=== PATIENT | female | born 1950 | race Caucasian/White ===

== ENCOUNTER → 2018-01-27 | Outpatient (CLI) | payer OTHER | LOC: FIMAGING 07:58 | PROVIDERS: ATTEND Internal Medicine Hematology & Oncology | DX: C24.0 Malignant neoplasm of extrahepatic bile duct (principal) | CPT/HCPCS: 78306; A9503 ==

== ENCOUNTER → 2018-02-08 | Outpatient (CLI) | payer OTHER ==
[~2018-02-08] MED LIST: LIDOCAINE 1% 300 MG/30 ML SDV ONE
--- NOTE | 2018-02-10 14:10 | PDRADPN ---
Radiology Procedure Note Date of Procedure: 02/10/18 Radiologist: Mitch Lao Anesthesia: Local (Specify) Pre-op Diagnosis: ascites Post-op Diagnosis: same Indication: therapeutic Procedure: paracentesis Finding(s): RUQ 6F access Inf/Abcess present in the surg proc area at time of surgery?: No EBL: Minimal Complications: none
== END ==
LOC: FIMAGING 14:13
PROVIDERS: ATTEND Nurse Practitioner
PROC: 0W9F3ZZ Drainage of Abdominal Wall, Percutaneous Approach (ICD-10-PCS; principal; 2018-02-08)
DX: R18.8 Other ascites (principal)

== ENCOUNTER 2018-11-08 10:43 | Inpatient (IN) | payer OTHER ==
[2018-11-08] MEDS ORDERED: PROMETHAZINE HCL 25 MG/ML INJ IVP PRN (15:17)
[2018-11-08] MEDS ORDERED: ONDANSETRON DISINTEGRATING 4 MG TAB PO PRN (15:17)
[2018-11-08] MEDS ORDERED: ONDANSETRON 4 MG/2 ML VIAL IVP PRN (15:17)
[2018-11-08] MEDS ORDERED: NS 1,000 ML IV ONE (15:17)
--- NOTE | 2018-11-08 15:22 | PDGENHP ---
History and Physical - Chief Complaint abdominal pain - History of Present Illness 68 yo female with h/o cholangiocarcinoma diagnosed in 01/2018 presents to ED from [facility] with acute abdominal pain with N/V. She has been treated q21d with Cisplatin/Gemcitabine and has tolerated this well. She was due for chemo today , which was held due to her acute abdominal pain, nausea and vomiting. She notes over the past 2 days, she has felt nausea and poor appetite with decreased oral intake. She awoke this morning with abdominal pain and this became severe by the time she arrived for her chemo appointment today. She has had a low grade fever. No jaundice noted. Denies abdominal distention, but feels a little bloated. Not sure about weight loss. No CP, SOB or cough. At [facility], she was tachycardic and received 1L NS. Upon arrival to several hours later, she remains tachycardic with HR 120's-130's. Her temp is 99.8. Her BP is 90/59. She received IV Morphine, but this has not improved her pain. She continues to have severe pain. She is admitted for further evaluation. 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 anemia 2/2 chemo. thrombocytopenia 2/2 chemo - Surgical History Additional surgical history: Port placement left chest - Family History Positive for: cancer Additional family history: mom had lung cancer - Social History Smoking Status: Never smoked Alcohol Use: None Drug Use: None Additional social history: Lives independently, 2 children at bedside Review of Systems Review of Systems: ROS: 10pt was reviewed & negative except for what was stated in HPI & below Physical Exam Physical Exam: Temp Pulse Resp BP Pulse Ox 37.7 C 121 H 16 98/59 L 93 11/08/18 15:11 11/08/18 15:11 11/08/18 15:11 11/08/18 15:11 11/08/18 15:11 Constitutional: no apparent distress Eyes: PERRL Ears, Nose, Mouth, Throat: moist mucous membranes Cardiovascular: regular rate and rhythym Respiratory: no respiratory distress, clear to auscultation Gastrointestinal: other (soft, mild distention, +TTP with some concern for rigidity and pain on percussion, absent bowel tones) Skin: warm Musculoskeletal: full muscle strength Neurologic: AAOx3 Psychiatric: interacting appropriately Assessment & Plan Assessment: Abdominal pain with N/V - with h/o cholangiocarcionoma and biliary stents. DDx : progressing cancer, SBO, cholangitis, blocked biliary stent (though LFT's nl) . WBC's nl, afebrile, though temp up to 99.8 here. -stat CT abd/pelvis -send BCx's, lactate, lipase -cover with zosyn for possible cholangitis -pain control, anti-emetics, IVF's -note presence of biliary stent, due for exchange this Thurs Cholangiocarcinoma with mets to liver/bone - followed by Dr. Lucero, on Cisplatin /Gemcitabine since diagnosis in 01/2018, has previously been tolerating chemo well. Chemo held today given acute illness above. -Oncology notified of admission, Dr. So will see pt tomorrow Anemia - may be related to chemo, has been steadily trending down since 01/2018, at which time hgb was nl -check iron studies -transfuse 1 u prbc's given hgb down to 7.1 with tachycardia and need for volume replacement Hyponatremia - suspect hypovolemic hyponatremia given poor oral intake -NS and follow -check urine Na, urine osm Tachycardia - suspect sinus tac 2/2 pain, volume depletion, possible sepsis -check EKG -consider PE w/u if not resolving with IVF's (no hypoxemia, SOB or pleuritic symptoms) DVT PPLX - Lovenox to start in am if nothing surgical on CT Full code Dispo - admit to inpt, anticipate >48 hrs hospitalization for ongoing evaluation and management of acute abdominal pain
[2018-11-08] MEDS: HYDROmorphONE/DILAUDID 1 MG/ML INJ IVP PRN ×3 (15:30→21:07)
[2018-11-08] MEDS: PIPERACILLIN/TAZO 4.5 GM/DEX 100 ML IV SCH ×2 (16:09→22:05)
[2018-11-08] MEDS: ACETAMINOPHEN 325 MG TAB PO PRN ×2 (16:14→20:40)
[2018-11-08] MEDS ORDERED: IOPAMIDOL (ISOVUE-300) 100 ML BTL ONE (17:04)
[2018-11-08] MEDS ORDERED: NS 500 ML IV ONE (17:49)
[2018-11-08] MEDS ORDERED: PIPERACILLIN/TAZO 4.5 GM/DEX 100 ML IV SCH (18:00)
--- NOTE | 2018-11-08 18:08 | PDMN ---
Medical Necessity Medical necessity: Pt meets IP criteria as of 11/08/2018 per and [id number] ( Gallbladder or bile duct inflammation or stone); est los > 2 mn for ongoing tx and management of acute cholangitis with fever, tachycardia, leukocytosis and anemia in the setting of cholangiocarcinoma with mets to bone and liver currently being treated with chemo; requiring IV ABX, serial labs, blood transfusion, pain and nausea control, and oncology consultation.
[2018-11-08 22:15] LABS: PLATELET COUNT 103 10^3/uL (150-400)
[2018-11-09] MEDS: ACETAMINOPHEN 325 MG TAB PO PRN ×2 (00:01→06:37)
[2018-11-09] MEDS: PIPERACILLIN/TAZO 4.5 GM/DEX 100 ML IV SCH (03:17)
[2018-11-09] MEDS: HYDROmorphONE/DILAUDID 1 MG/ML INJ IVP PRN ×4 (03:17→20:02)
[2018-11-09 04:21] LABS: PLATELET COUNT 81 10^3/uL (150-400)
[2018-11-09] MEDS ORDERED: NS 1,000 ML IV ONE (05:15)
--- NOTE | 2018-11-09 06:15 | CPEKG ---
Test Reason : OPEN Blood Pressure : / mmHG Vent. Rate : 125 BPM Atrial Rate : 126 BPM P-R Int : 089 ms QRS Dur : 072 ms QT Int : 264 ms P-R-T Axes : 098 000 210 degrees QTc Int : 381 ms Sinus tachycardia Indeterminate axis Confirmed by Scott Castellanos ([id number]) on 11/09/2018 6:15:16 AM Referred By: Confirmed By:Scott Castellanos
--- NOTE | 2018-11-09 08:09 | GCON ---
The patient is a 68-year-old female with a history of cholangiocarcinoma, which has been diagnosed fo r 7 months. She has been on chemotherapy with a port. She had carcinomatosis with ascites, which mario s required some paracentesis, and she has had known liver metastases. She has had bile duct stents, which have relieved her jaundice. She came to the hospital tonight complaining of severe abdominal p ain, not well localized. She has had some nausea and vomiting. She has had no diarrhea, no jaundice . She did have a low-grade fever earlier today but never even reaching 100. ALLERGIES: None. MEDICATIONS: Listed in the chart. PAST MEDICAL HISTORY: Includes cholangiocarcinoma with metastases to liver and bone and peritoneum. She has a history of thrombocytopenia and chronic anemia. She had a port placed in her left chest. FAMILY HISTORY: Positive for cancer. SOCIAL HISTORY: Reveals she does not smoke. She lives independently. REVIEW OF SYSTEMS: Negative on a full 10-point review except as related to the HPI. PHYSICAL EXAMINATION: GENERAL: An alert, reasonably comfortable 68-year-old female who is in no acu te distress, low-grade temperature. HEENT: Nonicteric without adenopathy. No oral lesions. NECK: Supple, nontender. CHEST: Symmetrical breath sounds. COR: Regular rhythm, mild tachycardia. ABD OMEN: Slightly distended, soft but diffusely tender, but with no real peritoneal signs and no palpab le masses. She is mildly tender in the right upper quadrant compared to the rest. Bowel sounds are decreased. EXTREMITIES: Reveal full range of motion, full pulses. NEUROLOGIC: Physiologic with in tact cranial nerves. PSYCH: Reveals her to be alert, oriented and cooperative. IMPRESSION: Abdominal pain of uncertain etiology. CT scan shows a large cystic mass in the right lo be of the liver consistent with her cholangiocarcinoma, but according to family, she has never had a big mass like that, has had only small, tiny lesions before. Her previous CT scans are not readily a vailable tonight. She has no other signs of abdominal problems including no free air on the CT scan. She does have some minimal ascites and some thickening in the mesentery of the small bowel. It is not clear to me what the etiology of her pain is, although I suspect that she is febrile and possibly early sepsis from this possible abscess in the right lobe of the liver. PLAN: Follow her closely, find her previous scans for comparison, consideration for laparoscopy if s he fails to improve. We will also repeat her CBC and lactate this evening. Copy requested to: Dr. Lucero /[id number]/MODL
[2018-11-09] MEDS: SODIUM FERRIC GLUCONAT/SUCROSE 125 MG in NS 100 ML IV SCH (08:28)
[2018-11-09] MEDS ORDERED: ENOXAPARIN 40 MG/0.4 ML SYR SC SCH (09:00)
[2018-11-09] MEDS ORDERED: PROCHLORPERAZINE MALEATE 10 MG TAB PO PRN (09:11)
[2018-11-09] MEDS ORDERED: ALTEPLASE 2 MG VIAL IVP PRN ×2 (09:12→14:23)
[2018-11-09] MEDS ORDERED: VASOPRESSIN 25 UNIT in NS 250 ML IV SCH (09:15)
--- NOTE | 2018-11-09 09:23 | HOSPPROG ---
Hospitalist Progress Note Assessment/Plan: # septic shock with lactic acidosis and renal failure - MAP currently 54 after transfusion, fluid bolus - transfer to ICU, place PICC, start pressors, cont IVF # hepatic abscess - will drain via IR today - appreciate Dr Cain' assistance - Dr Wilcox will consult - jessica # biliary stents - will need to discuss with GI at some point regarding changing ; need control of infection first # cholangiocarcinoma - getting chemo at [facility] - will d/w Dr So # acute renal failure - d/t sepsis; she also got contrast yesterday # anemia - s/p 1U PRBC # thrombocytopenia - will cont to follow Subjective: still c/o R sided abd pain Objective: Vital Signs Temp Pulse Resp BP Pulse Ox 36.6 C 94 16 81/50 L 97 11/09/18 08:13 11/09/18 08:13 11/09/18 08:13 11/09/18 08:13 11/09/18 08:13 Laboratory Results 11/09/18 04:00 11/09/18 04:00 11/08/18 11/09/18 11/10/18 05:59 05:59 05:59 Intake Total 3700 Output Total 275 Balance 3425 chart reviewed imaging reviewed with Dr Kenney 40 mins floor CC time managing septic shock - Physical Exam Constitutional: chronically ill appearing Cardiovascular: regular rate and rhythym, no murmur, rub, or gallop Respiratory: no respiratory distress, no rales or rhonchi, clear to auscultation Gastrointestinal: normoactive bowel sounds, other (soft, significant R sided TTP ) ICD10 Worksheet Patient Problems: Problems Problem Status Onset Sepsis Acute
--- NOTE | 2018-11-09 10:03 | ASMTCMCOM ---
CM Note CM Note Notes: Patient chart reviewed. 68 year old female with DNR status admitted via ED for c/o severe abdominal pain. Diagnosis of cholangiocarcinoma 7 months ago and has been undergoing treatments. Per CT large mass on liver is newer and could represent abscess This am she is exhibiting signs of sepsis and will transfer to ICU for more support. CM to follow for needs. Plan: TBD Date Signed: 11/09/2018 10:02 AM Electronically Signed By:Rebekah Wen RN
[2018-11-09 10:20] LABS: INR 1.99 (0.83-1.16); PROTIME(PATIENT) 22.7 SEC (12.0-15.0)
[2018-11-09] MEDS ORDERED: PROTOCOL CALCIUM 1 DOSE IV PRN (10:27)
[2018-11-09] MEDS ORDERED: CALCIUM GLUCONATE 50 ML IV ONE (11:24)
[2018-11-09] MEDS ORDERED: IOPAMIDOL (ISOVUE-300) 100 ML BTL ONE (12:02)
[2018-11-09] MEDS ORDERED: LIDOCAINE 1% 300 MG/30 ML SDV ONE ×2 (12:02→14:21)
[2018-11-09] MEDS: NS 1,000 ML IV SCH (12:10)
[2018-11-09] MEDS: PIPERACILLIN/TAZO 2.25 GM/DEX 50 ML IV SCH ×2 (12:16→17:32)
--- NOTE | 2018-11-09 13:19 | SOAPPROG ---
SOAP Progress Note Assessment/Plan: Assessment/Plan: 68 Y F hx cholangiocarcinoma c carcinomatosis, ascites, liver mets, treated c chemotherapy via port who now presents with abdominal pain and likely liver abscess. Discussed c Drs. Cain and Brenden. Patient to go to IR today for attempt at guided percutaneous drainage. If unable to drain, then may still need surgical drainage/diagnosis. Trying to obtain previous CT scans from outside institution. S: feeling about "50%" better (less pain) she says. has baseline constipation. no nausea. no chills or sweats. O: alert, nad wdwn, mmm, no jaundice ctab anteriorly rrr abd rare BS. +softly distended. 11/09/18 13:14 Objective: Vital Signs Temp Pulse Resp BP Pulse Ox 36.8 C 99 21 H 90/44 L 98 11/09/18 12:00 11/09/18 12:00 11/09/18 12:00 11/09/18 12:00 11/09/18 12:00 Laboratory Results 11/09/18 09:25 11/09/18 09:25 11/08/18 11/09/18 11/10/18 05:59 05:59 05:59 Intake Total 3700 Output Total 275 250 Balance 3425 -250 PT 22.7 SEC (12.0-15.0) H 11/09/18 09:52 INR 1.99 (0.83-1.16) H 11/09/18 09:52 ICD10 Worksheet Patient Problems: Problems Problem Status Onset Sepsis Acute
--- NOTE | 2018-11-09 13:27 | GCON ---
INFECTIOUS DISEASE CONSULTATION REFERRING PHYSICIAN: Napoleon Benjamin MD REASON FOR CONSULTATION: Possible liver abscess. HISTORY OF PRESENT ILLNESS: 68-year-old woman with a history of cholangiocarcinoma diagnosed in January of 2018, who is directly admitted to the hospital 11/08/2018, for sudden onset of abdominal pain associated with nausea, vomiting. The patient has cholangiocarcinoma and is treated every 21 days with cisplatin and gemcitabine, and overall has been tolerating this well. Notably, patient has had progressive abdominal distention with minimal abdominal pain over the last 2 weeks. She has had more days that are bad than good over this duration, but on 11/08/2018, patient developed sudden onset of diffuse abdominal pain with associated nausea, vomiting, and presented to [facility], who directly admitted her to the hospital yesterday. At [facility], she was tachycardic, received IV fluids, and had a low-grade temperature. The patient subsequently underwent a CT scan on , and she was found to have a 7.5 x 5.3 cm cystic mass that was new in the liver. Patient has known biliary obstruction in the past and has both left and right hepatic biliary stents with pneumobilia that were present on the CT scan. The patient was due for her biliary stent exchange in the next week. Her appetite is overall low, but has not dramatically changed over this duration. She has not had a significant amount of weight loss. No diarrhea. She has chronic constipation. She states that her abdominal pain is significantly better overnight, characterizing at as 50% improved. No further nausea/vomiting. Overnight, patient received IV Zosyn. Planned transfer to the ICU today for ongoing hypotension and development of acute renal failure with a creatinine of 2.1. PAST MEDICAL HISTORY: 1. Cholangiocarcinoma, 01/19/2018, with mets to liver and bone. The patient is DNR, but does desire aggressive treatment for reversible problems. 2. Anemia secondary to chemotherapy, thrombocytopenia secondary to chemo. PAST SURGICAL HISTORY: She had a port placement in her left chest. FAMILY HISTORY: Positive for lung cancer in her mom. SOCIAL HISTORY: She has 2 children, who are at bedside. She has never smoked. 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 No international travel. Last travel was about a year and half ago when she traveled to [place]. ALLERGIES: NKDA. MEDICATIONS: Zosyn 4.5 g IV q.6hours. No anticoagulants, no other antibiotics. She is on Lovenox since admission and started on dexamethasone 2 p.o. b.i.d. for sepsis protocol. REVIEW OF SYSTEMS: A complete 10-point review of systems was performed at the bedside with the patient and her 2 kids at bedside as well. PHYSICAL EXAM: VITAL SIGNS: Blood pressure is 94/43, heart 91, respiratory rate 16, saturation 96% on room air, temperature 36.4, T-max 37.7. GENERAL: This is a very pleasant woman who is in no respiratory distress. HEENT: Very dry mucous membranes. Good dentition. No oral ulcerations or exudate. NECK: Supple. CARDIOVASCULAR: Regular rate. No murmurs. CHEST: She had bibasilar crackles, right greater than left. ABDOMEN: Distended, firm. She had diffuse abdominal pain to palpation, but no peritoneal signs. Abdominal pain was worse in the left lower quadrant. EXTREMITIES: No clubbing, cyanosis, or edema. No peripheral stigmata of endocarditis. NEUROLOGIC: She is alert and oriented x4 , moving all 4 extremities equally. She did have a little bit of word-finding troubles, but reports this is at baseline, which is endorsed by her family as well since starting chemotherapy. SKIN: No rashes. Port L upper chest wall c/d /i LABORATORY: White count 8700, with 35% neutrophils, 42% bands, hematocrit 22, platelets 81, creatinine 2.0, total bilirubin 1.5, AST 21, ALT 3.9, alkaline phosphatase 42. Blood cultures from November 08 are pending. IMAGING: As per HPI, which was personally reviewed by me. IMPRESSION: This is a 68-year-old woman with metastatic cholangiocarcinoma, on chemotherapy, who presents with severe and sudden onset abdominal pain, subsequently found to have hypotension, bandemia, and acute renal failure. Certainly, this cystic mass 7.5 x 5.3 is certainly at high risk for being a liver abscess due to poor biliary drainage. Also could consider necrotic malignancy, but lack of its presence in the imaging in the last month or 2 makes that less likely. PLAN: 1. Agree with IR drainage. 2. Adjust renal dosing of Zosyn to 2.25 IV q.6 for a creatinine clearance in the 20s. 3. Will continue to follow cultures and evaluate cultures from the IR. Parasitic liver abscess very unlikely in this woman with minimal travel history. Time: 75 minutes, greater than 50% of time spent in education and counseling regarding the etiology of liver abscess and planned treatment, including antibiotic dose adjustments for renal insufficiency and longer duration of antibiotic therapy. ID will continue to see the patient on a daily basis. /[id number]/MODL MTDD
[2018-11-09] MEDS ORDERED: NS 500 ML IV ONE (13:30)
[2018-11-09] MEDS: NOREPINEPHRINE BITARTRATE 4 MG in NS 500 ML IV SCH ×2 (13:40→13:41)
--- NOTE | 2018-11-09 13:47 | GCON ---
BUSINESS OFFICE ASSISTANT CONSULTATION REASON FOR ADMISSION: Fever, cholangiocarcinoma. HISTORY OF PRESENT ILLNESS: The patient is an extremely pleasant 68-year-old white female with a pas t medical history, including cholangiocarcinoma. This was diagnosed in December of this year. She h as metastases to both liver and bone. She has undergone chemotherapy. She was originally at [facility] and at that time was found to be tachycardic. She was given hydration, but she continued to have abdominal pain. She was seen in the emergency room, was subsequently admitted wit h a diagnosis of abdominal pain and cholangiocarcinoma. A CT scan of the abdomen and pelvis was orde red. This revealed a large right hepatic multiloculated cystic mass, as well as an abscess formation . There are also scattered hepatic hypodense lesions suggestive of intrahepatic metastatic disease. She was subsequently admitted to the intensive care unit for hypotension. A PICC line has been plac ed, and she is scheduled for drainage of her abscess per Interventional Radiology. In discussion wit h the patient, she states overall she feels markedly improved. Her abdominal pain has subsided mostl y. She has no nausea or vomiting. There is no chest pain, pleuritic-type chest pain or angina equiv alent. There is no cough or production of sputum. She is currently resting comfortably after PICC l ine was placed. REVIEW OF SYSTEMS: Ten-point review of systems was performed and negative, except for what is listed in the HPI. PAST MEDICAL HISTORY: Again significant for metastatic cholangiocarcinoma with history of biliary st ents. She has metastasis to liver and bone. She also has thrombocytopenia and anemia. FAMILY HISTORY: Significant for lung cancer. SOCIAL HISTORY: No history of tobacco use. Very infrequent alcohol use. She is . She has lived in [place] for 2-1/2 years, is originally from [place], [place]. She has excellent family bone pport. ALLERGIES: No known allergies to medications. PHYSICAL EXAM: VITAL SIGNS: Blood pressure is 90/44, pulse 99, respirations 21, temperature 36.8, o xygen saturation 98% on room air. GENERAL: She is a well-developed, well-nourished, elderly white f emale who is resting comfortably, in no acute distress. HEENT: Eyes are PERRL, EOMI. Throat shows no erythema or tonsillar hypertrophy. NECK: Supple. There is no cervical adenopathy. HEART: Regu lar rate and rhythm, without murmurs, rubs, or gallops. LUNGS: Clear to auscultation. No wheezes o r rhonchi. ABDOMEN: Soft. She has right upper quadrant tenderness. Bowel sounds are diminished. EXTREMITIES: No clubbing, cyanosis, or edema. LABORATORIES: White count is 10.2, hemoglobin 7.5, hematocrit 23, platelet count 76. INR is 1.99. Sodium 132, potassium 4.2, chloride 104. CO2 is 18, BUN 25, creatinine 1.9. Glucose is 81. IMPRESSION: 1. Metastatic cholangiocarcinoma with biliary stents. 2. Sepsis. 3. Liver abscess. 4. Abdominal pain, improved. 5. Thrombocytopenia. 6. Anemia. RECOMMENDATIONS: 1. Adequate pain control. 2. PICC line has been placed. 3. Patient to go to Interventional Radiology for drainage of abscess. 4. Antibiotics per Infectious Disease. 5. DVT and PE prophylaxis. 6. Stress ulcer prophylaxis. 7. Adequate nutrition. /[id number]/MODL
[2018-11-09] MEDS ORDERED: NALOXONE HCL 0.4 MG/ML INJ IVP PRN (14:23)
[2018-11-09] MEDS ORDERED: MEPERIDINE 25 MG/ML SYR IVP PRN (14:23)
[2018-11-09] MEDS ORDERED: fentaNYL 100 MCG/2 ML INJ IVP PRN (14:23)
[2018-11-09] MEDS ORDERED: NS 1,000 ML IV SCH (14:30)
--- NOTE | 2018-11-09 15:49 | PDPROPOC ---
Sedation Plan of Care Sedation Plan of Care: vital signs stable, mental status noted, patient educated of risks, benefits, alternatives, patient can tolerate sedation ASA Classification: ASA 3 Planned drugs: fentanyl, midazolam Mallampati Score: Class 2 Mallampati Reference Image: Patient passed 3-3-2 rule?: Yes
--- NOTE | 2018-11-09 15:50 | PDCONSULT ---
[employer] Systems Administrator Note: Hematology/oncology consultation note Requesting provider: Penelope Vo Reason for consultation: History of cholangiocarcinoma History of present illness: Mrs. Ayala is a 68-year-old female with history of cholangiocarcinoma who was admitted for worsening abdominal pain from our clinic. She has well- established within our clinic here in [place] and sees my partner Dr. Yolanda Lucero for advanced cholangiocarcinoma. She was initially diagnosed with an extrahepatic cholangiocarcinoma in January of 2018. She is found to have metastatic disease to the bone. She was initiated on first-line palliative chemotherapy with gemcitabine and cisplatin. She did have a dramatic response within the liver on scans in March of 2018. Her last set of imaging was in September 2018 with a PET that demonstrated uptake within the lesion in the liver. She did have up trending CA 19-9 with concern for possible progression. She has received a total of 13 cycles of gemcitabine and cisplatin with the last dose being 10/25/2018. She then presented to our clinic yesterday and had increasing symptoms of abdominal pain and nausea. She was admitted to [facility] with tachycardia, renal failure. She had a CT of the abdomen on 11/08/2018 the demonstrates 7.5 x 5.3 cm mass within the liver. She does have biliary stent in place as was scheduled to be changed out next week. On admission it was concerned that she might have a biliary abscess and was placed on broad-spectrum antibiotics. She has since underwent IR guided attempted drainage. Past medical history and surgical history: Cholangiocarcinoma as per above Port placement Family history: Mother had lung cancer Social history: She is a never smoker. Review of systems A 12 point review systems was taken was otherwise negative unless stated in HPI Allergies no known drug allergies Medications: Reviewed in [facility] Tem Pulse Resp BP Pulse Ox 36.8 C 99 21 H 117/55 L 100 11/09/18 12:00 11/09/18 12:00 11/09/18 12:00 11/09/18 15:35 11/09/18 15:36 O2 (L/minute) 1 General: Ill-appearing female, groggy from recent sedation from procedure HEENT: Oxygen in place oropharynx is clear extra movements are intact Pulmonary: Clear on anterior auscultation Cardiovascular: Regular rhythm Abdomen: Soft nontender nondistended bowel sounds are present no rebound or guarding, 2 right upper quadrant drains in place with maday pus draining. Extremities: Port in place no cyanosis or clubbing Skin: No skin lesions Neuro: Moving all extremities WBC 10.25 10^3/uL (3.80-9.50) H 11/09/18 09:25 RBC 2.58 10^6/uL (4.18-5.33) L 11/09/18 09:25 Hgb 7.5 g/dL (12.6-16.3) L 11/09/18 09:25 Hct 23.7 % (38.0-47.0) L 11/09/18 09:25 MCV 91.9 fL (81.5-99.8) 11/09/18 09:25 MCH 29.1 pg (27.9-34.1) 11/09/18 09:25 MCHC 31.6 g/dL (32.4-36.7) L 11/09/18 09:25 RDW 19.9 % (11.5-15.2) H 11/09/18 09:25 Plt Count 76 10^3/uL (150-400) L 11/09/18 09:25 MPV 11.1 fL (8.7-11.7) 11/09/18 04:00 Neut % (Auto) Not Reported 11/09/18 04:00 Lymph % (Auto) Not Reported 11/09/18 04:00 [place] % (Auto) Not Reported 11/09/18 04:00 Eos % (Auto) Not Reported 11/09/18 04:00 Baso % (Auto) Not Reported 11/09/18 04:00 Nucleat RBC Rel Count Not Reported 11/09/18 04:00 Absolute Neuts (auto) Not Reported 11/09/18 04:00 Absolute Lymphs (auto) Not Reported 11/09/18 04:00 Absolute Monos (auto) Not Reported 11/09/18 04:00 Absolute Eos (auto) Not Reported 11/09/18 04:00 Absolute Basos (auto) Not Reported 11/09/18 04:00 Absolute Nucleated RBC Not Reported 11/09/18 04:00 Immature Gran % Not Reported 11/09/18 04:00 Seg Neutrophils % 35.0 % 11/09/18 04:00 Band Neutrophils % 42.0 % 11/09/18 04:00 Lymphocytes % 8.0 % 11/09/18 04:00 Monocytes % 9.0 % 11/09/18 04:00 Eosinophils % 0.0 % 11/09/18 04:00 Basophils % 0.0 % 11/09/18 04:00 Metamyelocytes % 3.0 % 11/09/18 04:00 Myelocytes % 3.0 % 11/09/18 04:00 Promyelocytes % 0.0 % 11/09/18 04:00 Blast Cells % 0.0 % 11/09/18 04:00 Immature Gran # Not Reported 11/09/18 04:00 Absolute Seg Neuts 3.05 10^3/uL (1.70-6.50) 11/09/18 04:00 Absolute Band Neuts 3.66 10^3/uL (0.00-0.70) H 11/09/18 04:00 Absolute Lymphocytes 0.70 10^3/uL (1.00-3.00) L 11/09/18 04:00 Absolute Monocytes 0.78 10^3/uL (0.30-0.80) 11/09/18 04:00 Absolute Eosinophils 0.00 10^3/uL (0.03-0.40) L 11/09/18 04:00 Absolute Basophils 0.00 10^3/uL (0.02-0.10) L 11/09/18 04:00 Absolute Metamyelocyte 0.26 10^3/mL (0.00-0.00) H 11/09/18 04:00 Absolute Myelocytes 0.26 10^3/mL (0.00-0.00) H 11/09/18 04:00 Absolute Promyelocytes 0.00 10^3/uL (0.00-0.00) 11/09/18 04:00 Absolute Plasma Cells 0.00 10^3/uL (0.00-0.00) 11/09/18 04:00 Nucleated RBCs 0 /100 WBC (0-0) 11/09/18 04:00 Absolute Blast Cells 0.00 10^3/uL (0.00-0.00) 11/09/18 04:00 Plasma Cells % 0.0 % 11/09/18 04:00 Toxic Granulation PRESENT H 11/09/18 04:00 Toxic Vacuolation PRESENT H 11/09/18 04:00 Platelet Estimate DECREASED (ADEQ) L 11/09/18 04:00 Polychromasia 2+ H 11/09/18 04:00 Basophilic Stippling 1+ H 11/09/18 04:00 Microcytic Cells 1+ H 11/09/18 04:00 Tear Drop Cells 1+ H 11/09/18 04:00 Smear Review By Cyndie HUANG MD 11/09/18 04:00 PT 22.7 SEC (12.0-15.0) H 11/09/18 09:52 INR 1.99 (0.83-1.16) H 11/09/18 09:52 APTT 47.4 SEC (23.0-38.0) H 11/09/18 09:52 VBG Lactic Acid 2.3 mmol/L (0.7-2.1) H 11/09/18 09:25 Sodium 132 mEq/L (135-145) L 11/09/18 09:25 Potassium 4.2 mEq/L (3.5-5.2) 11/09/18 09:25 Chloride 104 mEq/L (97-110) 11/09/18 09:25 Carbon Dioxide 18 mEq/l (22-31) L 11/09/18 09:25 Anion Gap 10 mEq/L (6-14) 11/09/18 09:25 BUN 25 mg/dL (7-23) H 11/09/18 09:25 Creatinine 1.9 mg/dL (0.6-1.0) H 11/09/18 09:25 Estimated GFR 26 11/09/18 09:25 Glucose 81 mg/dL (70-100) 11/09/18 09:25 Calcium 5.9 mg/dL (8.5-10.4) L* 11/09/18 09:25 Ionized Calcium 0.90 MMOL/L (1.12-1.30) L 11/09/18 11:00 Iron < 10.0 mcg/dL (37.0-170.0) L 11/08/18 15:40 TIBC 212 ug/dL (260-490) L 11/08/18 15:40 Iron Saturation 5 % (20-55) L 11/08/18 15:40 Total Bilirubin 1.5 mg/dL (0.1-1.4) H 11/09/18 04:00 AST 21 IU/L (14-46) 11/09/18 04:00 ALT 39 IU/L (9-52) 11/09/18 04:00 Alkaline Phosphatase 42 IU/L (38-126) 11/09/18 04:00 Total Protein 4.0 g/dL (6.3-8.2) L 11/09/18 04:00 Albumin 2.0 g/dL (3.5-5.0) L 11/09/18 04:00 Lipase 21 IU/L (23-300) L 11/08/18 15:40 Procalcitonin 24.57 ng/mL (0.02-0.10) H 11/08/18 15:40 Urine Color YELLOW 11/08/18 23:52 Urine Appearance HAZY 11/08/18 23:52 Urine pH 5.0 (5.0-7.5) 11/08/18 23:52 Ur Specific [place] 1.029 (1.002-1.030) 11/08/18 23:52 Urine Protein 1+ (NEGATIVE) H 11/08/18 23:52 Urine Ketones NEGATIVE (NEGATIVE) 11/08/18 23:52 Urine Blood NEGATIVE (NEGATIVE) 11/08/18 23:52 Urine Nitrate NEGATIVE (NEGATIVE) 11/08/18 23:52 Urine Bilirubin NEGATIVE (NEGATIVE) 11/08/18 23:52 Urine Urobilinogen NEGATIVE EU (0.2-1.0) 11/08/18 23:52 Ur Leukocyte Esterase NEGATIVE (NEGATIVE) 11/08/18 23:52 Urine RBC 1-3 /hpf (0-3) 11/08/18 23:52 Urine WBC 1-3 /hpf (0-3) 11/08/18 23:52 Ur Epithelial Cells TRACE /lpf (NONE-1+) 11/08/18 23:52 Ur Culture Indicated? NOT INDICATED (NI) 11/08/18 23:52 Urine Osmolality 378 mosmo/kg (300-900) 11/08/18 23:52 Ur Random Sodium 17 mEq/L (30-90) L 11/08/18 23:52 Urine Glucose 3+ (NEGATIVE) H 11/08/18 23:52 Patient ABO/Rh O NEGATIVE 11/08/18 15:40 Antibody Screen NEGATIVE 11/08/18 15:40 Crossmatch IS Only See Detail 11/08/18 15:40 Assessment and plan: Rebekah is a 68-year-old female with history of metastatic cholangiocarcinoma was admitted for worsening abdominal pain with concerns for possible biliary abscess. 1. Intrahepatic abscess and sepsis shock: She underwent percutaneous drain placement with maday pus returning from both drains. I appreciate infectious disease input. She is on broad-spectrum antibiotics. I anticipate she should turn things around fairly quickly. 2. Metastatic cholangiocarcinoma: Aside from the possible abscess formation, some of the imaging findings could be secondary to progressive disease. I agree that in the interim we should workup for underlying infection. 3. Renal failure: Her creatinine has been normal when we see her in clinic. Some of this could be from underlying sepsis versus exposures cisplatin although yesterday her creatinine was normal early yesterday. 4. Hypotension requiring pressor: This likely secondary to sepsis please see 1. 5. Thrombocytopenia: Believes is secondary to chemotherapy. 6. Chemotherapy associated anemia: Will keep hemoglobin greater than 7.
--- NOTE | 2018-11-09 15:50 | PDRADPRE ---
Radiology History & Physical Indication for procedure: cancer, other (Hepatic abscess, perihepatic fluid) Home medications: Dexamethasone [Decadron 2 MG (*)] 2 mg PO BID 11/08/18 [Last Taken Unknown] Prochlorperazine Maleate [Compazine 10mg (*)] 10 mg PO Q6 PRN 11/08/18 [Last Taken Unknown] Ranitidine HCl [Zantac] 150 mg PO BID 11/08/18 [Last Taken Unknown] traMADol [Ultram 50 mg (*)] 50 mg PO Q6 PRN 11/08/18 [Last Taken Unknown] Allergies/Adverse Reactions: No Known Allergies Allergy (Unverified 11/08/18 15:17) Mental status: A&Ox3 Heart exam: regular rate and rhythm Lungs exam: clear to auscultation Mallampati Score: Class 2
--- NOTE | 2018-11-09 16:04 | PDRADPN ---
Radiology Procedure Note Date of Procedure: 11/09/18 Radiologist: Jeffrey Guerrero Anesthesia: IV Sedation Pre-op Diagnosis: Hepatic abscess, perihepatic ascites Post-op Diagnosis: Hepatic abscess, perihepatic ascites Indication: Hepatic abscess, perihepatic ascites Procedure: CT guided hepatic abscess drain, perihepatic drain Finding(s): Brown purulent fluid from hepatic abscess, 10 Fr drain. Sent to micro. Complex, yellow perihepatic fluid 8 Fr drain. Sent to micro. Inf/Abcess present in the surg proc area at time of surgery?: Yes Depth: Organ Space (Liver) Drains: Constavac
[2018-11-09] MEDS: traMADol 50 MG TAB PO PRN (18:31)
[2018-11-09] MEDS: DEXAMETHASONE 2 MG TAB PO SCH (21:59)
[2018-11-09] MEDS: FAMOTIDINE 20 MG TAB PO SCH (21:59)
[2018-11-10] MEDS: PIPERACILLIN/TAZO 2.25 GM/DEX 50 ML IV SCH ×4 (01:32→20:18)
[2018-11-10] MEDS: HYDROmorphONE/DILAUDID 1 MG/ML INJ IVP PRN ×3 (01:32→13:57)
[2018-11-10] MEDS ORDERED: CALCIUM GLUCONATE 2 GM in NS 50 ML IV ONE (07:08)
[2018-11-10 07:53] LABS: PLATELET COUNT 82 10^3/uL (150-400)
[2018-11-10 08:01] LABS: INR 1.6 (0.83-1.16); PROTIME(PATIENT) 19.2 SEC (12.0-15.0)
[2018-11-10] MEDS ORDERED: IOPAMIDOL (ISOVUE 370) 100 ML BTL IV ONE (08:08)
--- NOTE | 2018-11-10 08:30 | HOSPPROG ---
Hospitalist Progress Note Assessment/Plan: #Septic shock with lactic acidosis. Off pressors - # hepatic abscess - s/p drainage by IR 11/09 - await culture data, Zosyn # biliary stents - needs to be exchanged once acute illness resolved. Follows at [facility] # cholangiocarcinoma - getting chemo at [facility] - will d/w Dr So #UZIEL: hypotension, contrast. Cr down to 1.5 #Anemia: transfuse 1 unit today #Thrombocytopenia - will cont to follow #Hypocalcemia: replete #Diet: regular #DVT ppx: SCDs Disp: stable for floor. Inpt admission for IV abx, pain control Subjective: no N/V. pain controlled on current regimen Objective: Vital Signs Temp Pulse Resp BP Pulse Ox 36.6 C 82 16 121/62 H 100 11/10/18 06:00 11/10/18 06:00 11/10/18 06:00 11/10/18 06:00 11/10/18 06:00 Microbiology 11/09/18 15:35 Gram Stain - Final Peritoneal Fluid - Aspirate Laboratory Results 11/10/18 07:35 11/09/18 11/10/18 11/11/18 05:59 05:59 05:59 Intake Total 3700 3249 Output Total 275 355 Balance 3425 2894 PT 19.2 SEC (12.0-15.0) H 11/10/18 07:35 INR 1.60 (0.83-1.16) H 11/10/18 07:35 - Time Spent With Patient Time Spent with Patient: greater than 35 minutes Time Spent with Patient: Greater than 35 minutes spent on this patients care, greater than 50% of time spent counseling, educating, and coordinating care regarding the above mentioned plan. - Physical Exam Constitutional: no apparent distress Eyes: PERRL Ears, Nose, Mouth, Throat: moist mucous membranes Cardiovascular: regular rate and rhythym Respiratory: no respiratory distress Gastrointestinal: distension (firm, mild diffuse TTP. Minimal BS throughout) Genitourinary: No francis in urethra Skin: warm Neurologic: AAOx3, CN II-XII Intact Psychiatric: interacting appropriately ICD10 Worksheet Patient Problems: Problems Problem Status Onset Sepsis Acute
--- NOTE | 2018-11-10 08:35 | PDINTPN ---
Flight Operations Coordinator Progress Note Assessment/Plan: Assessment/plan: * Metastatic cholangiocarcinoma -per Oncology * Liver abscess-status post drainage per IR -continue current antibiotics * Thrombocytopenia * Anemia * Sepsis * Abdominal Pain-reasonably well controlled Subjective: Sitting in bed. Resting comfortably. Complains of mild abdominal pain. Objective: Vital Signs Temp Pulse Resp BP Pulse Ox 36.6 C 82 16 121/62 H 100 11/10/18 06:00 11/10/18 06:00 11/10/18 06:00 11/10/18 06:00 11/10/18 06:00 Microbiology 11/09/18 15:35 Gram Stain - Final Peritoneal Fluid - Aspirate Laboratory Results 11/10/18 07:35 11/09/18 11/10/18 11/11/18 05:59 05:59 05:59 Intake Total 3700 3249 Output Total 275 355 Balance 3425 2894 PT 19.2 SEC (12.0-15.0) H 11/10/18 07:35 INR 1.60 (0.83-1.16) H 11/10/18 07:35 - Time Spent With Patient Time Spent With Patient: 35 min of time spent with patient, over 1/2 involved coordination of care or counseling. Case discussed with nursing Physical Exam - Physical Exam General Appearance: WD/WN, alert EENT: PERRL/EOMI Neck: non-tender, full range of motion Respiratory: chest non-tender, lungs clear, normal breath sounds Cardiac/Chest: normal peripheral pulses, regular rate, rhythm Peripheral Pulses: 2+: carotid (R), carotid (L), femoral (R), femoral (L), dorsalis-pedis (R), dorsalis-pedis (L) Abdomen: normal bowel sounds, soft, No non-tender Pelvic Exam: deferred Rectal: deferred Skin: normal color, warm/dry Extremities: non-tender, normal inspection Neuro/Psych: no motor/sensory deficits, alert, normal mood/affect, oriented x 3 ICD10 Worksheet Patient Problems: Problems Problem Status Onset Sepsis Acute
[2018-11-10] MEDS: FAMOTIDINE 20 MG TAB PO SCH ×2 (09:03→20:18)
[2018-11-10] MEDS: SODIUM FERRIC GLUCONAT/SUCROSE 125 MG in NS 100 ML IV SCH (09:03)
[2018-11-10] MEDS: DEXAMETHASONE 2 MG TAB PO SCH ×2 (09:03→20:18)
[2018-11-10] MEDS: NS 1,000 ML IV SCH (11:51)
--- NOTE | 2018-11-10 17:39 | PCMIDPN ---
Assessment/Plan: Assessment/Plan: * Sepsis due to hepatic abscess status post percutaneous drainage: Gram stain shows polymicrobial samuel with culture showing growth of mixed enteric samuel. Patient is markedly improved post drainage and antibiotic therapy. Continue Zosyn pending additional culture data. May be able to narrow this if no Pseudomonas isolated. Will continue at current dose although may require adjustment if creatinine clearance continues to improve. Follow-up additional culture data as available 11/10/18 17:36 Subjective: Patient feels significantly improved. Transferring out of ICU today. Residual abdominal pain present. Percutaneous drainage notes reviewed. Objective: Vital Signs Temp Pulse Resp BP Pulse Ox 36.8 C 88 20 135/77 H 96 11/10/18 16:00 11/10/18 16:00 11/10/18 14:00 11/10/18 16:00 11/10/18 14:00 Microbiology 11/09/18 15:35 Gram Stain - Final Peritoneal Fluid - Aspirate Laboratory Results 11/10/18 15:15 11/10/18 07:35 11/09/18 11/10/18 11/11/18 05:59 05:59 05:59 Intake Total 3700 3249 1055 Output Total 275 355 700 Balance 3425 2894 355 Zosyn # 2 Abscess Gram stain GPCs in clusters, Gram-positive rods, and GPCs in chains Blood cultures x2 no growth - Physical Exam General Appearance: alert, no apparent distress EENT: No scleral icterus Respiratory: lungs clear, No respiratory distress Cardiac/Chest: regular rate, rhythm Extremities: No inflammation Abdomen: distended, tender (Right upper quadrant), other (JAVIER bulb from abscess with purulent output; other JAVIER bulb with clear yellow ascitic fluid) Skin: No rash Neuro/Psych: No confused ICD10 Worksheet Patient Problems: Problems Problem Status Onset Sepsis Acute
--- NOTE | 2018-11-10 19:00 | SOAPPROG ---
SOAP Progress Note Assessment/Plan: Assessment: Rebekah is a 68-year-old female with history of metastatic cholangiocarcinoma admitted for biliary abscess. 1. Intrahepatic abscess: She status post drainage. We will follow up on cultures. On Zosyn. ID following. 2. Metastatic cholangiocarcinoma: Her chemotherapy will be on hold until her active infectious issues are resolved. 3. Renal failure: Her creatinine is improving 4. Hypotension: Off pressors being moved to floor. 5. Anemia: Stabilized and improved after transfusion. Could be secondary from chemotherapy versus acute illness. 11/10/18 18:58 Subjective: Doing well this morning. Abdominal pain is improved. No chest pain or shortness of breath. Overall is clinically improving. Objective: Vital Signs Temp Pulse Resp BP Pulse Ox 36.8 C 88 20 135/77 H 96 11/10/18 16:00 11/10/18 16:00 11/10/18 14:00 11/10/18 16:00 11/10/18 14:00 Microbiology 11/09/18 15:35 Gram Stain - Final Peritoneal Fluid - Aspirate Laboratory Results 11/10/18 15:15 11/10/18 07:35 11/09/18 11/10/18 11/11/18 05:59 05:59 05:59 Intake Total 3700 3249 1055 Output Total 275 355 700 Balance 3425 2894 355 PT 19.2 SEC (12.0-15.0) H 11/10/18 07:35 INR 1.60 (0.83-1.16) H 11/10/18 07:35 General: Pleasant appearing female appears in no acute distress conversant HEENT: Oropharynx is clear extraocular movements are intact CV: RRR Pulm: CTAB Abdomen: RUQ with drains, soft, NT, BS+ Skin: No skin lesions Psych: Appropriate ICD10 Worksheet Patient Problems: Problems Problem Status Onset Sepsis Acute
[2018-11-10] MEDS: ACETAMINOPHEN 325 MG TAB PO PRN (20:10)
[2018-11-11] MEDS: HYDROmorphONE/DILAUDID 1 MG/ML INJ IVP PRN (01:06)
[2018-11-11] MEDS: PIPERACILLIN/TAZO 2.25 GM/DEX 50 ML IV SCH ×4 (01:06→18:11)
[2018-11-11] MEDS: ACETAMINOPHEN 325 MG TAB PO PRN ×2 (06:42→13:21)
[2018-11-11] MEDS: traMADol 50 MG TAB PO PRN ×2 (07:38→18:22)
[2018-11-11] MEDS ORDERED: CALCIUM GLUCONATE 50 ML IV ONE (08:44)
[2018-11-11] MEDS: FAMOTIDINE 20 MG TAB PO SCH ×2 (09:08→20:25)
[2018-11-11] MEDS: DEXAMETHASONE 2 MG TAB PO SCH ×2 (09:08→20:25)
[2018-11-11] MEDS: SODIUM FERRIC GLUCONAT/SUCROSE 125 MG in NS 100 ML IV SCH (10:02)
--- NOTE | 2018-11-11 13:30 | HOSPPROG ---
Hospitalist Progress Note Assessment/Plan: #Septic shock with lactic acidosis. Off pressors #Hepatic abscess - s/p drainage by IR 11/09 - await culture data, Zosyn -Re-image once drain output <20cc. If not improving, may need surgical drainage #Biliary stents - needs to be exchanged once acute illness resolved. Follows at [facility] #Cholangiocarcinoma - getting chemo at [facility] - will d/w Dr So #UZIEL: multifactorial with hypotension, contrast. Cr down to 1.5 #Normocytic anemia: transfused 1 unit 11/10 #Thrombocytopenia: improved #Hypocalcemia: replete #Diet: regular #DVT ppx: SCDs Disp: stable for floor. Inpt admission for IV abx, pain control Subjective: had small BM. Abd pain controlled Objective: Vital Signs Temp Pulse Resp BP Pulse Ox 36.3 C 77 16 151/84 H 97 11/11/18 09:39 11/11/18 09:39 11/11/18 09:39 11/11/18 09:39 11/11/18 09:39 Microbiology 11/09/18 15:35 Gram Stain - Final Peritoneal Fluid - Aspirate Laboratory Results 11/11/18 05:30 11/11/18 05:30 11/10/18 11/11/18 11/12/18 05:59 05:59 05:59 Intake Total 3249 1555 600 Output Total 355 735 Balance 2894 820 600 PT 19.2 SEC (12.0-15.0) H 11/10/18 07:35 INR 1.60 (0.83-1.16) H 11/10/18 07:35 - Time Spent With Patient Time Spent with Patient: greater than 35 minutes Time Spent with Patient: Greater than 35 minutes spent on this patients care, greater than 50% of time spent counseling, educating, and coordinating care regarding the above mentioned plan. - Physical Exam Constitutional: no apparent distress Eyes: PERRL Ears, Nose, Mouth, Throat: moist mucous membranes Cardiovascular: regular rate and rhythym, no murmur, rub, or gallop Respiratory: no respiratory distress Gastrointestinal: distension (firm, but softer than yesterday. +BS. Peritoneal, abscess drains in place) Genitourinary: no bladder fullness Skin: warm Musculoskeletal: full muscle strength Neurologic: AAOx3, CN II-XII Intact Psychiatric: interacting appropriately ICD10 Worksheet Patient Problems: Problems Problem Status Onset Sepsis Acute
--- NOTE | 2018-11-11 13:35 | PCMIDPN ---
Assessment/Plan: # Polymicrobial liver abscess likely due to biliary obstruction s/p drainage. Patient with 50-60 cc out daily. Preliminary organisms are Streptococcus and Enterococcus which would be covered by Zosyn. Elevated white count likely reflects more appropriate reaction to infection and maturity neutrophils resulting from significant bandemia at presentation. She has remained afebrile. --creatinine clearance has improved to about 30 but will leave patient on Zosyn 2.25 g IV Q 6 which would be standard dosing for that creatinine clearance. At this point no need to cover for Pseudomonas. --plan to repeat imaging when liver abscess drainage drops down to around 20 cc a day. Discussed potential need for surgical removal if inadequate drainage with tube placed by IR # acute renal failure: Improving, creatinine clearance around 30 Medications Zosyn 2.25 g IV Q 6, # 3 Subjective: Pt is alert and sitting up in bed. She states it is surprising to see how distended" her abdomen is since drain was placed to drain fluid. Notes that she had a bowel movement today and admits to improving appetite. Pt states that she definitely wants to remove the infection and endorses need for possible surgery. Pain is controlled with current pain med regimen Helena Dumas, am scribing for, and in the presence of, Lo Wilcox MD. Lo Dumas MD, personally performed the services described in this documentation, as scribed by Helena Cabrera in my presence, and it is both accurate and complete. Objective: Vital Signs Temp Pulse Resp BP Pulse Ox 36.3 C 77 16 151/84 H 97 11/11/18 09:39 11/11/18 09:39 11/11/18 09:39 11/11/18 09:39 11/11/18 09:39 Microbiology 11/09/18 15:35 Gram Stain - Final Peritoneal Fluid - Aspirate Laboratory Results 11/11/18 05:30 11/11/18 05:30 11/10/18 11/11/18 11/12/18 05:59 05:59 05:59 Intake Total 3249 1555 600 Output Total 355 735 Balance 2894 820 600 Microbiology 11/09/18 Peritoneal Fluid - Aspirate Gram Stain positive for 4+ PMNs, 2+ GPC in clusters, 2+ GPC in chains, 1+ gram positive rods and culture grew, 4+ Streptococcus anginosus Group and rare Enterococcus Faecalis. 11/08/18 Blood cx (2/2 sets), pending results. - Physical Exam General Appearance: alert, no apparent distress, other (more vigorous than prior exam ) EENT: pale conjunctiva, dry mucous membranes, No scleral icterus Respiratory: lungs clear, No accessory muscle use Neck: supple Cardiac/Chest: regular rate, rhythm, other (faint systolic murmur, port in upper chest wall ) Extremities: other, No pedal edema Abdomen: distended, ascites, other (RUQ tenderness, protuberant and firm abdomen. JAVIER drain #1 with brown cloudy fluid. JAVIER drain #2 with serous straw- colored fluid. ), No guarding Skin: pallor, No rash Neuro/Psych: alert, normal mood/affect, oriented x 3 - Time Spent With Patient Time Spent with Patient: greater than 35 minutes Time Spent with Patient: Greater than 35 minutes spent on this patients care, greater than 50% of time spent counseling, educating, and coordinating care regarding the above mentioned plan. ICD10 Worksheet Patient Problems: Problems Problem Status Onset Sepsis Acute
[2018-11-12] MEDS: PIPERACILLIN/TAZO 2.25 GM/DEX 50 ML IV SCH ×3 (00:26→11:37)
[2018-11-12] MEDS: traMADol 50 MG TAB PO PRN ×3 (00:26→16:00)
--- NOTE | 2018-11-12 08:31 | HOSPPROG ---
Hospitalist Progress Note Assessment/Plan: #Septic shock with lactic acidosis. Off pressors #Hepatic abscess - Strep and Enterococcus -s/p drainage by IR 11/09 -Re-image once drain output <20cc. If not improving, may need surgical drainage #Leukocytosis: up to 24. Likely stress-reaction to infection. Remains afebrile, bld cx negative #Biliary stents - needs to be exchanged once acute illness resolved. Follows at [facility] #Cholangiocarcinoma: no chemo until recovered from acute illness #UZIEL: multifactorial with hypotension, contrast. Cr down to 1.4 #Normocytic anemia:H/H stable. Last transfused 11/10 #Thrombocytopenia: improved #Hypocalcemia: replete #Deconditioning: home with walker #Diet: regular #DVT ppx: SCDs Disp: stable for floor. Inpt admission for IV abx, pain control Subjective: no abdominal pain Objective: Vital Signs Temp Pulse Resp BP Pulse Ox 36.6 C 70 16 152/89 H 94 11/12/18 08:22 11/12/18 08:22 11/12/18 08:22 11/12/18 08:22 11/12/18 08:22 Microbiology 11/09/18 15:35 Gram Stain - Final Peritoneal Fluid - Aspirate Laboratory Results 11/12/18 05:00 11/12/18 05:00 11/11/18 11/12/18 11/13/18 05:59 05:59 05:59 Intake Total 1555 1050 Output Total 735 30 Balance 820 1020 PT 19.2 SEC (12.0-15.0) H 11/10/18 07:35 INR 1.60 (0.83-1.16) H 11/10/18 07:35 - Time Spent With Patient Time Spent with Patient: greater than 35 minutes Time Spent with Patient: Greater than 35 minutes spent on this patients care, greater than 50% of time spent counseling, educating, and coordinating care regarding the above mentioned plan. - Physical Exam Constitutional: no apparent distress Eyes: PERRL Ears, Nose, Mouth, Throat: moist mucous membranes Cardiovascular: regular rate and rhythym Respiratory: no respiratory distress Gastrointestinal: other (JP1 tube with yellow drainage, JP2 with purulence drainage) Genitourinary: no bladder fullness Skin: warm Musculoskeletal: full muscle strength Neurologic: AAOx3, CN II-XII Intact ICD10 Worksheet Patient Problems: Problems Problem Status Onset Sepsis Acute
[2018-11-12] MEDS: FAMOTIDINE 20 MG TAB PO SCH (08:56)
[2018-11-12] MEDS: DEXAMETHASONE 2 MG TAB PO SCH ×2 (08:56→20:17)
[2018-11-12] MEDS: ACETAMINOPHEN 325 MG TAB PO PRN ×2 (11:37→18:20)
--- NOTE | 2018-11-12 15:06 | SOAPPROG ---
SOAP Progress Note Assessment/Plan: Assessment: Rebekah is a 68-year-old female with history of metastatic cholangiocarcinoma admitted for biliary abscess. 1. Intrahepatic abscess: She status post drainage. Culture demonstrates polypmicrobial organisms. Currently on Zosyn. Appreciate Infectious Disease input. 2. Metastatic cholangiocarcinoma: Her chemotherapy will be on hold until her active infectious issues are resolved. 3. Renal failure: Her creatinine is improving. 4. Anemia: Stabilized and improved after transfusion. 11/12/18 15:05 11/12/18 15:06 Subjective: Overall she feels very well today. No n/v. Abdominal pain improved. Objective: Vital Signs Temp Pulse Resp BP Pulse Ox 36.5 C 75 16 155/85 H 95 11/12/18 12:37 11/12/18 12:37 11/12/18 12:37 11/12/18 12:37 11/12/18 12:37 Microbiology 11/09/18 15:35 Gram Stain - Final Peritoneal Fluid - Aspirate Laboratory Results 11/12/18 05:00 11/12/18 05:00 11/11/18 11/12/18 11/13/18 05:59 05:59 05:59 Intake Total 1555 1050 Output Total 735 30 497 Balance 820 1020 -497 PT 19.2 SEC (12.0-15.0) H 11/10/18 07:35 INR 1.60 (0.83-1.16) H 11/10/18 07:35 General: Pleasant-appearing female in no acute HEENT: Oropharynx clear, extraocular movements are intact, pupils equal round react slight Cardiovascular: Regular rhythm Pulmonary: Clear to auscultation Abdomen: 2 right upper quadrant drains in place 1 draining ascities fluid 1 draining serosanguineous fluid Extremities: No cyanosis clubbing or edema Psych: Appropriate at ICD10 Worksheet Patient Problems: Problems Problem Status Onset Sepsis Acute
--- NOTE | 2018-11-12 15:17 | ASMTCMCOM ---
CM Note CM Note Notes: Chart reviewed. Per therapies patient will require HHC services upon discharge. She has known history of cholangiocarcinoma. She is being treated for hepatic abscess CM to follow for needs. Plan: Home with HHC. Date Signed: 11/12/2018 03:06 PM Electronically Signed By:Rebekah Wen RN
--- NOTE | 2018-11-12 15:54 | PCMIDPN ---
Assessment/Plan: Assessment/Plan: * Sepsis due to polymicrobial hepatic abscess status post percutaneous drainage : Culture showing growth of Enterococcus faecalis, Streptococcus anginosus, and Prevotella. Continues to have output via her JAVIER drain of approximately 90 mL over last 24 hr. Will transition Zosyn to Unasyn based on culture findings. Will begin with 3 g IV q.12 hours based on creatinine clearance. Plan to repeat imaging once drain output decreases to approximately 20-30 mL per day. * Leukocytosis: May have been part leukemoid reaction in response to infection after initial normal white blood cell count at time of presentation with severe illness. Continue to follow over time. 11/12/18 15:40 Subjective: Patient complains of some residual abdominal discomfort. Overall feels significantly improved. Objective: Vital Signs Temp Pulse Resp BP Pulse Ox 36.5 C 75 16 155/85 H 95 11/12/18 12:37 11/12/18 12:37 11/12/18 12:37 11/12/18 12:37 11/12/18 12:37 Microbiology 11/09/18 15:35 Gram Stain - Final Peritoneal Fluid - Aspirate Laboratory Results 11/12/18 05:00 11/12/18 05:00 11/11/18 11/12/18 11/13/18 05:59 05:59 05:59 Intake Total 1555 1050 Output Total 735 30 497 Balance 820 1020 -497 Zosyn 2.25 g IV Q 6 # 4 Abscess cultures with growth of Streptococcus anginosus, Enterococcus faecalis, and Prevotella Blood cultures x2 no growth - Physical Exam General Appearance: alert, No no apparent distress EENT: No scleral icterus, No conjunctival petechiae Respiratory: lungs clear, No respiratory distress Cardiac/Chest: regular rate, rhythm Abdomen: distended, other (JAVIER x2 in place with clear ascitic fluid in 1 bulb and minimal drainage present in other JAVIER bulb) Skin: No rash ICD10 Worksheet Patient Problems: Problems Problem Status Onset Sepsis Acute
[2018-11-12] MEDS: AMPICILLIN/SULBACTAM 3 GM in NS 100 ML IV SCH (18:18)
[2018-11-13] MEDS: ACETAMINOPHEN 325 MG TAB PO PRN ×2 (03:16→09:54)
[2018-11-13] MEDS: traMADol 50 MG TAB PO PRN (03:16)
[2018-11-13] MEDS: AMPICILLIN/SULBACTAM 3 GM in NS 100 ML IV SCH ×3 (06:06→21:15)
[2018-11-13] MEDS: DEXAMETHASONE 2 MG TAB PO SCH ×2 (08:14→21:11)
[2018-11-13] MEDS: FAMOTIDINE 20 MG TAB PO SCH (08:15)
[2018-11-13] MEDS: HYDROmorphONE/DILAUDID 1 MG/ML INJ IVP PRN ×3 (10:45→21:14)
--- NOTE | 2018-11-13 14:45 | SOAPPROG ---
SOAP Progress Note Assessment/Plan: Assessment: DOING REASONABLY WELL TODAY/AFEBRILE/COMPLAINS OF SOME INCREASED PAIN LARGE VOLUME ASCITIC DRAIN BUT MINIMAL PURULENT DRAINAGE HEENT NONICTERIC ABDOMEN SOFT WITH POSITIVE BOWEL SOUNDS CHEST CLEAR COR REGULAR RHYTHM Plan: CONTINUE PRESENT THERAPY 11/13/18 14:44 Objective: Vital Signs Temp Pulse Resp BP Pulse Ox 36.4 C 72 15 155/86 H 94 11/13/18 07:58 11/13/18 07:58 11/13/18 07:58 11/13/18 07:58 11/13/18 07:58 Microbiology 11/09/18 15:35 Gram Stain - Final Peritoneal Fluid - Aspirate Laboratory Results 11/13/18 06:00 11/13/18 06:00 11/12/18 11/13/18 11/14/18 05:59 05:59 05:59 Intake Total 1050 1200 Output Total 30 1682 125 Balance 1020 -482 -125 PT 19.2 SEC (12.0-15.0) H 11/10/18 07:35 INR 1.60 (0.83-1.16) H 11/10/18 07:35 ICD10 Worksheet Patient Problems: Problems Problem Status Onset Sepsis Acute
--- NOTE | 2018-11-13 14:46 | HOSPPROG ---
Hospitalist Progress Note Assessment/Plan: #Septic shock with lactic acidosis. Off pressors #Hepatic abscess - Strep and Enterococcus -s/p drainage by IR 11/09 -Re-image once drain output <20cc. If not improving, may need surgical drainage #Leukocytosis: up to 24. Likely stress-reaction to infection. Remains afebrile, bld cx negative #Biliary stents - needs to be exchanged once acute illness resolved. Follows at [facility] #Cholangiocarcinoma: no chemo until recovered from acute illness #UZIEL: multifactorial with hypotension, contrast. Cr down to 1.4 #Normocytic anemia:H/H stable. Last transfused 11/10 #Thrombocytopenia: improved #Hypocalcemia: replete #Deconditioning: home with walker #Diet: regular #DVT ppx: SCDs Plan: Unasyn monitor drain output monitor Cr. Pedal edema noted, will wait until further Cr improvement prior to Lasix Subjective: walking in [place]. still feels weak. no cp or sob. afebrile Objective: Vital Signs Temp Pulse Resp BP Pulse Ox 36.4 C 72 15 155/86 H 94 11/13/18 07:58 11/13/18 07:58 11/13/18 07:58 11/13/18 07:58 11/13/18 07:58 Microbiology 11/09/18 15:35 Gram Stain - Final Peritoneal Fluid - Aspirate Laboratory Results 11/13/18 06:00 11/13/18 06:00 11/12/18 11/13/18 11/14/18 05:59 05:59 05:59 Intake Total 1050 1200 Output Total 30 1682 125 Balance 1020 -482 -125 PT 19.2 SEC (12.0-15.0) H 11/10/18 07:35 INR 1.60 (0.83-1.16) H 11/10/18 07:35 - Physical Exam Constitutional: chronically ill appearing Eyes: PERRL Ears, Nose, Mouth, Throat: moist mucous membranes, hearing normal Cardiovascular: regular rate and rhythym Respiratory: no respiratory distress, no rales or rhonchi, clear to auscultation Gastrointestinal: normoactive bowel sounds, distension Genitourinary: no bladder fullness Skin: warm Neurologic: AAOx3 Psychiatric: interacting appropriately, not anxious, not encephalopathic ICD10 Worksheet Patient Problems: Problems Problem Status Onset Sepsis Acute
--- NOTE | 2018-11-13 15:06 | SOAPPROG ---
SOAP Progress Note Assessment/Plan: E&M for Cholangiocarcinoma * Intrahepatic abscess: Culture demonstrates polypmicrobial organisms. Infectious disease changed antibiotics to Unasyn and she seems to be doing much better. Her white blood count is still high but she is not having a fever although she did not have a fever on admission. She still has a drain in place and shortly she will have a repeat CT scan to make sure the abscess is completely drained. Appreciate Infectious Disease input. * * Metastatic cholangiocarcinoma: Her chemotherapy will be on hold until her active infectious issues are resolved. She was scheduled to receive cycle 14 on 11/08/18. Previously she had been doing well at the treatment although starting to get a small amount of neuropathy and tinnitus. Her tumor marker was just starting to rise but the last PET scan on 09/24 showed things were relatively stable. The plan had been to restage her right after the first of the year. The PET scan had shown a little bit of activity in the area where she ended up having the abscess. Hard to tell if it was residual cancer or the infection. Once the infection is under good control we can repeat her CT scan and compared to the previous PET scan and try to assess her status of disease. If she is progressing then she may need a second line therapy after she completely recovers. * Chemotherapy induced Anemia: Stabilized and improved after transfusion. Subjective: She had some right upper quadrant pain earlier but pain medication resolved. She is otherwise feeling much better since starting antibiotics and having abscess drained. She denies any fevers overnight or chills. She is still feeling generally weak. Objective: Vital Signs Temp Pulse Resp BP Pulse Ox 36.4 C 72 15 155/86 H 94 11/13/18 07:58 11/13/18 07:58 11/13/18 07:58 11/13/18 07:58 11/13/18 07:58 Microbiology 11/09/18 15:35 Gram Stain - Final Peritoneal Fluid - Aspirate Laboratory Results 11/13/18 06:00 11/13/18 06:00 11/12/18 11/13/18 11/14/18 05:59 05:59 05:59 Intake Total 1050 1200 Output Total 30 1682 125 Balance 1020 -482 -125 PT 19.2 SEC (12.0-15.0) H 11/10/18 07:35 INR 1.60 (0.83-1.16) H 11/10/18 07:35 Physical Exam - Physical Exam General Appearance: no apparent distress Respiratory: lungs clear Cardiac/Chest: regular rate, rhythm Abdomen: non-tender, soft, other (drain in place with non-purulent fluid) ICD10 Worksheet Patient Problems: Problems Problem Status Onset Sepsis Acute
--- NOTE | 2018-11-13 15:12 | SOAPPROG ---
RUSS Progress Note Assessment/Plan: Assessment: DOING REASONABLY WELL TODAY/AFEBRILE/COMPLAINS OF SOME INCREASED PAIN LARGE VOLUME ASCITIC DRAIN BUT MINIMAL PURULENT DRAINAGE HEENT NONICTERIC ABDOMEN SOFT WITH POSITIVE BOWEL SOUNDS CHEST CLEAR COR REGULAR RHYTHM Plan: CONTINUE PRESENT THERAPY 11/13/18 14:44 11/13/18 15:11 IMPROVED AFTER PERCUTANEOUS DRAINING WITH DECREASED FEVER/FAIR AMOUNT OF PURULENT MATERIAL REMOVED NONICTERIC/ABDOMEN SOFT/CHEST CLEAR/COR REGULAR RHYTHM HOPEFULLY THAT WILL SUFFICE FOR DRAINAGE OF A PANIC ABSCESS/STILL POSSIBLE SHE MAY NEED LAPAROSCOPIC DRAINAGE Objective: Vital Signs Temp Pulse Resp BP Pulse Ox 36.4 C 72 15 155/86 H 94 11/13/18 07:58 11/13/18 07:58 11/13/18 07:58 11/13/18 07:58 11/13/18 07:58 Microbiology 11/09/18 15:35 Gram Stain - Final Peritoneal Fluid - Aspirate Laboratory Results 11/13/18 06:00 11/13/18 06:00 11/12/18 11/13/18 11/14/18 05:59 05:59 05:59 Intake Total 1050 1200 Output Total 30 1682 125 Balance 1020 -482 -125 PT 19.2 SEC (12.0-15.0) H 11/10/18 07:35 INR 1.60 (0.83-1.16) H 11/10/18 07:35 ICD10 Worksheet Patient Problems: Problems Problem Status Onset Sepsis Acute
--- NOTE | 2018-11-13 15:16 | SOAPPROG ---
RUSS Progress Note Assessment/Plan: Assessment: DOING REASONABLY WELL TODAY/AFEBRILE/COMPLAINS OF SOME INCREASED PAIN LARGE VOLUME ASCITIC DRAIN BUT MINIMAL PURULENT DRAINAGE HEENT NONICTERIC ABDOMEN SOFT WITH POSITIVE BOWEL SOUNDS CHEST CLEAR COR REGULAR RHYTHM Plan: CONTINUE PRESENT THERAPY 11/13/18 14:44 11/13/18 15:11 IMPROVED AFTER PERCUTANEOUS DRAINING WITH DECREASED FEVER/FAIR AMOUNT OF PURULENT MATERIAL REMOVED NONICTERIC/ABDOMEN SOFT/CHEST CLEAR/COR REGULAR RHYTHM HOPEFULLY THAT WILL SUFFICE FOR DRAINAGE OF A PANIC ABSCESS/STILL POSSIBLE SHE MAY NEED LAPAROSCOPIC DRAINAGE 11/13/18 15:13 CONTINUES TO IMPROVE BUT LARGE ASCITES DRAINAGE AND DECREASING PURULENT DRAINAGE AFEBRILE/VITAL SIGNS STABLE NONICTERIC/CHEST CLEAR//ABDOMEN SOFT 11/13/18 15:14 RESTING COMFORTABLY/AFEBRILE/MODERATE THE JAVIER DRAINAGE/ABDOMEN SOFT Objective: Vital Signs Temp Pulse Resp BP Pulse Ox 36.4 C 72 15 155/86 H 94 11/13/18 07:58 11/13/18 07:58 11/13/18 07:58 11/13/18 07:58 11/13/18 07:58 Microbiology 11/09/18 15:35 Gram Stain - Final Peritoneal Fluid - Aspirate Laboratory Results 11/13/18 06:00 11/13/18 06:00 11/12/18 11/13/18 11/14/18 05:59 05:59 05:59 Intake Total 1050 1200 Output Total 30 1682 125 Balance 1020 -482 -125 PT 19.2 SEC (12.0-15.0) H 11/10/18 07:35 INR 1.60 (0.83-1.16) H 11/10/18 07:35 ICD10 Worksheet Patient Problems: Problems Problem Status Onset Sepsis Acute
[2018-11-13] MEDS ORDERED: NS 1,000 ML IV SCH (16:00)
--- NOTE | 2018-11-13 16:25 | PCMIDPN ---
Assessment/Plan: Assessment/Plan: * Sepsis due to polymicrobial hepatic abscess status post percutaneous drainage : Culture showing growth of Enterococcus faecalis, Streptococcus anginosus, and Prevotella. Will increase Unasyn to 3 g IV q.8 hours based on continued improvement in creatinine clearance. Given persistent leukocytosis, limited drainage via JAVIER drain, and worsening right upper quadrant pain, will plan repeat CT scan to assess adequacy of abscess drainage. Will hydrate overnight with hopes creatinine may improve further prior to CT scan with goal of using IV contrast as this will provide for best images. * Leukocytosis: May have been part leukemoid reaction in response to infection after initial normal white blood cell count at time of presentation with severe illness. See above discussion as repeat CT scan will help assess if in part due to residual hepatic abscess. Care coordinated with hospitalist service, nursing staff and Radiology. 11/13/18 16:22 11/13/18 16:25 Subjective: Patient complains of recurrent right upper quadrant pain. Notes limited drain output from abscess drain tube. Continues to have ascitic fluid drainage. Objective: Vital Signs Temp Pulse Resp BP Pulse Ox 36.4 C 72 16 147/88 H 97 11/13/18 15:20 11/13/18 15:20 11/13/18 15:20 11/13/18 15:20 11/13/18 15:20 Microbiology 11/09/18 15:35 Gram Stain - Final Peritoneal Fluid - Aspirate Laboratory Results 11/13/18 06:00 11/13/18 06:00 11/12/18 11/13/18 11/14/18 05:59 05:59 05:59 Intake Total 1050 1200 Output Total 30 1682 495 Balance 1020 -482 -495 Unasyn # 2 Antibiotics # 5 - Physical Exam General Appearance: alert, no apparent distress EENT: No scleral icterus, No conjunctival petechiae Respiratory: lungs clear, No respiratory distress Cardiac/Chest: regular rate, rhythm Abdomen: distended, tender (Right upper quadrant), other (JAVIER localized in abscess with limited output) Skin: No rash - Time Spent With Patient Time Spent with Patient: greater than 35 minutes Time Spent with Patient: Greater than 35 minutes spent on this patients care, greater than 50% of time spent counseling, educating, and coordinating care regarding the above mentioned plan. ICD10 Worksheet Patient Problems: Problems Problem Status Onset Sepsis Acute
[2018-11-14] MEDS: AMPICILLIN/SULBACTAM 3 GM in NS 100 ML IV SCH ×3 (06:34→23:08)
[2018-11-14] MEDS: HYDROmorphONE/DILAUDID 1 MG/ML INJ IVP PRN ×3 (06:48→18:21)
[2018-11-14 07:59] LABS: PLATELET COUNT 61 10^3/uL (150-400)
[2018-11-14] MEDS: FAMOTIDINE 20 MG TAB PO SCH (08:35)
[2018-11-14] MEDS: DEXAMETHASONE 2 MG TAB PO SCH ×2 (08:35→21:05)
[2018-11-14] MEDS: traMADol 50 MG TAB PO PRN (09:17)
[2018-11-14] MEDS ORDERED: IOPAMIDOL (ISOVUE-300) 100 ML BTL ONE (09:35)
--- NOTE | 2018-11-14 11:58 | SOAPPROG ---
SOAP Progress Note Assessment/Plan: E&M for Cholangiocarcinoma * Intrahepatic abscess: Culture demonstrates polypmicrobial organisms. ID following and patient on Unasyn. Abscess better on CT. WBC is higher; ? related to clot. No fever. Surgery following. * Metastatic cholangiocarcinoma: Chemo on hold until her active infectious issues are resolved. Scheduled to receive cycle 14 of cis/gem on 11/08/18. She tolerates it well with mild neuropathy and tinnitus. Once the infection is under good control we can repeat her CT scan and compared to the previous PET scan and try to assess her status of disease. If she is progressing then she may need a second line therapy after she completely recovers. * Chemotherapy induced Anemia: Stabilized and improved after transfusion. 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 Could be related to pain and high wbc * Pain control: Took about 4-5 mg IV dilaudid last 24 hours. Will add low dose MS Contin and try oral dilaudid for breakthrough Subjective: She still having some pain in the right upper quadrant usually controlled with small amounts of Dilaudid. She is eating and has a good appetite. She denies any diarrhea. Objective: Vital Signs Temp Pulse Resp BP Pulse Ox 36.4 C 80 18 168/88 H 97 11/14/18 09:24 11/14/18 09:24 11/14/18 09:24 11/14/18 09:24 11/14/18 09:24 Microbiology 11/09/18 15:35 Gram Stain - Final Peritoneal Fluid - Aspirate 11/08/18 16:00 Blood Culture - Final Blood 11/08/18 15:47 Blood Culture - Final Blood Laboratory Results 11/14/18 06:45 11/14/18 06:45 11/13/18 11/14/18 11/15/18 05:59 05:59 05:59 Intake Total 1200 1798 711 Output Total 1682 870 200 Balance -482 928 511 PT 19.2 SEC (12.0-15.0) H 11/10/18 07:35 INR 1.60 (0.83-1.16) H 11/10/18 07:35 CT Scan of the Abdomen and Pelvis (With Contrast) 0951 hours Impression: 1. Adequate drainage of the subhepatic abscess adjacent to the gallbladder fossa. 2. Findings suspicious for extruded gallstone adjacent to the drainage catheter and separate from the gallbladder. 3. Numerous gallstones present within thickened gallbladder with decrease in fluid pockets around the gallbladder lumen the prior study. 4. Persistent thrombosis of right portal veins with stable hypodensities in the right lobe liver possibly from metastatic disease. 5. Stable wedge-shaped infarcts upper aspect of the spleen. 6. Decrease in ascites with some air bubbles right upper quadrant now seen possibly from drainage catheter in place. 7. Development of small bibasilar pleural effusions with adjacent compressive atelectatic change. 8. Mild decrease in size of hypodense lesion adjacent to the middle hepatic vein that could represent decrease in intrahepatic abscess since the prior study. 9. Diffuse thickening of the gastric wall. Consider gastritis. Findings discussed with Mike Ortiz MD at 10:52 hour, 11/14/2018. Dictated By: Elton Correa MD Physical Exam - Physical Exam General Appearance: no apparent distress Respiratory: decreased breath sounds (bases) Cardiac/Chest: regular rate, rhythm Abdomen: soft, distended, No non-tender (RUQ) ICD10 Worksheet Patient Problems: Problems Problem Status Onset Sepsis Acute
[2018-11-14] MEDS: ENOXAPARIN 30 MG/0.3 ML SYR SC SCH ×2 (12:56→21:05)
[2018-11-14] MEDS: NS 1,000 ML IV SCH (15:11)
--- NOTE | 2018-11-14 16:39 | ASMTCMCOM ---
CM Note CM Note Notes: Patient plan of care reviewed in rounds. She is not as well today. WBC increased in setting of hepatic abscess. Hx of cholangiocarcinoma. Per therapy will need HHC at discharge. CM to follow for needs. Plan: TBD Date Signed: 11/14/2018 04:38 PM Electronically Signed By:Rebekah eWn RN
--- NOTE | 2018-11-14 17:56 | PCMIDPN ---
Assessment/Plan: Assessment/Plan: * Sepsis due to polymicrobial hepatic abscess status post percutaneous drainage : Overall significantly improved from clinical perspective. Has persistent leukocytosis present. Culture showing growth of Enterococcus faecalis, Streptococcus anginosus, and Prevotella. Will increase Unasyn to 3 g IV q.8 hours based on continued improvement in creatinine clearance. CT shows significant decrease in abscess collection sized with question of extruded gallstone within collection. Dr. Cain will review images further regarding this finding. Unclear if additional imaging such as HIDA scan will be of added utility. Given overall improvement expect likely to continue with same management of indwelling drain and IV antibiotic therapy unless leukocytosis fails to improve over time/clinical regression. * Leukocytosis: See above discussion. Time spent, greater than 35 min, which greater than half was spent in education/ counseling/coordination of care including review of CT findings with patient and family. 11/14/18 17:52 Subjective: Patient with residual right upper quadrant pain. Otherwise feeling clinically improved with increasing energy. Objective: Vital Signs Temp Pulse Resp BP Pulse Ox 36.3 C 79 18 148/82 H 96 11/14/18 16:08 11/14/18 16:08 11/14/18 16:08 11/14/18 16:08 11/14/18 16:08 Microbiology 11/09/18 15:35 Gram Stain - Final Peritoneal Fluid - Aspirate 11/08/18 16:00 Blood Culture - Final Blood 11/08/18 15:47 Blood Culture - Final Blood Laboratory Results 11/14/18 06:45 11/14/18 06:45 11/13/18 11/14/18 11/15/18 05:59 05:59 05:59 Intake Total 1200 1798 1611 Output Total 1682 870 200 Balance -462 550 7689 Unasyn # 3 Antibiotics # 5 CT scan showing decreased size of abscess with question of extruded gallstone within fluid collection - Physical Exam General Appearance: alert, no apparent distress EENT: No scleral icterus, No thrush, No conjunctival petechiae Respiratory: lungs clear, No respiratory distress Cardiac/Chest: regular rate, rhythm Extremities: No inflammation Abdomen: distended, tender (Mild right upper quadrant), other (JAVIER with serosanguineous output; no bilious output; other JAVIER with ascitic fluid output) Skin: No rash ICD10 Worksheet Patient Problems: Problems Problem Status Onset Sepsis Acute
--- NOTE | 2018-11-14 17:59 | HOSPPROG ---
Hospitalist Progress Note Assessment/Plan: #Septic shock with lactic acidosis. Off pressors #Hepatic abscess - Strep and Enterococcus -s/p drainage by IR 11/09 #Leukocytosis: up to 24. Likely stress-reaction to infection. Remains afebrile, bld cx negative #Biliary stents - needs to be exchanged once acute illness resolved. Follows at [facility] #Cholangiocarcinoma: no chemo until recovered from acute illness #UZIEL: multifactorial with hypotension, contrast. Cr down to 1.4 #Normocytic anemia:H/H stable. Last transfused 11/10 #Thrombocytopenia: improved #Hypocalcemia: replete #Deconditioning: home with walker #Diet: regular #DVT ppx: SCDs Plan: Unasyn per ID CT Abd/Pelvis shows improvement, will wait for ID and Surgery's interpretation and recommendation. Clinically she reports improvement, but elevated Leukocytosis noted. There is also question of GB pathology. Will order a RUQ US and await surgical recss. Pending US, consider HIDA tomorrow. monitor drain output Cr is improved today and therefore she had CT A/P. She will get another liter of fluid today and recheck Cr tomorrow. Pedal edema noted, will wait until further Cr improvement prior to Lasix Subjective: improvement to abd pain. afebrile. Objective: Vital Signs Temp Pulse Resp BP Pulse Ox 36.3 C 79 18 148/82 H 96 11/14/18 16:08 11/14/18 16:08 11/14/18 16:08 11/14/18 16:08 11/14/18 16:08 Microbiology 11/09/18 15:35 Gram Stain - Final Peritoneal Fluid - Aspirate 11/08/18 16:00 Blood Culture - Final Blood 11/08/18 15:47 Blood Culture - Final Blood Laboratory Results 11/14/18 06:45 11/14/18 06:45 11/13/18 11/14/18 11/15/18 05:59 05:59 05:59 Intake Total 1200 1798 1611 Output Total 1682 870 200 Balance -047 742 1377 PT 19.2 SEC (12.0-15.0) H 11/10/18 07:35 INR 1.60 (0.83-1.16) H 11/10/18 07:35 - Physical Exam Constitutional: no apparent distress, appears nourished Eyes: PERRL, EOMI Ears, Nose, Mouth, Throat: moist mucous membranes, hearing normal Cardiovascular: regular rate and rhythym, No edema Respiratory: no respiratory distress, no rales or rhonchi, clear to auscultation Skin: warm Neurologic: AAOx3 Psychiatric: interacting appropriately, not anxious, not encephalopathic Lymph, Heme, Immunologic: petechiae ICD10 Worksheet Patient Problems: Problems Problem Status Onset Sepsis Acute
[2018-11-14] MEDS: HYDROmorphONE/DILAUDID 4 MG TAB PO PRN (21:05)
[2018-11-14] MEDS: morphINE SR 15 MG TAB PO SCH (21:05)
--- NOTE | 2018-11-15 01:12 | SOAPPROG ---
[facility] Progress Note Assessment/Plan: Assessment: DOING REASONABLY WELL TODAY/AFEBRILE/COMPLAINS OF SOME INCREASED PAIN LARGE VOLUME ASCITIC DRAIN BUT MINIMAL PURULENT DRAINAGE HEENT NONICTERIC ABDOMEN SOFT WITH POSITIVE BOWEL SOUNDS CHEST CLEAR COR REGULAR RHYTHM Plan: CONTINUE PRESENT THERAPY 11/13/18 14:44 11/13/18 15:11 IMPROVED AFTER PERCUTANEOUS DRAINING WITH DECREASED FEVER/FAIR AMOUNT OF PURULENT MATERIAL REMOVED NONICTERIC/ABDOMEN SOFT/CHEST CLEAR/COR REGULAR RHYTHM HOPEFULLY THAT WILL SUFFICE FOR DRAINAGE OF A PANIC ABSCESS/STILL POSSIBLE SHE MAY NEED LAPAROSCOPIC DRAINAGE 11/13/18 15:13 CONTINUES TO IMPROVE BUT LARGE ASCITES DRAINAGE AND DECREASING PURULENT DRAINAGE AFEBRILE/VITAL SIGNS STABLE NONICTERIC/CHEST CLEAR//ABDOMEN SOFT 11/13/18 15:14 RESTING COMFORTABLY/AFEBRILE/MODERATE THE JAVIER DRAINAGE/ABDOMEN SOFT 11/15/18 01:09 IMPROVING BUT WBC 26K/ MINIMAL DRAINAGE FROM ABSCESS FU CT SHOWS GOOD RESOLUTION OF ABSCESS WITH INFLAMED GALLBLADDER OVERALL DOING OK BUT MAY EVENTUALLY NEED CHOLECYSTECTOMY / PRESENTLY SAFER TO WAIT Objective: Vital Signs Temp Pulse Resp BP Pulse Ox 36.8 C 84 16 142/79 H 93 11/14/18 23:20 11/14/18 23:20 11/14/18 23:20 11/14/18 23:20 11/14/18 23:20 Microbiology 11/09/18 15:35 Gram Stain - Final Peritoneal Fluid - Aspirate 11/08/18 16:00 Blood Culture - Final Blood 11/08/18 15:47 Blood Culture - Final Blood Laboratory Results 11/14/18 06:45 11/14/18 06:45 11/13/18 11/14/18 11/15/18 05:59 05:59 05:59 Intake Total 1200 1798 1611 Output Total 1682 870 200 Balance -355 920 0082 PT 19.2 SEC (12.0-15.0) H 11/10/18 07:35 INR 1.60 (0.83-1.16) H 11/10/18 07:35 ICD10 Worksheet Patient Problems: Problems Problem Status Onset Sepsis Acute
[2018-11-15] MEDS: AMPICILLIN/SULBACTAM 3 GM in NS 100 ML IV SCH ×4 (06:09→23:38)
[2018-11-15 06:54] LABS: PLATELET COUNT 53 10^3/uL (150-400)
[2018-11-15] MEDS ORDERED: CALCIUM GLUCONATE 50 ML IV ONE (07:29)
[2018-11-15] MEDS ORDERED: CALCIUM GLUCONATE 1 GM in D5W 50 ML IV ONE (08:00)
[2018-11-15] MEDS: FAMOTIDINE 20 MG TAB PO SCH (09:57)
[2018-11-15] MEDS: morphINE SR 15 MG TAB PO SCH ×2 (09:57→20:29)
[2018-11-15] MEDS: DEXAMETHASONE 2 MG TAB PO SCH ×2 (09:57→20:29)
[2018-11-15] MEDS: ENOXAPARIN 30 MG/0.3 ML SYR SC SCH ×2 (09:58→20:29)
[2018-11-15] MEDS: NS 1,000 ML IV SCH ×2 (09:58→12:56)
[2018-11-15] MEDS: HYDROmorphONE/DILAUDID 4 MG TAB PO PRN ×2 (10:06→16:14)
--- NOTE | 2018-11-15 10:20 | PCMIDPN ---
Assessment/Plan: Assessment: Polymicrobial complex hepatic abscess secondary to cholangitis with underlying cholangiocarcinoma. Patient has a conserve brantley of bacteria including Enterococcus, prevotella and Streptococcus anginosus. Covered well with Unasyn. Will increase to Q 6 hr given further improvement in renal function. Will check with pharmacy on potential for home IV antibiotic dosing with a 24 hr Unasyn preparation. Suspect will need close to 4 weeks of treatment after drainage for best chance of long-term resolution. Plan: 1. Continue IV Unasyn but increased to Q 6 hr. 2. Follow clinical improvement. 11/15/18 10:16 11/15/18 10:17 Subjective: Patient is resting comfortably in her hospital bed. Her son is visiting. She denies any fevers or chills. She does note that she had a relatively pain-free overnight but has had increase in pain in the right upper quadrant this morning. Her drains are continuing to put out thin fluid. Objective: Unasyn # 4 Vital Signs Temp Pulse Resp BP Pulse Ox 36.3 C 74 16 156/80 H 95 11/15/18 07:23 11/15/18 07:23 11/15/18 07:23 11/15/18 07:23 11/15/18 07:23 Microbiology 11/09/18 15:35 Gram Stain - Final Peritoneal Fluid - Aspirate 11/08/18 16:00 Blood Culture - Final Blood 11/08/18 15:47 Blood Culture - Final Blood Laboratory Results 11/15/18 06:30 11/15/18 06:30 11/14/18 11/15/18 11/16/18 05:59 05:59 05:59 Intake Total 1798 1811 1393 Output Total 870 200 375 Balance 928 1611 1018 - Physical Exam General Appearance: WD/WN, alert, no apparent distress, non-toxic Respiratory: lungs clear, normal breath sounds, No respiratory distress Cardiac/Chest: regular rate, rhythm, No tachycardia Extremities: non-tender, swelling, No normal inspection, No erythema Abdomen: soft, distended, No non-tender Skin: normal color, warm/dry, No rash Neuro/Psych: alert, normal mood/affect, oriented x 3 ICD10 Worksheet Patient Problems: Problems Problem Status Onset Sepsis Acute
--- NOTE | 2018-11-15 10:26 | SOAPPROG ---
[facility] Progress Note Assessment/Plan: Assessment/Plan: 68 Y F hx cholangiocarcinoma c carcinomatosis, ascites, liver mets, treated c chemotherapy via port who now presents with abdominal pain and liver abscess. Gallbladder appears to be involved. Could eventually do lap rahul, but would hold off if she is doing well. Could consider getting her home for [place] with drains if home IV abx arranged and other providers comfortable with it. Would follow closely as outpatient. Discussed with Dr. Cain and Dr. Ortiz. She will need biliary stent removal and replacement soon. S: feeling better. O: alert, nad wdwn, mmm, no jaundice ctab anteriorly rrr abd softer, less tender, drains clear 11/15/18 10:22 Objective: Vital Signs Temp Pulse Resp BP Pulse Ox 36.3 C 74 16 156/80 H 95 11/15/18 07:23 11/15/18 07:23 11/15/18 07:23 11/15/18 07:23 11/15/18 07:23 Microbiology 11/09/18 15:35 Gram Stain - Final Peritoneal Fluid - Aspirate 11/08/18 16:00 Blood Culture - Final Blood 11/08/18 15:47 Blood Culture - Final Blood Laboratory Results 11/15/18 06:30 11/15/18 06:30 11/14/18 11/15/18 11/16/18 05:59 05:59 05:59 Intake Total 1798 1811 1393 Output Total 870 200 375 Balance 928 1611 1018 PT 19.2 SEC (12.0-15.0) H 11/10/18 07:35 INR 1.60 (0.83-1.16) H 11/10/18 07:35 ICD10 Worksheet Patient Problems: Problems Problem Status Onset Sepsis Acute
[2018-11-15 13:09] LABS: INR 1.37 (0.83-1.16)
--- NOTE | 2018-11-15 14:42 | SOAPPROG ---
SO[facility] Progress Note Assessment/Plan: Assessment: Intrahepatic abscess: Culture demonstrates polymicrobial organisms. ID following and patient on Unasyn. Abscess better on CT. WBC is coming down a little. * Metastatic cholangiocarcinoma: Chemo on hold until her active infectious issues are resolved. Was scheduled to receive cycle 14 of cis/gem on 11/08/18. She will be on antibiotics for at least 4 weeks. Once the infection is under good control we can repeat her CT scan and compared to the previous PET scan and try to assess her status of disease. If she is progressing then she may need a second line therapy after she completely recovers. * Chemotherapy induced Anemia: Stabilized and improved after transfusion. * Right Portal Vein Clot and Splenic Infarcts: Will continue Lovenox plts are adequate. Could be related to pain and high wbc * Pain control: currently adequate Plan: - Chemo on hold for now - Abx per ID - No txn today - Lovenox Subjective: Pain ok. No new complaints. Objective: Vital Signs Temp Pulse Resp BP Pulse Ox 36.5 C 82 16 149/70 H 96 11/15/18 13:21 11/15/18 13:21 11/15/18 13:21 11/15/18 13:21 11/15/18 13:21 Microbiology 11/09/18 15:35 Gram Stain - Final Peritoneal Fluid - Aspirate 11/08/18 16:00 Blood Culture - Final Blood 11/08/18 15:47 Blood Culture - Final Blood Laboratory Results 11/15/18 06:30 11/15/18 06:30 11/13/18 11/14/18 11/15/18 23:59 23:59 23:59 Intake Total 1698 1911 1593 Output Total 1240 450 500 Balance 458 1461 1093 PT 17.0 SEC (12.0-15.0) H 11/15/18 12:50 INR 1.37 (0.83-1.16) H 11/15/18 12:50 Physical Exam - Physical Exam General Appearance: alert, no apparent distress Respiratory: lungs clear Cardiac/Chest: regular rate, rhythm Abdomen: normal bowel sounds, other (drains are producing clear yellow drainage. ) Skin: pallor Neuro/Psych: normal mood/affect, oriented x 3 ICD10 Worksheet Patient Problems: Problems Problem Status Onset Sepsis Acute
--- NOTE | 2018-11-15 18:12 | HOSPPROG ---
Hospitalist Progress Note Assessment/Plan: The patient is a 68-year-old female with PMH metastatic cholangiocarcinoma who was admitted for septic shock secondary to hepatic abscess. This patient is new to me. Reviewed patient's chart/records for this visit. 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 -Restrict fluids now. Lasix 40mg in AM. -Check AM labs. -Continue IV abx - Unasyn since 11/12, per ID. Previously Zosyn 11/08-11/12. -add ISU. -PT/OT. -Needs to have biliary stent changed as outpt. VTE prophylaxis: Lovenox - adjust for improved renal function tomorrow if GFR is stable or improved. Code Status: DNR Status: Inpatient for greater than 2 midnight stay. Disposition: Med surg ____ SUBJECTIVE: Today the patient feels a little better. She still feels generally weak. She complains of feeling swollen all over. Pain is controlled. OBJECTIVE: Physical Exam: General: The patient is a female who is alert and in no acute distress. HEENT: normocephalic, extraocular movements intact, conjunctivae clear. Mucous membranes moist. Neck: trachea midline, no visible masses. Resp: unlabored. Abd: soft and mildly distended. Right-sided drains in place draining fluid. Musculoskeletal: Normal muscle tone/bulk. Neuro: cranial nerves II XII grossly intact. Intact gross motor and sensory function. Psych: Appropriate mood and appropriate affect. Skin: + pallor. No petechiae. Heme/lymph: +2 pitting peripheral edema at bilateral lower legs and hands. Labs/Imaging/Other Tests: Personally reviewed/interpreted. CT abd/pelv: Impression: 1. Adequate drainage of the subhepatic abscess adjacent to the gallbladder fossa. 2. Findings suspicious for extruded gallstone adjacent to the drainage catheter and separate from the gallbladder. 3. Numerous gallstones present within thickened gallbladder with decrease in fluid pockets around the gallbladder lumen the prior study. 4. Persistent thrombosis of right portal veins with stable hypodensities in the right lobe liver possibly from metastatic disease. 5. Stable wedge-shaped infarcts upper aspect of the spleen. 6. Decrease in ascites with some air bubbles right upper quadrant now seen possibly from drainage catheter in place. 7. Development of small bibasilar pleural effusions with adjacent compressive atelectatic change. 8. Mild decrease in size of hypodense lesion adjacent to the middle hepatic vein that could represent decrease in intrahepatic abscess since the prior study. 9. Diffuse thickening of the gastric wall. Consider gastritis. Objective: Vital Signs Temp Pulse Resp BP Pulse Ox 36.4 C 79 16 163/79 H 96 11/15/18 16:00 11/15/18 16:00 11/15/18 16:00 11/15/18 16:00 11/15/18 16:00 Microbiology 11/09/18 15:35 Gram Stain - Final Peritoneal Fluid - Aspirate Laboratory Results 11/15/18 06:30 11/15/18 06:30 11/14/18 11/15/18 11/16/18 05:59 05:59 05:59 Intake Total 1798 1811 2517 Output Total 870 200 500 Balance 928 1611 2016 PT 17.0 SEC (12.0-15.0) H 11/15/18 12:50 INR 1.37 (0.83-1.16) H 11/15/18 12:50 - Time Spent With Patient Time Spent with Patient: greater than 35 minutes Time Spent with Patient: Greater than 35 minutes spent on this patients care, greater than 50% of time spent counseling, educating, and coordinating care regarding the above mentioned plan. ICD10 Worksheet Patient Problems: Problems Problem Status Onset Sepsis Acute
[2018-11-16] MEDS: HYDROmorphONE/DILAUDID 4 MG TAB PO PRN ×2 (01:03→06:28)
[2018-11-16] MEDS ORDERED: FUROSEMIDE 40 MG/4 ML VIAL IVP ONE (06:00)
[2018-11-16] MEDS: AMPICILLIN/SULBACTAM 3 GM in NS 100 ML IV SCH ×3 (06:02→18:18)
[2018-11-16 08:35] LABS: PLATELET COUNT 50 10^3/uL (150-400)
[2018-11-16] MEDS: DEXAMETHASONE 2 MG TAB PO SCH ×2 (08:53→22:24)
[2018-11-16] MEDS: morphINE SR 15 MG TAB PO SCH ×2 (08:53→22:24)
[2018-11-16] MEDS: FAMOTIDINE 20 MG TAB PO SCH (08:53)
[2018-11-16] MEDS: ENOXAPARIN 30 MG/0.3 ML SYR SC SCH ×2 (08:54→22:21)
[2018-11-16] MEDS ORDERED: MAGNESIUM SULF 2 GM/WATER 50 ML IV ONE (09:48)
--- NOTE | 2018-11-16 10:21 | PCMIDPN ---
Assessment/Plan: Assessment: Polymicrobial complex hepatic abscess secondary to cholangitis with underlying cholangiocarcinoma. Patient has a consortium of bacteria including Enterococcus , prevotella and Streptococcus anginosus. Covered well with Unasyn. Will increase to Q 6 hr given further improvement in renal function. Continuing to work with pharmacy on potential for home IV antibiotic dosing with a 24 hr Unasyn preparation. Suspect will need close to 4 weeks of treatment after drainage for best chance of long-term resolution. Plan: 1. Continue IV Unasyn . Suspect patient will need a 4 week course for complete treatment. 2. Encourage ambulation and strength improvement. Subjective: Patient is resting in her hospital bed. She has breakfast in front of her and is feeling somewhat hungry for it. She feels improved and denies any abdominal pain. The discharge from her abdominal drains is stable from yesterday. No fevers or chills. Objective: Unasyn # 5 Vital Signs Temp Pulse Resp BP Pulse Ox 36.6 C 68 15 143/78 H 94 11/16/18 07:25 11/16/18 07:25 11/16/18 07:25 11/16/18 07:25 11/16/18 07:25 Microbiology 11/09/18 15:35 Gram Stain - Final Peritoneal Fluid - Aspirate Laboratory Results 11/16/18 06:20 11/16/18 06:20 11/15/18 11/16/18 11/17/18 05:59 05:59 05:59 Intake Total 1811 3019 Output Total 200 690 10 Balance 1611 2329 -10 - Physical Exam General Appearance: WD/WN, alert, no apparent distress, non-toxic Respiratory: lungs clear, normal breath sounds, No respiratory distress Cardiac/Chest: regular rate, rhythm, No tachycardia Abdomen: non-tender, soft, distended, other (Drains in place) Skin: normal color, warm/dry, No rash Neuro/Psych: alert, normal mood/affect, oriented x 3 ICD10 Worksheet Patient Problems: Problems Problem Status Onset Sepsis Acute
[2018-11-16] MEDS: ACETAMINOPHEN 325 MG TAB PO PRN ×2 (10:45→15:59)
--- NOTE | 2018-11-16 10:46 | SOAPPROG ---
SO[facility] Progress Note Assessment/Plan: Assessment: 1. cholangiocarcinoma 2. liver abscess Plan: - abx per ID - hold further chemo (cis-gem) until infection resolved. 11/16/18 10:45 Subjective: feels well. some abd discomfort RUQ occasionally. Objective: exam NAD Lungs CTAB CV RRR no MGR Abd: +BS NT ND. 2 JAVIER drains with serous fluid Ext: no edema Neuro: a+ox3. Vital Signs Temp Pulse Resp BP Pulse Ox 36.6 C 68 15 143/78 H 94 11/16/18 07:25 11/16/18 07:25 11/16/18 07:25 11/16/18 07:25 11/16/18 07:25 Microbiology 11/09/18 15:35 Gram Stain - Final Peritoneal Fluid - Aspirate Laboratory Results 11/16/18 06:20 11/16/18 06:20 11/15/18 11/16/18 11/17/18 05:59 05:59 05:59 Intake Total 1811 3019 Output Total 200 690 10 Balance 1611 2329 -10 PT 17.0 SEC (12.0-15.0) H 11/15/18 12:50 INR 1.37 (0.83-1.16) H 11/15/18 12:50 ICD10 Worksheet Patient Problems: Problems Problem Status Onset Sepsis Acute
--- NOTE | 2018-11-16 13:33 | HOSPPROG ---
Hospitalist Progress Note Assessment/Plan: The patient is a 68-year-old female with PMH metastatic cholangiocarcinoma who was admitted for septic shock secondary to hepatic abscess. 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 Deconditioning Cholelithiasis Bilat pleural effusions, small Bilat atelectasis -ID, Gen Surg, Onc recs appreciated. -Replete magnesium. -Check AM labs. If renal function is stable, give another dose of Lasix in AM. -Continue IV Abx - Unasyn since 11/12, per ID. Previously Zosyn 11/08-11/12. -ISU/PT/OT. -Needs to have biliary stent changed as outpt. -Add bowel protocol since pt is taking narcotic pain meds. VTE prophylaxis: Lovenox - adjust for improved renal function tomorrow if GFR is stable or improved. Code Status: DNR Status: Inpatient for greater than 2 midnight stay. Disposition: Med surg ____ SUBJECTIVE: Today the patient feels a little better. She still feels generally weak. Pain is controlled. Eating ok, no problems going to bathroom. OBJECTIVE: Physical Exam: General: The patient is a female who is alert and in no acute distress. HEENT: normocephalic, extraocular movements intact, conjunctivae clear. Mucous membranes moist. Neck: trachea midline, no visible masses. Resp: unlabored. Abd: soft and mildly distended. Right-sided drains in place draining fluid. Musculoskeletal: Normal muscle tone/bulk. Neuro: cranial nerves II XII grossly intact. Intact gross motor and sensory function. Psych: Appropriate mood and appropriate affect. Skin: + pallor. No petechiae. Heme/lymph: +2 pitting peripheral edema at bilateral lower legs and hands. Labs/Imaging/Other Tests: Personally reviewed/interpreted. CT abd/pelv: Impression: 1. Adequate drainage of the subhepatic abscess adjacent to the gallbladder fossa. 2. Findings suspicious for extruded gallstone adjacent to the drainage catheter and separate from the gallbladder. 3. Numerous gallstones present within thickened gallbladder with decrease in fluid pockets around the gallbladder lumen the prior study. 4. Persistent thrombosis of right portal veins with stable hypodensities in the right lobe liver possibly from metastatic disease. 5. Stable wedge-shaped infarcts upper aspect of the spleen. 6. Decrease in ascites with some air bubbles right upper quadrant now seen possibly from drainage catheter in place. 7. Development of small bibasilar pleural effusions with adjacent compressive atelectatic change. 8. Mild decrease in size of hypodense lesion adjacent to the middle hepatic vein that could represent decrease in intrahepatic abscess since the prior study. 9. Diffuse thickening of the gastric wall. Consider gastritis. Objective: Vital Signs Temp Pulse Resp BP Pulse Ox 36.6 C 68 15 143/78 H 94 11/16/18 07:25 11/16/18 07:25 11/16/18 07:25 11/16/18 07:25 11/16/18 07:25 Microbiology 11/09/18 15:35 Gram Stain - Final Peritoneal Fluid - Aspirate Laboratory Results 11/16/18 06:20 11/16/18 06:20 11/15/18 11/16/18 11/17/18 05:59 05:59 05:59 Intake Total 1811 3019 Output Total 200 690 10 Balance 1611 2329 -10 PT 17.0 SEC (12.0-15.0) H 11/15/18 12:50 INR 1.37 (0.83-1.16) H 11/15/18 12:50 ICD10 Worksheet Patient Problems: Problems Problem Status Onset Sepsis Acute
[2018-11-16] MEDS ORDERED: BISACODYL 10 MG SUPP PR PRN (13:37)
[2018-11-16] MEDS ORDERED: POLYETHYLENE GLYCOL 3350 17 GM PKT PO PRN (13:37)
[2018-11-16] MEDS ORDERED: LACTULOSE 20 GM/30 ML UDCUP PO PRN (13:37)
[2018-11-16] MEDS ORDERED: MAGNESIUM HYDROXIDE 30 ML UDCUP PO PRN (13:37)
--- NOTE | 2018-11-16 17:44 | SOAPPROG ---
[facility] Progress Note Assessment/Plan: Assessment: DOING REASONABLY WELL TODAY/AFEBRILE/COMPLAINS OF SOME INCREASED PAIN LARGE VOLUME ASCITIC DRAIN BUT MINIMAL PURULENT DRAINAGE HEENT NONICTERIC ABDOMEN SOFT WITH POSITIVE BOWEL SOUNDS CHEST CLEAR COR REGULAR RHYTHM Plan: CONTINUE PRESENT THERAPY 11/13/18 14:44 11/13/18 15:11 IMPROVED AFTER PERCUTANEOUS DRAINING WITH DECREASED FEVER/FAIR AMOUNT OF PURULENT MATERIAL REMOVED NONICTERIC/ABDOMEN SOFT/CHEST CLEAR/COR REGULAR RHYTHM HOPEFULLY THAT WILL SUFFICE FOR DRAINAGE OF A PANIC ABSCESS/STILL POSSIBLE SHE MAY NEED LAPAROSCOPIC DRAINAGE 11/13/18 15:13 CONTINUES TO IMPROVE BUT LARGE ASCITES DRAINAGE AND DECREASING PURULENT DRAINAGE AFEBRILE/VITAL SIGNS STABLE NONICTERIC/CHEST CLEAR//ABDOMEN SOFT 11/13/18 15:14 RESTING COMFORTABLY/AFEBRILE/MODERATE THE JAVIER DRAINAGE/ABDOMEN SOFT 11/15/18 01:09 IMPROVING BUT WBC 26K/ MINIMAL DRAINAGE FROM ABSCESS FU CT SHOWS GOOD RESOLUTION OF ABSCESS WITH INFLAMED GALLBLADDER OVERALL DOING OK BUT MAY EVENTUALLY NEED CHOLECYSTECTOMY / PRESENTLY SAFER TO WAIT 11/16/18 17:41 still AFEBRILE AND COMFORTABLE/ SMALL AMOUNT OF DRAINAGE PERSISTS/ ABD SOFT/ CHEST CLEAR/ COR RR PROBABLY HOME SOON WITH DRAINS IN PLACE/ INTERVAL CHOLECYSTECTOMY IF APPROPRIATE/ RISKS AND OPTIONS FULLY DISCUSSED Objective: Vital Signs Temp Pulse Resp BP Pulse Ox 36.4 C 73 16 155/82 H 90 L 11/16/18 15:31 11/16/18 15:31 11/16/18 15:31 11/16/18 15:31 11/16/18 15:31 Microbiology 11/09/18 15:35 Gram Stain - Final Peritoneal Fluid - Aspirate Anaerobic Culture - Final Enterococcus Faecalis Prevotella Buccae Streptococcus Anginosus Group Laboratory Results 11/16/18 06:20 11/16/18 06:20 11/15/18 11/16/18 11/17/18 05:59 05:59 05:59 Intake Total 1811 3019 Output Total 200 690 10 Balance 1611 2329 -10 PT 17.0 SEC (12.0-15.0) H 11/15/18 12:50 INR 1.37 (0.83-1.16) H 11/15/18 12:50 ICD10 Worksheet Patient Problems: Problems Problem Status Onset Sepsis Acute
[2018-11-16] MEDS: SENNOSIDES/DOCUSATE SODIUM TAB PO SCH (22:23)
[2018-11-17] MEDS: AMPICILLIN/SULBACTAM 3 GM in NS 100 ML IV SCH ×4 (00:22→18:34)
[2018-11-17] MEDS: ACETAMINOPHEN 325 MG TAB PO PRN ×2 (05:19→18:45)
[2018-11-17] MEDS: HYDROmorphONE/DILAUDID 4 MG TAB PO PRN (06:35)
[2018-11-17 07:01] LABS: PLATELET COUNT 52 10^3/uL (150-400)
[2018-11-17] MEDS ORDERED: CALCIUM GLUCONATE 50 ML IV ONE (07:21)
[2018-11-17] MEDS ORDERED: CALCIUM GLUCONATE 1 GM in D5W 50 ML IV ONE (08:00)
[2018-11-17] MEDS: FAMOTIDINE 20 MG TAB PO SCH (08:42)
[2018-11-17] MEDS: morphINE SR 15 MG TAB PO SCH ×2 (08:43→21:26)
[2018-11-17] MEDS: ENOXAPARIN 30 MG/0.3 ML SYR SC SCH (08:43)
[2018-11-17] MEDS: DEXAMETHASONE 2 MG TAB PO SCH ×2 (08:43→21:26)
[2018-11-17] MEDS: SENNOSIDES/DOCUSATE SODIUM TAB PO SCH ×2 (08:44→21:26)
--- NOTE | 2018-11-17 12:52 | SOAPPROG ---
SOAP Progress Note Assessment/Plan: Assessment: Intrahepatic abscess: Culture demonstrates polymicrobial organisms. ID following and patient on Unasyn. Abscess better on CT. WBC is coming down a little. * Metastatic cholangiocarcinoma: Chemo on hold until her active infectious issues are resolved. Was scheduled to receive cycle 14 of cis/gem on 11/08/18. She will be on antibiotics for at least 4 weeks. Once the infection is under good control we can repeat her CT scan and compared to the previous PET scan and try to assess her status of disease. If she is progressing then she may need a second line therapy after she completely recovers. She is draining mostly ascites at this time. * Chemotherapy induced Anemia: Stabilized and improved after transfusion. * Right Portal Vein Clot and Splenic Infarcts: Will continue Lovenox plts are adequate. Could be related to pain and high wbc * Pain control: She is happy with the short acting/long acting regimen Plan: - Chemo on hold for now - Abx per ID - No txn today - Lovenox Subjective: No complaints. Pain adequately controlled. Objective: Vital Signs Temp Pulse Resp BP Pulse Ox 36.6 C 75 18 146/78 H 94 11/17/18 08:13 11/17/18 08:13 11/17/18 08:13 11/17/18 08:13 11/17/18 08:13 Microbiology 11/09/18 15:35 Gram Stain - Final Peritoneal Fluid - Aspirate Anaerobic Culture - Final Enterococcus Faecalis Prevotella Buccae Streptococcus Anginosus Group Laboratory Results 11/17/18 05:30 11/17/18 05:30 11/15/18 11/16/18 11/17/18 23:59 23:59 23:59 Intake Total 2919 580 50 Output Total 500 400 360 Balance 2419 180 -310 PT 17.0 SEC (12.0-15.0) H 11/15/18 12:50 INR 1.37 (0.83-1.16) H 11/15/18 12:50 Physical Exam - Physical Exam General Appearance: alert Respiratory: lungs clear, normal breath sounds Cardiac/Chest: regular rate, rhythm, edema (2+LE bilat) Abdomen: normal bowel sounds, non-tender, soft Neuro/Psych: alert, normal mood/affect, oriented x 3 ICD10 Worksheet Patient Problems: Problems Problem Status Onset Sepsis Acute
[2018-11-17] MEDS ORDERED: POTASSIUM CL 20 MEQ/15 ML UDCUP PO SCH (15:30)
--- NOTE | 2018-11-17 15:36 | HOSPPROG ---
Hospitalist Progress Note Assessment/Plan: The patient is a 68-year-old female with PMH metastatic cholangiocarcinoma who was admitted for septic shock secondary to hepatic abscess. 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 Deconditioning Cholelithiasis Bilat pleural effusions, small Bilat atelectasis -ID, Gen Surg, Onc recs appreciated. I have discussed the case with them (see recs in Dispo). -Check AM labs. -Continue IV Abx - Unasyn since 11/12, per ID. Previously Zosyn 11/08-11/12. -ISU/PT/OT. -Needs to have biliary stent changed as outpt. -Check ascites fluid cytology. -Give daily Lasix 40mg to help w/ edema. -Replete potassium. -Recommend that pt try compression stockings or daily leg wrapping and elevating legs x 15 minutes, when she goes home. VTE prophylaxis: Lovenox - adjust for improved renal function tomorrow if GFR is stable or improved. Code Status: DNR Status: Inpatient for greater than 2 midnight stay. Disposition: Med surg -- starting DC planning for home IV antibiotics. DC to home w/ drains, per Gen Surg. DC on Zosyn (easier to dose), per ID, for 4 weeks Abx total. To await for infection to resolve prior to cholecystectomy or resuming chemo. ____ SUBJECTIVE: Today the patient feels a little better. She still feels generally weak. Pain is controlled. Eating ok, no problems going to bathroom. OBJECTIVE: Physical Exam: General: The patient is a female who is alert and in no acute distress. HEENT: normocephalic, extraocular movements intact, conjunctivae clear. Mucous membranes moist. Neck: trachea midline, no visible masses. CV: +S1/S2, RRR, no MRG. Resp: unlabored, CTAB no RRW. Abd: soft and mildly distended. Right-sided drains in place draining small amount of fluid. Musculoskeletal: Normal muscle tone/bulk. Normal gait. Neuro: cranial nerves II XII grossly intact. Intact gross motor and sensory function. Psych: Appropriate mood and appropriate affect. Skin: + pallor. No petechiae. Heme/lymph: +2-3 pitting peripheral edema at bilateral lower legs and hands. Labs/Imaging/Other Tests: Personally reviewed/interpreted. CT abd/pelv: Impression: 1. Adequate drainage of the subhepatic abscess adjacent to the gallbladder fossa. 2. Findings suspicious for extruded gallstone adjacent to the drainage catheter and separate from the gallbladder. 3. Numerous gallstones present within thickened gallbladder with decrease in fluid pockets around the gallbladder lumen the prior study. 4. Persistent thrombosis of right portal veins with stable hypodensities in the right lobe liver possibly from metastatic disease. 5. Stable wedge-shaped infarcts upper aspect of the spleen. 6. Decrease in ascites with some air bubbles right upper quadrant now seen possibly from drainage catheter in place. 7. Development of small bibasilar pleural effusions with adjacent compressive atelectatic change. 8. Mild decrease in size of hypodense lesion adjacent to the middle hepatic vein that could represent decrease in intrahepatic abscess since the prior study. 9. Diffuse thickening of the gastric wall. Consider gastritis. Objective: Vital Signs Temp Pulse Resp BP Pulse Ox 36.6 C 75 18 146/78 H 94 11/17/18 08:13 11/17/18 08:13 11/17/18 08:13 11/17/18 08:13 11/17/18 08:13 Microbiology 11/09/18 15:35 Gram Stain - Final Peritoneal Fluid - Aspirate Anaerobic Culture - Final Enterococcus Faecalis Prevotella Buccae Streptococcus Anginosus Group Laboratory Results 11/17/18 05:30 11/17/18 05:30 11/16/18 11/17/18 11/18/18 05:59 05:59 05:59 Intake Total 3019 280 50 Output Total 690 420 283 Balance 2329 -140 -233 PT 17.0 SEC (12.0-15.0) H 11/15/18 12:50 INR 1.37 (0.83-1.16) H 11/15/18 12:50 - Time Spent With Patient Time Spent with Patient: greater than 35 minutes Time Spent with Patient: Greater than 35 minutes spent on this patients care, greater than 50% of time spent counseling, educating, and coordinating care regarding the above mentioned plan. ICD10 Worksheet Patient Problems: Problems Problem Status Onset Sepsis Acute
[2018-11-17] MEDS: FUROSEMIDE 20 MG/2 ML VIAL IVP SCH (16:45)
--- NOTE | 2018-11-17 16:46 | ASMTCMCOM ---
CM Note CM Note Notes: Per ID patient likely able to go home on antibiotics. Still has hepatic drain. Will need HHC for port access and care and drain care as well as PT and OT. Referrals placed in allscripts for Home infusion and HHC. Kay Hernández from [facility] meeting with family this pm. CM to follow. Plan: Dc to home with [facility]. Date Signed: 11/17/2018 04:46 PM Electronically Signed By:Rebekah Wen RN
--- NOTE | 2018-11-17 16:50 | PCMIDPN ---
Assessment/Plan: Assessment/Plan: * Sepsis due to polymicrobial hepatic abscess status post percutaneous drainage : Continued improvement clinically with antibiotic therapy and post drainage. Anticipate 4 weeks of IV antibiotic therapy. Outpatient treatment options would include Zosyn 13.5 g IV by continuous infusion versus 4.5 g IV q.12 hours (favor continuous infusion) as Unasyn options limited for continuous infusion in Q 6 hr dosing cumbersome. Will need repeat imaging over time to fully define duration of antibiotic therapy. Reviewed surgery notes with plans for drains to remain in place and observe gallbladder in interim. * Leukocytosis: Continue to follow with anticipation will slowly improve over time. 11/17/18 16:50 Subjective: Overall patient feels improved with some residual right upper quadrant pain. Objective: Vital Signs Temp Pulse Resp BP Pulse Ox 36.4 C 73 18 144/106 H 95 11/17/18 15:59 11/17/18 15:59 11/17/18 15:59 11/17/18 15:59 11/17/18 15:59 Microbiology 11/09/18 15:35 Gram Stain - Final Peritoneal Fluid - Aspirate Anaerobic Culture - Final Enterococcus Faecalis Prevotella Buccae Streptococcus Anginosus Group Laboratory Results 11/17/18 05:30 11/17/18 05:30 11/16/18 11/17/18 11/18/18 05:59 05:59 05:59 Intake Total 3019 280 50 Output Total 690 420 283 Balance 2329 -140 -233 Unasyn 3 g IV Q 6 # 6, antibiotics # 8 - Physical Exam General Appearance: alert, no apparent distress EENT: No scleral icterus, No conjunctival petechiae Cardiac/Chest: regular rate, rhythm, other (Port in left upper chest nontender without erythema) Extremities: pedal edema Abdomen: distended, tender (Right upper quadrant, mild), other (JAVIER x1 with small amount of dark serosanguineous output; other with yellow ascitic fluid) - Line/s RUE PICC Lines: No drainage, No erythema - Time Spent With Patient Time Spent with Patient: greater than 25 minutes Time Spent with Patient: Greater than 25 minutes spent on this patients care, greater than 50% of time spent counseling, educating, and coordinating care regarding the above mentioned plan. ICD10 Worksheet Patient Problems: Problems Problem Status Onset Sepsis Acute
--- NOTE | 2018-11-17 16:56 | PDIAF ---
- Diagnosis Diagnosis: Hepatic abscess Code Status: Do Not Resuscitate - Medication Management Assisted Antibiotics: Zosyn 13.5 g IV Q 24 hr by continuous infusion Assisted Antibiotic Stop Date: 12/08/18 Discharge Medications: electronically signed and located in the Home Medication List. PICC Care - Routine: Yes - Orders Services needed: Home Half-Way Care Face to Face: I certify that this patient was under my care and that I had the required [id number] encounter meeting the encounter requirements on the discharge day. My findings support the fact that the patient is homebound as defined in Home Care Face to Face Continued: CMS Chapter 7 Medicare Benefits Manual 30.1.1 , The condition of the patient is such that there exists a normal inability to leave home and consequently, leaving home would require a considerable and taxing effort. Additional Instructions: You will need to take care of your drains as you've been taught. Avoid strenuous activity. - Labs/Radiology CBC w/diff Date: 11/22/18 (Weekly Q Thursday) CMP Date: 11/22/18 (Weekly Q Thursday) Call or Fax Lab and Imaging Results to: Dr. Ortiz, - Follow Up Care Current Providers and Referrals: Shadi Cain MD [Medical Doctor] - Patient,NotPresent [Primary Care Provider] -
[2018-11-17] MEDS ORDERED: POTASSIUM CL 20 MEQ TAB PO SCH (17:30)
[2018-11-17] MEDS: POTASSIUM CL 20 MEQ TAB PO SCH ×2 (18:34→19:43)
[2018-11-17] MEDS: ENOXAPARIN 60 MG/0.6 ML SYR SC SCH (21:24)
[2018-11-18] MEDS: AMPICILLIN/SULBACTAM 3 GM in NS 100 ML IV SCH ×3 (00:20→12:35)
[2018-11-18 08:02] VITALS: BP 154/74
[2018-11-18] MEDS: ACETAMINOPHEN 325 MG TAB PO PRN (08:09)
[2018-11-18] MEDS: morphINE SR 15 MG TAB PO SCH (08:10)
[2018-11-18] MEDS: FAMOTIDINE 20 MG TAB PO SCH (08:10)
[2018-11-18] MEDS: SENNOSIDES/DOCUSATE SODIUM TAB PO SCH (08:10)
[2018-11-18] MEDS: DEXAMETHASONE 2 MG TAB PO SCH (08:10)
[2018-11-18] MEDS: ENOXAPARIN 60 MG/0.6 ML SYR SC SCH (08:11)
[2018-11-18] MEDS: FUROSEMIDE 20 MG/2 ML VIAL IVP SCH (08:11)
--- NOTE | 2018-11-18 08:43 | PDPCPN ---
Palliative Care Progress Note Assessment/Plan: Assessment: [facility] [address] [place] [id number] (O) [phone](F) PALLIATIVE CARE NOTE NAME:Rebekah Ayala : 52 VISIT TYPE: Initial LOCATION: [facility] LEVEL OF CARE: Hospice eligible DIAGNOSES: 1. Cholangiocarcinoma 2. Hepatic abscess CC: Initial palliative hospital visit HPI: Ms. Ayala is a 68-year-old female with a history of cholangiocarcinoma diagnosed in January 2018. She has been receiving cisplatin and gemcitabine chemotherapy. For the most part she has been tolerating this fairly well however has experienced nausea and fairly significant fatigue. She began experiencing increasing abdominal pain with some abdominal bloating. She was admitted to the inpatient setting and CT scan indicates a hepatic abscess. She has [address] with decreasing drainage. She continues on IV antibiotics at this time. She will likely be discharged with the drains as well as continued IV antibiotics at home. She states that her symptoms are well -controlled at this time. PMH: As above ALLERGIES: NKDA FAMILY HISTORY: Mother with a history of lung cancer SOCIAL HISTORY: She lives independently and has 3 children. PATIENT GOALS OF CARE: 1. Symptom management including pain and nausea 2. Return home and live independently. 3. Continue treatment. 4. Spend time with her children and grandchildren ACTIVE SYMPTOMS/ASSESSMENTS/RECOMMENDATIONS: 1. Cholangiocarcinoma C 22.1: Metastatic disease. Has been receiving cisplatin and gemcitabine which is on hold at this time due to hepatic abscess. MODIFIED [place] SYMPTOM ASSESSMENT SCALE: 0-none; 1-3 mild; 4-6 moderate; 7-10 severe Unable to Respond: No [ ] Delirium: 0-none Depression: 0-none Anxiety: 0none Tiredness (fatigue): 5-Mod Drowsiness (sleepiness): 0-none Pain: 1 Nausea: 2 Anorexia: 0-none Shortness of Breath: 0-none Secretions: 0-none Constipation: 0-none Symptom and side effect management: (acceptable to patient and family) RISK FACTORS FOR RE-HOSPITALIZATION: o LIVES ALONE o CAREGIVER ANXIETY o >2 HOSPITALIZATIONS IN PAST 12 MONTHS o DISEASE EDUCATION DEFICIT OBJECTIVE FINDINGS Palliative Performance Score: 80 FAST: Not applicable NYHA: n/a Vital Signs: Wt: MAC: Neuro: A&O to person, place, time and event HEENT: Normocephalic; atraumatic RESP: Regular, deep, symmetrical. No cough or wheezing CV: no LE edema GI: soft, round. [address] : no dysuria or hematuria MSK: Well nourished. Ambulatory SKIN: intact LAB Data: N/A Disposition: example- living safely and comfortably at home ADVANCE CARE PLANNING DISCUSSION MOST Form: DNR PLAN: 1. BUILDING ECONOMIST visit schedule Upon discharge for community palliative care support. 2. Palliative Supportive Service referrals for SW to be made upon discharge to home Thank you for the opportunity to participate in the care of this patient. TIME SPENT: 12: 70 min >50% of the time spent counseling, educating and coordinating the above topics. Umesh Bolton ANP Plan: 11/18/18 08:43 Objective: Vital Signs Temp Pulse Resp BP Pulse Ox 36.6 C 71 16 154/74 H 91 L 11/18/18 07:57 11/18/18 07:57 11/18/18 07:57 11/18/18 07:57 11/18/18 07:57 Laboratory Results 11/17/18 05:30 11/17/18 05:30 11/17/18 11/18/18 11/19/18 05:59 05:59 05:59 Intake Total 280 1370 Output Total 420 530 Balance -140 840 PT 17.0 SEC (12.0-15.0) H 11/15/18 12:50 INR 1.37 (0.83-1.16) H 11/15/18 12:50 ICD10 Worksheet Patient Problems: Problems Problem Status Onset Sepsis Acute
[2018-11-18] MEDS ORDERED: POTASSIUM CL 20 MEQ TAB PO ONE (11:51)
--- NOTE | 2018-11-18 11:51 | PDIAF ---
- Diagnosis Diagnosis: Hepatic abscess Code Status: Do Not Resuscitate - Medication Management Alf Antibiotics: Unasyn 12gm daily IV General Lot Attendant Antibiotic Stop Date: 12/08/18 Discharge Medications: electronically signed and located in the Home Medication List. PICC Care - Routine: N/A - Orders Services needed: Home Care, Registered Nurse, Physical Therapy, Occupational Therapy Home Care Face to Face: I certify that this patient was under my care and that I had the required [id number]-aydh encounter meeting the encounter requirements on the discharge day. My findings support the fact that the patient is homebound as defined in Home Care Face to Face Continued: CMS Chapter 7 Medicare Benefits Manual 30.1.1 , The condition of the patient is such that there exists a normal inability to leave home and consequently, leaving home would require a considerable and taxing effort. Diet Recommendation: low fat Diet Texture: Regular Texture Diet Weigh Patient: weekly Additional Instructions: You will need to take care of your drains as you've been taught. Avoid strenuous activity. OFFICE TO SEE DR. CAIN IN 10-14 DAYS [phone] Get medication refills from Dr. Lucero. Giving you about 2 weeks worth of blood thinner (Lovenox injections) and furosemide (diuretic). Patient was instructed to wrap foot, ankle, lower legs very tightly with an HARINI wrap and elevate legs at least 30 degrees for 15 minutes daily to help with leg edema. Or wear compression stockings/hose (these can be difficult to apply unfortunately). Return to hospital for worsening symptoms. - Labs/Radiology CBC w/diff Date: 11/22/18 (Weekly Q Thursday) CMP Date: 11/22/18 (Weekly Q Thursday) Call or Fax Lab and Imaging Results to: Dr. Ortiz, - Follow Up Care Current Providers and Referrals: Yolanda Lucero MD [Medical Doctor] - follow up in 1 week Shadi Cain MD [Medical Doctor] - follow up in 10 days Mike Ortiz MD [Medical Doctor] - follow up in 2 weeks
[2018-11-18] MEDS: traMADol 50 MG TAB PO PRN (12:39)
--- NOTE | 2018-11-18 12:54 | ASMTLACE ---
LACE Length of stay for Answers: 7-13 days current admission Acuity / Level of Answers: Yes Care: Did the patient have an inpatient admission? Comorbidities - select Answers: Any tumor (including all that apply lymphoma or leukemia) # of Emergency department Answers: 0 visits in the last 6 months Score: 10 Date Signed: 11/18/2018 12:53 PM Electronically Signed By:BRUNA Ac
--- NOTE | 2018-11-18 12:54 | ASMTDCNOTE ---
Case Management Discharge Discharge Order Complete? Answers: Yes Patient to Obtain Answers: via Family Medications Transportation Arranged Answers: Family/Friends Faxed Final Orders Answers: Yes Agency/Facility Transfer Answers: Yes Report Printed & Faxed to Receiving Agency Family Notified Answers: Yes Discharge Comments Notes: CM discussed discharge plan with pt and her son, Alexander. Pt agreeable with plans for discharge home with [facility], and [facility]. No other CM needs identified. IM given and signed. Plan: home with [facility]. Date Signed: 11/18/2018 12:53 PM Electronically Signed By:BRUNA Ac
--- NOTE | 2018-11-18 13:38 | SOAPPROG ---
SOAP Progress Note Assessment/Plan: Assessment: Intrahepatic abscess: Culture demonstrates polymicrobial organisms. ID following and patient on Unasyn. Abscess better on CT. She is ready for d/c to home today. * Metastatic cholangiocarcinoma: Chemo on hold until her active infectious issues are resolved. Was scheduled to receive cycle 14 of cis/gem on 11/08/18. She will be on antibiotics for at least 4 weeks. Once the infection is under good control we can repeat her CT scan and compared to the previous PET scan and try to assess her status of disease. If she is progressing then she may need a second line therapy after she completely recovers. She is draining mostly ascites at this time. * Chemotherapy induced Anemia: Stabilized and improved after transfusion. * Right Portal Vein Clot and Splenic Infarcts: * Pain control: She is happy with the short acting/long acting regimen Plan: - Chemo on hold for now - Abx per ID - No txn today - Lovenox - Follow up with Dr. Lucero next week Subjective: Feels OK. Anxious to go home. Objective: Vital Signs Temp Pulse Resp BP Pulse Ox 36.6 C 71 16 154/74 H 91 L 11/18/18 07:57 11/18/18 07:57 11/18/18 07:57 11/18/18 07:57 11/18/18 07:57 Laboratory Results 11/17/18 05:30 11/17/18 05:30 11/16/18 11/17/18 11/18/18 23:59 23:59 23:59 Intake Total 580 600 770 Output Total 400 628 295 Balance 180 -28 475 PT 17.0 SEC (12.0-15.0) H 11/15/18 12:50 INR 1.37 (0.83-1.16) H 11/15/18 12:50 Physical Exam - Physical Exam General Appearance: alert, no apparent distress Respiratory: lungs clear Cardiac/Chest: regular rate, rhythm Abdomen: normal bowel sounds, soft Skin: pallor Neuro/Psych: alert, normal mood/affect, oriented x 3 ICD10 Worksheet Patient Problems: Problems Problem Status Onset Sepsis Acute
--- NOTE | 2018-11-18 13:53 | ASDISCHSUM ---
Discharge Information Plan Status:IV ABX/Infusion Medically Cleared to Leave: Discharge Date:11/18/2018 04:12 PM D/C Disposition:Home Health Service ADT D/C Disposition:Home, Routine, Self-Care Projected Discharge Date:11/17/2018 11:00 AM Transportation at D/C:Family Discharge Delay Reason: Follow-Up Date:11/17/2018 11:00 AM Discharge Slot: Final Diagnosis: Placement Information Referral Type:Palliative Care Referral ID:[id number] Provider Name:[facility] Address 1:[address] Phone Number: Address 2: Fax Number: City:[place] Selection Factors: State:[place] Referral Type:Home Infusion Referral ID:[id number] Provider Name:[facility] Address 1:[address] Address 2: City:[place] Selection Factors: State:[place] Referral Type:*Home Health Care Services Referral ID:[id number] Provider Name:[facility] [address] Address 2: City:[place] Selection Factors: State:[place] Patient Contact Information Contact Name:TASHA Relationship:Daughter Address: Home Phone: City: [facility] Phone: [facility] Code: Email: Financial Information Financial Class:Medicare Primary Plan Desc:MEDICARE INPATIENT Primary Plan Number:[id number] Secondary Plan Desc:[facility] Secondary Plan Number:[id number] Assessment Information LACE LACE Length of stay for Answers: 7-13 days current admission Acuity / Level of Answers: Yes Care: Did the patient have an inpatient admission? Comorbidities - select Answers: Any tumor (including all that apply lymphoma or leukemia) # of Emergency department Answers: 0 visits in the last 6 months Score: 10 Date Signed: 11/18/2018 12:53 PM Electronically Signed By:BRUNA Ac BC CM Progress Note CM Note CM Note Notes: Patient chart reviewed. 68 year old female with DNR status admitted via ED for c/o severe abdominal pain. Diagnosis of cholangiocarcinoma 7 months ago and has been undergoing treatments. Per CT large mass on liver is newer and could represent abscess This am she is exhibiting signs of sepsis and will transfer to ICU for more support. CM to follow for needs. Plan: TBD Date Signed: 11/09/2018 10:02 AM Electronically Signed By:Rebekah Wen RN [facility] CM Progress Note CM Note CM Note Notes: Chart reviewed. Per therapies patient will require [facility] services upon discharge. She has known history of cholangiocarcinoma. She is being treated for hepatic abscess CM to follow for needs. Plan: Home with [facility]. Date Signed: 11/12/2018 03:06 PM Electronically Signed By:Rebekah Wen RN [facility] CM Progress Note CM Note CM Note Notes: Patient plan of care reviewed in rounds. She is not as well today. WBC increased in setting of hepatic abscess. Hx of cholangiocarcinoma. Per therapy will need HHC at discharge. CM to follow for needs. Plan: TBD Date Signed: 11/14/2018 04:38 PM Electronically Signed By:Rebekah Wen RN [facility] CM Progress Note CM Note CM Note Notes: Per ID patient likely able to go home on antibiotics. Still has hepatic drain. Will need HHC for port access and care and drain care as well as PT and OT. [facility]. Kay Hern[facility]dez from [facility] meeting with family this pm. CM to follow. Plan: Dc to home with [facility]. Date Signed: 11/17/2018 04:46 PM Electronically Signed By:Rebekah Wen RN Case Management Discharge Plan Note Case Management Discharge Discharge Order Complete? Answers: Yes Patient to Obtain Answers: via Family Medications Transportation Arranged Answers: Family/Friends Faxed Final Orders Answers: Yes Agency/Facility Transfer Answers: Yes Report Printed & Faxed to Receiving Agency Family Notified Answers: Yes Discharge Comments Notes: CM discussed discharge plan with pt and her son, Alexander. Pt agreeable with plans for discharge home with [facility], [facility], and [facility]. No other CM needs identified. IM given and signed. Plan: home with [facility], [facility], and [facility]. Date Signed: 11/18/2018 12:53 PM Electronically Signed By:BRUNA Ac Intervention Information Intervention Type:*IM-Signed Date of Service:11/18/2018 01:51 PM Patient Type:Inpatient Staff Member:BRUNA Finnegan Ema Hours: Discipline: Severity: Comment:IM signed, copy in chart
--- NOTE | 2018-11-18 14:22 | PCMIDPN ---
Assessment/Plan: Assessment/Plan: Brief note: Confirm with home infusion pharmacy that Unasyn can be administered by continuous infusion with should mid being limited to 3 day supply for stability reasons. Therefore plan Unasyn 12 g IV Q 24 hr by continuous infusion rather than Zosyn to limit spectrum of activity. This will be provided by infusion pump rather than elastomeric ball which was discussed with patient today. 11/18/18 14:20 Objective: Vital Signs Temp Pulse Resp BP Pulse Ox 36.6 C 71 16 154/74 H 91 L 11/18/18 07:57 11/18/18 07:57 11/18/18 07:57 11/18/18 07:57 11/18/18 07:57 Laboratory Results 11/17/18 05:30 11/17/18 05:30 11/17/18 11/18/18 11/19/18 05:59 05:59 05:59 Intake Total 280 1370 Output Total 420 530 183 Balance -140 840 -183 ICD10 Worksheet Patient Problems: Problems Problem Status Onset Sepsis Acute
--- NOTE | 2018-11-18 15:46 | PDIAF ---
- Diagnosis Diagnosis: Hepatic abscess Code Status: Do Not Resuscitate - Medication Management Mcfp Antibiotics: Unasyn 12gm IV q24 hours by continous infusion Mcfp Antibiotic Stop Date: 12/08/18 Discharge Medications: electronically signed and located in the Home Medication List. PICC Care - Routine: N/A - Orders Services needed: Home Care, Registered Nurse, Physical Therapy, Occupational Therapy Home Care Face to Face: I certify that this patient was under my care and that I had the required [id number] encounter meeting the encounter requirements on the discharge day. My findings support the fact that the patient is homebound as defined in Home Care Face to Face Continued: CMS Chapter 7 Medicare Benefits Manual 30.1.1 , The condition of the patient is such that there exists a normal inability to leave home and consequently, leaving home would require a considerable and taxing effort. Diet Recommendation: low fat Diet Texture: Regular Texture Diet Weigh Patient: weekly Additional Instructions: You will need to take care of your drains as you've been taught. Avoid strenuous activity. OFFICE TO SEE DR. CAIN IN - DAYS [phone] Get medication refills from Dr. Lucero. Giving you about 2 weeks worth of blood thinner (Lovenox injections) and furosemide (diuretic). Patient was instructed to wrap foot, ankle, lower legs very tightly with an HARINI wrap and elevate legs at least 30 degrees for 15 minutes daily to help with leg edema. Or wear compression stockings/hose (these can be difficult to apply unfortunately). Return to hospital for worsening symptoms. - Labs/Radiology CBC w/diff Date: 11/22/18 (Weekly Q Thursday) CMP Date: 11/22/18 (Weekly Q Thursday) Call or Fax Lab and Imaging Results to: Dr. Ortiz, - Follow Up Care Current Providers and Referrals: Yolanda Lucero MD [Medical Doctor] - follow up in 1 week Shadi Cain MD [Medical Doctor] - follow up in 10 days Mike Ortiz MD [Medical Doctor] - 12/01/18 11:00 am
== END 2018-11-18 16:12 | disposition home health service (06) | DRG 871 ==
LOC: F1N 14:53 → OBSVTOIN 15:21 → F2N 11-09 10:42 → F1N 11-10 20:08
PROVIDERS: ADMIT Hospitalist; ATTEND Hospitalist
PROC: 30233N1 Transfusion of Nonautologous Red Blood Cells into Peripheral Vein, Percutaneous Approach (ICD-10-PCS; 2018-11-08)
PROC: 0F9130Z Drainage of Right Lobe Liver with Drainage Device, Percutaneous Approach (ICD-10-PCS; principal; 2018-11-09)
PROC: 0W9G30Z Drainage of Peritoneal Cavity with Drainage Device, Percutaneous Approach (ICD-10-PCS; principal; 2018-11-09)
PROC: 02HV33Z Insertion of Infusion Device into Superior Vena Cava, Percutaneous Approach (ICD-10-PCS; 2018-11-09)
DX: A40.9 Streptococcal sepsis, unspecified (principal); K75.0 Abscess of liver; R65.21 Severe sepsis with septic shock; C79.51 Secondary malignant neoplasm of bone; C78.7 Secondary malignant neoplasm of liver and intrahepatic bile duct; E87.1 Hypo-osmolality and hyponatremia; N17.9 Acute kidney failure, unspecified; R18.8 Other ascites; B95.2 Enterococcus as the cause of diseases classified elsewhere; D64.81 Anemia due to antineoplastic chemotherapy; R00.0 Tachycardia, unspecified; Z66 Do not resuscitate
CPT/HCPCS: 86301-90; 97110-GO; 97110-GP; 97116-GP; 97161-GP; 97166-GO; 97530-GP; 97535-GO; C1751; G8978-GP-CJ; G8979-GP-CI; G8987-GO-CI; G8988-GO-CI; J0295; J0610; J1170; J1650; J1940; J2543; J2916; J3475; P9016; Q9967

== ENCOUNTER → 2018-12-03 | Outpatient (CLI) | payer OTHER ==
[~2018-12-03] MED LIST changes: +IOPAMIDOL (ISOVUE 370) 100 ML BTL IV ONE; -LIDOCAINE 1% 300 MG/30 ML SDV ONE
== END ==
LOC: FIMAGING 09:19
PROVIDERS: ATTEND Internal Medicine Infectious Disease
DX: K76.9 Liver disease, unspecified (principal); R91.8 Other nonspecific abnormal finding of lung field; C22.1 Intrahepatic bile duct carcinoma
CPT/HCPCS: 71260; 74160; Q9967

== ENCOUNTER → 2018-12-13 | Outpatient (CLI) | payer OTHER ==
[~2018-12-13] MED LIST changes: -IOPAMIDOL (ISOVUE 370) 100 ML BTL IV ONE; +LIDOCAINE 1% 300 MG/30 ML SDV ONE
== END ==
LOC: FIMAGING 13:43
PROVIDERS: ATTEND Nurse Practitioner
PROC: 0W9G3ZZ Drainage of Peritoneal Cavity, Percutaneous Approach (ICD-10-PCS; principal; 2018-12-13)
DX: R18.0 Malignant ascites (principal); C24.0 Malignant neoplasm of extrahepatic bile duct; C79.51 Secondary malignant neoplasm of bone

== ENCOUNTER 2018-12-15 10:40 | Inpatient (IN) | payer OTHER ==
[2018-12-15] MEDS ORDERED: IOPAMIDOL (ISOVUE 370) 75 ML BTL IV ONE (13:16)
--- NOTE | 2018-12-15 13:41 | EDPHY ---
H & P Stated Complaint: Increased pain to abdomen and edema, sent from [facility] Time Seen by Provider: 12/15/18 11:05 HPI/ROS: CHIEF COMPLAINT: Abdominal pain HISTORY OF PRESENT ILLNESS: This is a 68-year-old female with a history of cholangiocarcinoma who was referred to the emergency department by Dr. Lucero, who saw her earlier today. She was hospitalized 11/08/2018 through 11/18/2018 with a diagnosis of hepatic abscess. She was treated with IV Unasyn and received her last dose 1 week ago. 5-6 days ago she noticed increasing abdominal pain. She has also had a decrease in her level of activity and her energy. She has taken a few falls and finds that she can't get up after falling. She notes increasing abdominal girth and increasing extremity swelling. 2 days ago she underwent paracentesis under ultrasound. The fluid was noted to be loculated. 3 L were removed. This is her 2nd paracentesis. With the 1st she had relief of pain and pressure. This has not occurred with a 2nd paracentesis. She had been undergoing chemotherapy (cis/gem) but this was discontinued due to her intrahepatic abscess. REVIEW OF SYSTEMS: A ten system review of systems was performed and is negative with the exception of the items mentioned in the HPI. Past medical history: 1. 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 Intrahepatic abscess 3. Portal vein thrombosis 4. Splenic infarcts 5. Cholelithiasis Social history: She is . She is retired. She is currently living with her daughter. General Appearance: Alert. Vital signs reviewed. Blood pressure 95/67. Eyes: Pupils equal and round, no conjunctival injection, no discharge. Anicteric. ENT, Mouth: Mucous membranes are moist, no oropharyngeal erythema or edema. Neck: No lymphadenopathy, supple. No meningismus. Respiratory: Lungs are clear to auscultation; no wheezes, rales, or rhonchi. Cardiovascular: Regular rate and rhythm; no murmur, rub, or gallop. Gastrointestinal: Abdomen is soft and mildly diffusely tender, no masses or organomegaly, bowel sounds normal. Skin: Warm and dry, petechiae noted on the abdomen and upper extremities. Pulse: 2+ radial pulses Back: Nontender to palpation over the thoracolumbar spine. No CVAT. Extremities: Anasarca. Neurological: Alert and oriented. Moving all four extremities easily and equally. OPAL. EOMI. Facial expressions symmetric. Tongue midline. Psychiatric: Normal affect. - Personal History Current Tetanus Diphtheria and Acellular Pertussis (TDAP): Yes - Medical/Surgical History Hx Asthma: No Hx Chronic Respiratory Disease: No Hx Diabetes: No Hx Cardiac Disease: No Hx Renal Disease: No Hx Cirrhosis: No Hx Alcoholism: No Hx HIV/AIDS: No Hx Splenectomy or Spleen Trauma: No Other PMH: Cholangio carncinoma. - Social History Smoking Status: Never smoked Constitutional: Initial Vital Signs Temperature (C) 36.7 C 12/15/18 10:41 Heart Rate 96 12/15/18 10:41 Respiratory Rate 16 12/15/18 10:41 Blood Pressure 95/67 L 12/15/18 10:41 O2 Sat (%) 94 12/15/18 10:41 O2 Delivery Mode Room Air Allergies/Adverse Reactions: No Known Allergies Allergy (Unverified 11/08/18 15:17) Home Medications: Medication Instructions Recorded Dexamethasone [Decadron 2 MG (*)] 1 mg PO DAILY 11/08/18 Prochlorperazine Maleate 10 mg PO Q6 PRN 11/08/18 [Compazine 10mg (*)] Ranitidine HCl [Zantac] 150 mg PO BID 11/08/18 traMADol [Ultram 50 mg (*)] 50 mg PO Q6 PRN 11/08/18 Furosemide 40 mg PO DAILY #30 tablet 11/18/18 Magnesium Oxide [Magnesium Oxide 400 mg PO DAILY #100 tab 11/18/18 400 mg (*)] Potassium Cl [Klor-Con 20 meq (*)] 20 meq PO DAILY #30 tab 11/18/18 morphINE SR [Ms Contin/Oramorph 15 15 mg PO BID #14 tab 11/18/18 mg (*)] Acetaminophen [Tylenol 325mg (*)] 325 mg PO DAILY PRN 12/15/18 Rivaroxaban [Xarelto] 20 mg PO DAILY 12/15/18 Sennosides/Docusate Sodium 1 - 2 tab PO BID PRN 12/15/18 [Senokot-S] Medical Decision Making - Diagnostics Imaging Results: Imaging Impressions Abdomen CT 12/15/18 13:03 Impression: 1. No significant change in diffuse hepatic metastasis. 2. Biliary stents in the right and left lobes of the liver extending into the duodenum without obstruction. 3. Cholelithiasis and gallbladder sludge, similar to previous study. 4. Moderate ascites and peritoneal carcinomatosis also appears unchanged. 5. No definite recurrent abscess or focal fluid collection. 6. Constipation without bowel obstruction. 7. Osseous metastasis. 8. Diffuse anasarca. Findings and recommendations discussed with Emergency Department physician, Willa Stoner at 1343 hour, 12/15/2018. Final report concurs with initial preliminary interpretation. ED Course/Re-evaluation: 68-year-old female with cholangiocarcinoma stage IV metastatic to bones, liver, and peritoneum. She presents today with worsening abdominal pain and worsening edema. She underwent paracentesis 2 days ago with no relief. She was referred by her oncologist today. She has not had fever. No vomiting or diarrhea. No dysuria. She has been using her pain medication, 50 mg OxyContin twice daily. 1 week ago she completed a course of Unasyn for treatment of an intrahepatic abscess. Concern today is for recurrent abscess or SBP. I note that fluid studies were sent at the time of her paracentesis but was unable to access the results of these studies. Sepsis is a concern in her and she is noted to be slightly hypotensive on arrival with a blood pressure of 95/67. Heart rate is 96 and her white blood cell count is elevated. This would meet criteria for sepsis. She was not given an initial bolus of IV normal saline, as I do not think that she can retain it intravascularly. She is mentating normally. I have conferred with hospitalist about her treatment. She will be given albumin. I was able to locate the results of her peritoneal fluid studies and they are indicative of spontaneous bacterial peritonitis. Ertepenem is being started. A lactate is pending. I discussed the CT scan results with Dr. Orr. No evidence of recurrent abscess. The patient was taken for ultrasound-guided paracentesis. She has been out of the department for some time. Lactate has not been obtained and the 2nd set of blood cultures have not been drawn. Patient is being admitted to the hospitalist service. Differential Diagnosis: I considered a differential diagnosis that includes but is not limited to SBP, recurrent hepatic abscess, urinary tract infection, cholelithiasis, pancreatitis , and advancement of her cancer. Critical Care Time: I spent a total of 30 minutes of critical care time in obtaining history, performing a physical exam, bedside monitoring of interventions, collecting and interpreting tests and discussion with consultants but not including time spent performing procedures. She was at risk of worsening hemodynamic status due to infection/anasarca/sepsis. - Data Points Medications Given: Discontinued Medications Morphine Sulfate (Morphine) 4 mg IVP EDNOW ONE Stop: 12/15/18 14:00 Last Admin: 12/15/18 14:04 Dose: 4 mg Departure - Departure Disposition: [facility] Inpatient Acute Clinical Impression: Spontaneous bacterial peritonitis Condition: Fair
[2018-12-15] MEDS ORDERED: ONDANSETRON 4 MG/2 ML VIAL IVP PRN (15:00)
[2018-12-15] MEDS ORDERED: ONDANSETRON DISINTEGRATING 4 MG TAB PO PRN (15:00)
[2018-12-15] MEDS ORDERED: ACETAMINOPHEN 325 MG TAB PO PRN (15:00)
[2018-12-15] MEDS ORDERED: PROMETHAZINE HCL 25 MG/ML INJ IVP PRN (15:00)
[2018-12-15] MEDS ORDERED: ALBUMIN 25% 200 ML IV ONE ×2 (15:00→22:00)
[2018-12-15] MEDS ORDERED: PROCHLORPERAZINE MALEATE 10 MG TAB PO PRN (15:02)
[2018-12-15] MEDS ORDERED: NS 500 ML IV ONE (15:11)
--- NOTE | 2018-12-15 15:53 | GHP ---
DATE OF ADMISSION: 12/15/2018 HISTORY OF PRESENT ILLNESS: Ms. Ayala is a pleasant 68-year-old female with a history of cholangioc arcinoma diagnosed in March of this year, who was on chemotherapy until October. Her recent history h as been complicated by a polymicrobial hepatic abscess and ascites. She received a course of Unasyn as an outpatient. She was seen yesterday at [facility] and had a paracentesis that is consisten t with spontaneous bacterial peritonitis. The patient has had poor p.o. intake. No fever or chills. Her fluid at that time was noted to have numerous septations. When I speak with the patient, she notes poor p.o. intake and desire to resume chemotherapy. She has fairly significant anasarca. Her albumin is 2.1 today. REVIEW OF SYSTEMS: Complete 10-point review of systems conducted and negative except as noted in the HPI. PAST MEDICAL HISTORY: 1. Cholangiocarcinoma. 2. Portal vein thrombosis discovered during her last admission. 3. History of hepatic abscess with Prevotella, Enterococcus and strep anginosus. 4. Kidney injury with resolution. 5. Anasarca, hypoalbuminemia, thrombocytopenia. 6. She also had splenic infarct during her last hospital stay. ALLERGIES: No known drug allergies. HOME MEDICATIONS: Tylenol, Lasix, Mag oxide, potassium, senna, docusate, dexamethasone, morphine 15 twice daily, Compazine, ranitidine, rivaroxaban, tramadol. SOCIAL HISTORY: Lives in [place] with her daughter. Originally from [place], [place]. Nonsmok er, nondrinker. FAMILY HISTORY: Reviewed and unremarkable. PHYSICAL EXAMINATION: VITAL SIGNS: Temp 36.7, blood pressure 95/67, pulse 96, breathing 16 times a minute, 94% on room air. GENERAL: No acute distress. HEENT: Sclerae anicteric. Oropharynx clear. Mucous membranes are moist. NECK: Supple without lymphadenopathy or JVD. LUNGS: Clear to auscul tation bilaterally. HEART: S1, S2. ABDOMEN: Soft, distended with obvious ascites. No rebound or guarding. LOWER EXTREMITIES: 4+ edema. SKIN: She has multiple ecchymoses throughout her skin. LABS: Recent INR is 1.46. White count is elevated at 25. It has been above 20 for most of the last 6 weeks or month anyway. Hemoglobin 9.8, hematocrit 31.4. These are greater than baseline. Platel ets are 132. Sodium 130, potassium 3.9, chloride 99, bicarb 26, BUN 34, creatinine 0.9. LFTs showed AST 44, ALT 58, alk phosphatase 291. CA19-9 a couple days ago was about 13,000. Peritoneal fluid 2 days ago showed a white count of 1758 with 80% neutrophils and 1600 red cells. She has history of h epatitis B surface antibody positive, consistent with prior vaccination. Cytology is pending. CT of the abdomen images reviewed and interpreted by me today show diffuse metastases, patent stents in the right and left lobes of the liver. Cholelithiasis and gallbladder sludge. Similar previous s tudy. Moderate ascites. Peritoneal carcinomatosis. No recurrent abscess. Constipation without bow el obstruction. Anasarca. I discussed the case with Dr. Willa Stoner. ASSESSMENT AND PLAN: 68-year-old female with bacterial peritonitis. 1. Bacterial peritonitis. I will start the patient on ertapenem. I have ordered a paracentesis for microbiologic diagnosis. It is reasonable to assume that it has similar microbiology, but given its rapid recurrence as she just finished her antibiotics, I do have concern about more resistant organi sms. Pseudomonas of the peritoneal cavity is relatively uncommon. This is the one Gram negative sor t of left uncovered by ertapenem. 2. Sepsis. The patient has leukocytosis and a source of infection. I will order a lactate. She mario s anasarca, so I am a little bit reluctant to give her large amounts of fluid. I am going to give he r a 500 cc bolus and a large amount of albumin. 3. Cholangiocarcinoma: The patient's chemotherapy is on hold given the intercurrent infections. 4. History of portal vein thrombosis. I am going to hold her Xarelto for the time being. It might be worth re-ultrasounding. I feel like the patient is somewhat high risk for ongoing anticoagulation given the complexity. 5. Pain. I will give her some IV pain medicine and continue her baseline dose of long-acting morphi ne. 6. Prophylaxis. We will do SCDs in the interim. DISPOSITION: Inpatient status, high risk. CODE: Full. /[id number]/MODL
[2018-12-15] MEDS: HYDROmorphONE/DILAUDID 1 MG/ML INJ IVP PRN (17:39)
--- NOTE | 2018-12-15 17:47 | PCMIDPN ---
Assessment/Plan: Assessment: 68-year-old woman with probable spontaneous bacterial peritonitis complicating widely metastatic cholangiocarcinoma. No systemic signs or symptoms of infection may be related to a relative immune suppression from metastatic cancer. Due to her prolonged receipt of ampicillin/sulbactam, reasonable to initiate therapy with broader agent. 1. Probable spontaneous bacterial peritonitis, acute 2. 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 Chronic leukocytosis 4. Thrombocytopenia, chronic 5. History of hepatic abscess, treated with drainage and approximately 4 weeks of Unasyn (completed 12/08/2018) 6. History of biliary stent placement 7. Chronic splenic infarcts Plan: 1. Continue ertapenem 1 g daily 2. Requesting culture if any peritoneal fluid is remaining from the 3. Discussed potential antibiotic side effects including antibiotic associated diarrhea, rash, confusion 12/15/18 18:03 12/15/18 18:05 12/15/18 18:07 Subjective: Patient sent to the emergency department by oncologist for inflammatory changes peritoneal fluid obtained via paracentesis performed on 12/13/2018. She notes progressively increasing abdominal distention and abdominal pain over the past 1 -2 weeks. In the past paracentesis has results pain to near normal, with paracentesis performed on the she did not have resolution of pain. She continues to have diffuse abdominal pain and distention without relief. She notes no fevers, chills, or night sweats over the past 2 weeks. Her last chemotherapy doses were on 10/25/2018 with no definitive plan to resume chemotherapy. She is at increased bruising with minor trauma to her upper and lower extremities. She did fall the day prior to admission and developed bruises on her knees bilaterally. She notes for the 1st time since her diagnosis of cholangiocarcinoma she has also developed diffuse arthralgias without erythema at any joints. She notes no diarrhea or constipation. No headaches, visual changes, neck stiffness or pain, shortness of breath, or dysuria. She developed a nonproductive cough for last 2 days which she associates with exposure to young grandchildren who both have acute illnesses. She completed therapy for her liver abscess on 12/08/2018 with radiographic resolution of the abscess. Objective: Vital Signs Temp Pulse Resp BP Pulse Ox 36.6 C 98 18 96/62 L 95 12/15/18 17:17 12/15/18 17:17 12/15/18 17:17 12/15/18 17:17 12/15/18 17:17 Medications Generic Name Dose Route Start Last Admin Trade Name Jan PRN Reason Stop Dose Admin Dexamethasone 1 mg 12/16/18 09:00 Dexamethasone PO 06/14/19 08:59 DAILY [facility] Ertapenem 1 gm/ Sodium 100 mls @ 200 mls/hr 12/15/18 15:00 Chloride IV 01/14/19 14:59 DAILY [facility] Protocol Microbiology 11/09/18 15:35 Peritoneal Fluid - Aspirate Gram Stain - Final 11/09/18 15:35 Peritoneal Fluid - Aspirate Anaerobic Culture - Final Enterococcus Faecalis Prevotella Buccae Streptococcus Anginosus Group Laboratory Tests 11/17/18 12/13/18 12/13/18 05:30 11:10 11:10 WBC 23.14 H 18.49 H Absolute Neuts (auto) 16.50 H Absolute Lymphs (auto) 0.53 L AST 67 H ALT 72 H Peritoneal WBC Periton Neutrophils 12/13/18 12/15/18 12/15/18 14:30 09:20 09:20 WBC 24.96 H Absolute Neuts (auto) 21.25 H Absolute Lymphs (auto) 1.32 AST 44 ALT 58 H Peritoneal WBC 1758 H Periton Neutrophils 80 H Personally reviewed abdominal CT scan which shows multiple lesions within the liver resolution of hepatic abscess. - Physical Exam General Appearance: alert, no apparent distress, non-toxic EENT: No scleral icterus Respiratory: lungs clear, normal breath sounds, No respiratory distress, No crackles, No wheezing Neck: full range of motion, supple Cardiac/Chest: regular rate, rhythm, No bradycardia, No tachycardia, No diastolic murmur, No systolic murmur Extremities: swelling (Anasarca involving bilateral lower extremities and bilateral upper extremities, diffuse ecchymoses, dorsum of left foot with dressing in place over blister that drained clear fluid), No erythema Abdomen: distended, guarding, tender (Diffusely tender abdomen, distended with hypoactive bowel sounds, diffuse ecchymoses across the abdomen) Skin: jaundice, No erythema Neuro/Psych: alert, oriented x 3, depressed affect - Time Spent With Patient Time Spent with Patient: greater than 35 minutes (Greater than 35 min were spent counseling and coordinating care with greater than 50% of this time at the bedside [id number] consultation with patient) Time Spent with Patient: Greater than 35 minutes spent on this patients care, greater than 50% of time spent counseling, educating, and coordinating care regarding the above mentioned plan. ICD10 Worksheet Patient Problems: Problems Problem Status Onset Spontaneous bacterial peritonitis Acute Sepsis Acute
[2018-12-15] MEDS: ERTAPENEM 1 GM in NS 100 ML IV SCH (20:51)
[2018-12-15] MEDS: morphINE SR 15 MG TAB PO SCH (20:53)
[2018-12-15] MEDS: FAMOTIDINE 20 MG TAB PO SCH (20:53)
[2018-12-16] MEDS: traMADol 50 MG TAB PO PRN ×3 (04:17→20:36)
[2018-12-16 04:26] LABS: PLATELET COUNT 122 10^3/uL (150-400)
[2018-12-16 04:38] LABS: INR 1.89 (0.83-1.16); PROTIME(PATIENT) 21.8 SEC (12.0-15.0)
[2018-12-16] MEDS: ERTAPENEM 1 GM in NS 100 ML IV SCH (08:45)
[2018-12-16] MEDS: DEXAMETHASONE 2 MG TAB PO SCH (08:45)
[2018-12-16] MEDS: morphINE SR 15 MG TAB PO SCH ×2 (08:45→20:36)
[2018-12-16] MEDS: FAMOTIDINE 20 MG TAB PO SCH ×2 (08:45→20:36)
[2018-12-16] MEDS ORDERED: RIVAROXABAN 20 MG TAB PO SCH (09:00)
--- NOTE | 2018-12-16 09:11 | PDMN ---
Medical Necessity Medical necessity: [facility] M160 Sepsis, A-3days: 68 yo presents w/ acute bacterial peritonitis and sepsis. ID consult, sepsis protocol, IV antibx started. WBC 29.68, pt is hypotensive and tachycardic. Meets [facility] IP criteria for sepsis w/ hemodynamic instability and parenteral antibx needed on IP basis, anticipate> 2MN stay. Hx cholangiocarcinoma receiving chemo last in Oct 2018, hepatic abscess completed course of unasyn as outpt, portal vein thrombosis, UZIEL, anasarca, hypoalbuminemia, thrombocytopenia, splenic infarct.
--- NOTE | 2018-12-16 11:15 | WOCRNPDOC ---
WOCRN Advanced Assessment Note - Skin Integrity Problem, Advanced Assess Left Sacrum Pressure Injury Dressing Type: Open to Air Myra Wound Tissue: Erythema, Non-blanching Site Measurement - Head-to-Toe Length X Width X Depth (cm): 3.8x3.2x0 Pressure Injury Stage: Deep Tissue Injury (DTI) Pressure Injury Present on Admit: Yes Skin Integrity Problem Comment: Patient preferentially lies on her left side for comfort, and was positioned in this manner when wound RN rounded. She also was sitting with HOB quite high at 80 degrees, which increases the pressure to the left sacral area. There is a remote possibility that this is an impact wound from a fall, however, due to its presentation and location this is less likely. Discussed pressure injury etiology, plan of care and treatment at length with patient. Wound will likely need follow up at outpatient clinic. Wound care will follow inpt and round again next week. Right Lower Abdomen Dressing Type: ABD Pad Dressing Description: Intact, Saturated Exudate Amount: Excessive Exudate Color: Clear, Yellow Skin Integrity Problem Comment: Dressing was saturated with drainage. Patient reports having changed it yesterday. There is extensive MARSI present on surrounding skin. Adhesive releaser spray will be provided along with skin barrier spray to help remediate this. Also Softsorb dressing would probably keep the drainage off the skin better than an ABD and this will be provided for nursing to use.
--- NOTE | 2018-12-16 13:32 | GCON ---
INPATIENT ONCOLOGY CONSULTATION DATE OF CONSULTATION: 12/16/2018 REQUESTING PHYSICIAN: Cain Medrano MD OUTPATIENT ONCOLOGIST: Yolanda Lucero MD REASON FOR CONSULTATION: A history of cholangiocarcinoma. HISTORY OF PRESENT ILLNESS: Ms. Ayala is a 68-year-old woman with a history of metastatic cholangio carcinoma. She was initially diagnosed in January 2018 with an extrahepatic cholangiocarcinoma with me tastatic disease to the bone. She started on chemotherapy with gemcitabine and cisplatin and had a v shakeel good response. Her last chemotherapy was in October. At that time, she developed a fever and a bdominal pain. She was found to have a liver abscess. She was placed on antibiotics, and the absces s was drained, and she was discharged to home several weeks ago. She returned to clinic yesterday wi th worsening abdominal pain and was admitted for expedited evaluation. She also had a paracentesis p erformed on December 13, which showed greater than 1000 neutrophils in the fluid. A culture was not p erformed. CT of the abdomen showed loculated ascites. There was no evidence of recurrence of the ab scess or progression of her cancer, and no worsening osseous metastatic disease, though, one of the t umors in the liver seemed somewhat larger, now measuring 2.3 x 1.8 cm. She was seen by Infectious Zuri scott who suspects she has peritonitis. She remains uncomfortable today. Her antibiotics were ballard ed yesterday, and she is now on ertapenem. PAST MEDICAL HISTORY: Otherwise unremarkable. CURRENT MEDICATIONS: 1. Ertapenem. 2. Dexamethasone. 3. Pepcid. 4. MS Contin. 5. Dilaudid for breakthrough pain. ALLERGIES: She has no known drug allergies. FAMILY HISTORY: Noncontributory. SOCIAL HISTORY: She is a nonsmoker, nondrinker. REVIEW OF SYSTEMS: Other than pertinent positive in the HPI, a 14-point review of systems is negativ e. EXAMINATION: VITAL SIGNS: Her temperature is 36.3, blood pressure 106/54, heart rate 100. Oxygen s aturation 94% on room air. GENERAL: She was moderately uncomfortable, in no acute distress. HEENT: Sclerae are anicteric. Oropharynx is clear. NECK: Supple without lymphadenopathy. RESPIRATORY: Lungs were clear to auscultation bilaterally. CARDIAC: Regular rate and rhythm. No murmurs, munroe ps or rubs. GI: Abdomen was moderately distended. Bowel sounds were quiet. She was diffusely tend er without rebound or guarding. EXTREMITIES: No edema. NEUROLOGICAL: She is alert and oriented x3 . LABORATORY DATA: White count 29,000, primarily neutrophils; hemoglobin 8.7; platelets of 122. Sodiu m 129, potassium 4.6, chloride 99, bicarbonate 25, BUN 139, creatinine 1.1, AST 34, ALT 42, alkaline phosphatase 210, albumin 2.1. CEA 12,935. IMPRESSION: This is a 68-year-old woman with a history of cholangiocarcinoma metastatic to bone. John Paul denney now presents with abdominal pain. She appears to have a peritoneal infection, possibly seeded by h er liver abscess. The primary tumor does appear to be somewhat larger, so I think this is unlikely t o be the cause of her pain. The CA 19-9 is also markedly elevated. Again, this likely reflects the peritoneal process and not cancer progression per se. RECOMMENDATIONS: 1. Continue to treat her infection, and we appreciate Infectious Disease input. 2. We continue to hold off on additional cancer therapy until the infection has resolved, cytotoxic chemotherapy is likely to make that worse. 3. We will continue to follow along with you while the patient is in the hospital. /[id number]/MODL
[2018-12-16] MEDS ORDERED: ALBUMIN 25% 200 ML IV ONE (13:38)
[2018-12-16] MEDS ORDERED: NS 1,000 ML IV SCH (13:45)
--- NOTE | 2018-12-16 13:56 | HOSPPROG ---
Hospitalist Progress Note Assessment/Plan: 68 yo F w cholangiocarcinoma here w peritonitis, encephalopathy peritonitis: no free air on imaging (interp by me) to suggets perforation likely continuation of hepatic abscess on ertapenem cx drawn yesterday sepsiis: source of infection, leukocytosis cholangiocarcinoma: imaging suggests no progression last chemo october encepalopathy: per son, has been getting more confused since last admit MRI scheduled for thursday, 12/20 but elsewhere reasonable to get while here, not ordered low suspcion for intracranial mets, suspect toxic metabolic anasarca: give albumin until >2.5 follow today, she is intravascularly dry john: albumin and IVF (just 1 L) proph: start LMWH Subjective: case d/w dr frank Objective: Vital Signs Temp Pulse Resp BP Pulse Ox 36.3 C 100 18 106/54 L 94 12/16/18 12:00 12/16/18 12:00 12/16/18 12:00 12/16/18 12:00 12/16/18 12:00 Microbiology 12/15/18 16:40 Gram Stain - Final Peritoneal Fluid - Aspirate Laboratory Results 12/16/18 04:11 12/16/18 04:11 12/15/18 12/16/18 12/17/18 05:59 05:59 05:59 Intake Total 950 Output Total 150 350 Balance 800 -350 PT 21.8 SEC (12.0-15.0) H 12/16/18 04:11 INR 1.89 (0.83-1.16) H 12/16/18 04:11 - Physical Exam Constitutional: no apparent distress, appears nourished Eyes: PERRL, anicteric sclera Ears, Nose, Mouth, Throat: moist mucous membranes, hearing normal Cardiovascular: regular rate and rhythym, no murmur, rub, or gallop, No tachycardia Respiratory: no respiratory distress, no rales or rhonchi Gastrointestinal: other (distended, present but hypoactive bowel sounds, tender but no rebound) Genitourinary: No francis in urethra Skin: warm, normal color Musculoskeletal: full muscle strength, no muscle tenderness Neurologic: No AAOx3 Psychiatric: interacting appropriately ICD10 Worksheet Patient Problems: Problems Problem Status Onset Spontaneous bacterial peritonitis Acute Sepsis Acute
--- NOTE | 2018-12-16 14:30 | PCMIDPN ---
Assessment/Plan: Assessment: 68-year-old woman with probable spontaneous bacterial peritonitis complicating widely metastatic cholangiocarcinoma. Remains clinically stable without hemodynamic changes, fevers, or chills. Await ascites fluid culture prior to deescalate in antibiotics. 1. Probable spontaneous bacterial peritonitis, acute 2. 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 Chronic leukocytosis 4. Thrombocytopenia, chronic 5. History of hepatic abscess, treated with drainage and approximately 4 weeks of Unasyn (completed 12/08/2018) 6. History of biliary stent placement 7. Chronic splenic infarcts Plan: 1. Continue ertapenem 1 g daily 2. Will follow the studies fluid culture from 12/15 3. Discussed potential antibiotic side effects including antibiotic associated diarrhea, rash, confusion Subjective: No fever or chills. One episode of loose stools. Abdominal pain remains shifted from the upper abdomen and lower abdomen. No improvement appetite. Objective: Vital Signs Temp Pulse Resp BP Pulse Ox 36.3 C 100 18 106/54 L 94 12/16/18 12:00 12/16/18 12:00 12/16/18 12:00 12/16/18 12:00 12/16/18 12:00 Microbiology 12/15/18 16:40 Gram Stain - Final Peritoneal Fluid - Aspirate Laboratory Results 12/16/18 04:11 12/16/18 04:11 12/15/18 12/16/18 12/17/18 05:59 05:59 05:59 Intake Total 950 Output Total 150 350 Balance 800 -350 Microbiology 12/15/18 16:40 Peritoneal Fluid - Aspirate Gram Stain - Final 12/15/18 16:40 Peritoneal Fluid - Aspirate Anaerobic Culture - Preliminary Laboratory Tests 12/16/18 12/16/18 04:11 04:11 WBC 29.68 H Absolute Seg Neuts 28.49 H Absolute Band Neuts 0.00 Absolute Lymphocytes 1.19 Creatinine 1.1 H Medications Generic Name Dose Route Start Last Admin Trade Name Freq PRN Reason Stop Dose Admin Ertapenem 1 gm/ Sodium 100 mls @ 200 mls/hr 12/15/18 15:00 12/16/18 08:45 Chloride IV 01/14/19 14:59 100 mls DAILY [facility] Protocol Dexamethasone 1 mg 12/16/18 09:00 12/16/18 08:45 Dexamethasone PO 06/14/19 08:59 1 mg DAILY RONI - Physical Exam General Appearance: alert, no apparent distress, non-toxic EENT: normal ENT inspection Respiratory: lungs clear, normal breath sounds, No respiratory distress, No crackles, No wheezing Neck: full range of motion, supple Cardiac/Chest: regular rate, rhythm, No bradycardia, No tachycardia, No diastolic murmur, No systolic murmur Extremities: swelling (Swelling in all extremities) Abdomen: soft, distended, tender, No guarding Skin: No rash, No erythema (Scattered ecchymotic lesions) Neuro/Psych: alert, normal mood/affect, confused (Occasional confusion with poor recall, awake and alert) - Time Spent With Patient Time Spent with Patient: greater than 25 minutes Time Spent with Patient: Greater than 25 minutes spent on this patients care, greater than 50% of time spent counseling, educating, and coordinating care regarding the above mentioned plan. ICD10 Worksheet Patient Problems: Problems Problem Status Onset Spontaneous bacterial peritonitis Acute Sepsis Acute
--- NOTE | 2018-12-16 16:32 | ASMTCMCOM ---
CM Note CM Note Notes: Patient seen in am rounds. She is a 68 year old with a diagnosis of metastatic cholangiocarcinoma who presented with increasing abdominal pain. She has recent history of hepatic abscess She was discharged with [facility] and [facility] for home infusion. ID consulted. CM to follow for needs. Plan: TBD Date Signed: 12/16/2018 04:32 PM Electronically Signed By:Rebekah Wen RN
[2018-12-17 06:56] LABS: PLATELET COUNT 75 10^3/uL (150-400)
[2018-12-17] MEDS: DEXAMETHASONE 2 MG TAB PO SCH (10:35)
[2018-12-17] MEDS: ERTAPENEM 1 GM in NS 100 ML IV SCH (10:35)
[2018-12-17] MEDS: morphINE SR 15 MG TAB PO SCH ×2 (10:35→20:39)
[2018-12-17] MEDS: FAMOTIDINE 20 MG TAB PO SCH ×2 (10:35→20:39)
--- NOTE | 2018-12-17 11:03 | SOAPPROG ---
SOAP Progress Note Assessment/Plan: Assessment: 1. Metastatic cholangiocarcinoma 2. Liver abscess 3. Bacterial peritonitis 4. Anemia due to chronic inflammation, chemotherapy 5. chronic portal vein thrombosis. on xarelto as outpatient Overall stable. Plan: - continue abx. appreciate ID recs. - will hold off on additional chemo for now. cancer appears more or less stable - currently on prophylactic lovenox,. should consider increasing to therapeutic dose or change to Xarelto. unclear if this is contributing to her pain, as it appears stable. - will transfuse 1 unit RBC due to hgb 6.8 30 min spent w/ pt and in coordination of care. 12/17/18 11:00 12/17/18 11:03 Subjective: feels a little better today. Objective: exam: tired Lungs CTAB CV RRR no MGR Abd: distended. quiet BS. diffusely mildly tender Ext: no edema Skin: no petechie, purpura Vital Signs Temp Pulse Resp BP Pulse Ox 36.6 C 90 16 111/60 97 12/17/18 07:16 12/17/18 07:16 12/17/18 07:16 12/17/18 07:16 12/17/18 07:16 Microbiology 12/15/18 16:40 Mycobacterial Smear (BOUCHRA) - Final Peritoneal Fluid - Aspirate 12/15/18 16:40 Gram Stain - Final Peritoneal Fluid - Aspirate Laboratory Results 12/17/18 05:40 12/17/18 05:40 12/16/18 12/17/18 12/18/18 05:59 05:59 05:59 Intake Total 950 1600 Output Total 150 1750 Balance 800 -150 PT 21.8 SEC (12.0-15.0) H 12/16/18 04:11 INR 1.89 (0.83-1.16) H 12/16/18 04:11 ICD10 Worksheet Patient Problems: Problems Problem Status Onset Spontaneous bacterial peritonitis Acute Sepsis Acute
[2018-12-17] MEDS: ENOXAPARIN 40 MG/0.4 ML SYR SC SCH (11:13)
[2018-12-17] MEDS: traMADol 50 MG TAB PO PRN (12:32)
[2018-12-17] MEDS: HYDROmorphONE/DILAUDID 1 MG/ML INJ IVP PRN (14:53)
--- NOTE | 2018-12-17 15:10 | ASMTCMCOM ---
CM Note CM Note Notes: PT has been ordered, awaiting eval. Pt noted to be slowly improving. D/C Plan: TBD Date Signed: 12/17/2018 03:09 PM Electronically Signed By:Paty Barajas
--- NOTE | 2018-12-17 15:19 | HOSPPROG ---
Hospitalist Progress Note Assessment/Plan: DIAGNOSES: * peritonitis after recent treatment for hepatic abscess; no free air on imaging -likely SBP due to ongoing ascites -Dr. Ortiz will be changing antibiotic to Rocephin today * acute sepsis: Peritonitis as source of infection, leukocytosis * acute metabolic encepalopathy multifactorial: Also suspect toxic encephalopathy as she takes morphine Compazine and tramadol at home -per son, more confused since last admit in per Dr. Ortiz notably more confused since her last visit with him in clinic about 10 days ago * anemia and thrombocytopenia due to chemotherapy and inflammation -both anemia and thrombocytopenia worse today -no signs of bleeding but will need to watch closely as she is also on anticoagulation, just had paracentesis -with platelets decreasing will need to hold anticoagulation at this time ( Dr. Ellington he has recommendation are E anticoagulation noted, will use full-dose anticoagulation when we resume after determining that there is no bleeding) * ascites and anasarca: Multifactorial with portal vein thrombus, malnutrition and other issues -will need to recheck albumin levels -help to get back on anticoagulation quickly -may need diuretics when she is stable enough to do that * john: albumin and IVF (just 1 L) * cholangiocarcinoma: imaging suggests no progression (known mets to liver, bone , peritoneal carcinomatosis) last october Seen by me today on multidisciplinary rounds as well as hospitals rounds I reviewed together with Dr. Mike Ortiz today as well as with Dr. James Ellington SUBJECTIVE: The patient has some decrease in abdominal pain today, still poor appetite remains very sleepy and lethargic No headache no focal neurologic symptoms Son notes that she does still remain intermittently disoriented OBJECTIVE Vitals reviewed: Blood pressure soft but stable, no fever otherwise stable Exam: Falls asleep repeatedly during our discussion and examination, when awake is very attentive and conversant answer questions okay and asks questions Know she is in hospital and why though son mentions that sees specifically intermittently fairly disoriented here still skin warm dry color ok resps not labored lungs diminished but clear BSs heart regular abd distended, mildly tense, very mild tenderness, bowel sounds present limbs warm, little edema iv site ok Lab data: Sodium better 133, creatinine better at 1.1 White count still high at 19,000 thousand but notably better than yesterday Hemoglobin notably decreased to 6.8 and platelets 122 to 75 Objective: Vital Signs Temp Pulse Resp BP Pulse Ox 36.6 C 90 16 111/60 97 12/17/18 07:16 12/17/18 07:16 12/17/18 07:16 12/17/18 07:16 12/17/18 07:16 Microbiology 12/15/18 16:40 Gram Stain - Final Peritoneal Fluid - Aspirate 12/15/18 16:40 Mycobacterial Smear (BOUCHRA) - Final Peritoneal Fluid - Aspirate Laboratory Results 12/17/18 05:40 12/17/18 05:40 12/16/18 12/17/18 12/18/18 06:59 06:59 06:59 Intake Total 950 1600 Output Total 150 1750 Balance 800 -150 PT 21.8 SEC (12.0-15.0) H 12/16/18 04:11 INR 1.89 (0.83-1.16) H 12/16/18 04:11 - Time Spent With Patient Time Spent with Patient: greater than 35 minutes Time Spent with Patient: Greater than 35 minutes spent on this patients care, greater than 50% of time spent counseling, educating, and coordinating care regarding the above mentioned plan. ICD10 Worksheet Patient Problems: Problems Problem Status Onset Spontaneous bacterial peritonitis Acute Sepsis Acute
--- NOTE | 2018-12-17 15:49 | PCMIDPN ---
Assessment/Plan: Assessment/Plan: * SBP: Clinical in ascitic fluid findings compatible with SBP. Ascitic fluid and blood cultures both remain negative. Will transition ertapenem to ceftriaxone once daily given no growth of more resistant gram-negative rods. Continue to follow clinical course over time with ongoing antibiotic therapy. Continue to follow white blood cell count over time which is currently decreasing. * Recent hepatic abscess: Clinically and radiographically resolved after course of IV Unasyn. Was on Augmentin after completing Unasyn given concern about role of gallbladder in initial abscess. Doubt cholecystitis contributing to current presentation as SBP seems more likely. Time spent, > 35 minutes, of which > 1/2 was spent in education/counseling/ coordination of care related to SBP, recent hepatic abscess, and discussion of gallbladder and confusion including conversation with son and patient's daughter (by phone) with both myself and Dr. Mahmood. 12/17/18 15:46 12/17/18 15:49 Subjective: Patient with intermittent confusion and continued abdominal pain. Objective: Vital Signs Temp Pulse Resp BP Pulse Ox 36.4 C 94 13 116/52 L 97 12/17/18 14:00 12/17/18 14:00 12/17/18 14:00 12/17/18 14:00 12/17/18 07:16 Microbiology 12/15/18 16:40 Gram Stain - Final Peritoneal Fluid - Aspirate 12/15/18 16:40 Mycobacterial Smear (BOUCHRA) - Final Peritoneal Fluid - Aspirate Laboratory Results 12/17/18 05:40 12/17/18 05:40 12/16/18 12/17/18 12/18/18 05:59 05:59 05:59 Intake Total 950 1600 Output Total 150 1750 Balance 800 -150 Ertapenem # 3 Ascitic fluid cultures no growth Blood cultures x2 no growth Laboratory Tests 12/13/18 14:30 Peritoneal WBC 1758 H Peritoneal RBC 1647 H Periton Neutrophils 80 H - Physical Exam General Appearance: alert, no apparent distress EENT: No scleral icterus, No thrush, No conjunctival petechiae Respiratory: lungs clear, No respiratory distress Cardiac/Chest: regular rate, rhythm Abdomen: distended, tender (Mild diffusely) Skin: other (Ecchymotic band across abdominal wall) Neuro/Psych: other (Intermittent somnolence but arousable and interactive) ICD10 Worksheet Patient Problems: Problems Problem Status Onset Spontaneous bacterial peritonitis Acute Sepsis Acute
--- NOTE | 2018-12-17 16:35 | PDPCPN ---
Palliative Care Progress Note Assessment/Plan: Assessment: [facility] [address] [place] [id number] (O) [phone](F) PALLIATIVE CARE NOTE NAME:Rebekah Ayala : 52 Date: 12/16/2018 VISIT TYPE: Follow-up inpatient palliative care visit LOCATION: [facility] LEVEL OF CARE: Hospice eligible DIAGNOSES: 1. Cholangiocarcinoma 2. Hepatic abscess CC: Initial palliative hospital visit HPI: Ms. Ayala is a 68-year-old female with a history of cholangiocarcinoma diagnosed in January 2018. She has been receiving cisplatin and gemcitabine chemotherapy. For the most part she has been tolerating this fairly well however has experienced nausea and fairly significant fatigue. She began experiencing increasing abdominal pain with some abdominal bloating. She has been at home and has been experiencing increasing abdominal discomfort. She states that she has not been eating secondary to some nausea as well as anorexia. She also experiences some increase in pain with eating. Her pain also increases with movement. She has been admitted to [facility] with a likely peritonitis. Cultures are still pending at this time. She continues to have fairly significant abdominal pain which she localizes to the lower abdominal region. She has complained of increasing confusion which is corroborated by her son. She has complaint of significant generalized edema. She has concern with taking more opioids as she does not like how it makes her feel and act especially around her grandchildren. Her son verbalizes this same concern however also struggles with seeing his mother in pain. She has also had several falls at home. PMH: As above ALLERGIES: NKDA FAMILY HISTORY: Mother with a history of lung cancer SOCIAL HISTORY: She lives independently and has 3 children. PATIENT GOALS OF CARE: 1. Symptom management including pain and nausea 2. Return home and live independently. 3. Continue treatment. 4. Spend time with her children and grandchildren ACTIVE SYMPTOMS/ASSESSMENTS/RECOMMENDATIONS: 1. Cholangiocarcinoma C 22.1: Metastatic disease. Has been receiving cisplatin and gemcitabine which is on hold at this time due to hepatic abscess And now peritonitis. 2. Pain G89.3: She continues on her morphine extended release 15 mg twice a day. She also has hydromorphone when necessary ordered. She has only received this twice since her admission and we have discussed with she and her son to utilize this more frequently. MODIFIED [place] SYMPTOM ASSESSMENT SCALE: 0-none; 1-3 mild; 4-6 moderate; 7-10 severe Unable to Respond: No [ ] Delirium: 0-none Depression: 0-none Anxiety: 0none Tiredness (fatigue): 5-Mod Drowsiness (sleepiness): 0-none Pain: 5 Nausea: 2 Anorexia: 0-none Shortness of Breath: 0-none Secretions: 0-none Constipation: 0-none Symptom and side effect management: (acceptable to patient and family) RISK FACTORS FOR RE-HOSPITALIZATION: o LIVES ALONE o CAREGIVER ANXIETY o >2 HOSPITALIZATIONS IN PAST 12 MONTHS o DISEASE EDUCATION DEFICIT OBJECTIVE FINDINGS Palliative Performance Score: 60 FAST: Not applicable NYHA: n/a Vital Signs: Wt: MAC: Neuro: A&O to person, place, time and event HEENT: Normocephalic; atraumatic RESP: Regular, deep, symmetrical. No cough or wheezing CV: no LE edema GI: mildly distended and firm. Tenderness to palpation primarily in the lower quadrants. : no dysuria or hematuria MSK: moderate muscle wasting. Ambulatory SKIN: intact LAB Data: N/A Disposition: Current inpatient admission ADVANCE CARE PLANNING DISCUSSION MOST Form: DNR PLAN: 1. [employer] visit schedule Upon discharge for community palliative care support. 2. Palliative Supportive Service referrals for SW to be made upon discharge to home Thank you for the opportunity to participate in the care of this patient. TIME SPENT: [id number] 35 min >50% of the time spent counseling, educating and coordinating the above topics. Umesh Bolton ANPBC Plan: 12/17/18 16:35 Objective: Vital Signs Temp Pulse Resp BP Pulse Ox 36.4 C 94 13 116/52 L 97 12/17/18 14:00 12/17/18 14:00 12/17/18 14:00 12/17/18 14:00 12/17/18 07:16 Microbiology 12/15/18 16:40 Gram Stain - Final Peritoneal Fluid - Aspirate 12/15/18 16:40 Mycobacterial Smear (BOUCHRA) - Final Peritoneal Fluid - Aspirate Laboratory Results 12/17/18 05:40 12/17/18 05:40 12/16/18 12/17/18 12/18/18 05:59 05:59 05:59 Intake Total 950 1600 Output Total 150 1750 Balance 800 -150 PT 21.8 SEC (12.0-15.0) H 12/16/18 04:11 INR 1.89 (0.83-1.16) H 12/16/18 04:11 ICD10 Worksheet Patient Problems: Problems Problem Status Onset Spontaneous bacterial peritonitis Acute Sepsis Acute
--- NOTE | 2018-12-17 18:29 | HOSPPROG ---
Hospitalist Progress Note Assessment/Plan: Hospitalist additional time visit note, care and plans discussion with family inpatient A subsequent visit today I met with patient and her son at the bedside with the patient's daughter on speaker phone. They had many questions about the causes of the patient's acute presentation, about her laboratory changes, about her prognosis, and about treatment choices and plan. I answered all these in detail for them and to their satisfaction. Essentially this patient has a recently completed treatment of an infection but now a new bacterial infection with SBP and this should be a treatable issue. I think she has ascites in her abdomen as the cause of the SBP in the ascites is probably caused by combination of portal vein thrombosis and peritoneal carcinomatosis. When she leaves treatment for her infection it will come back to trying to treat her ascites. This may remain bout before difficult in may potentially require recurrent paracenteses or even consider placement of a Parker drain. Ideally she would be able to continue with cancer treatment and this should come to controlling her ascites if it is successful. Will need to get her to a place where she can begin on therapy again. Ultimately the prognosis is limited by her having widely metastatic cholangiocarcinoma, and the outcome for this may ultimately not be good for her but this will be something the need to discuss further with the Oncology team. Greater than 40 min spent at bedside discussion as above Objective: Vital Signs Temp Pulse Resp BP Pulse Ox 36.6 C 85 16 120/70 92 12/17/18 16:45 12/17/18 16:45 12/17/18 16:45 12/17/18 16:45 12/17/18 16:45 Microbiology 12/15/18 16:40 Gram Stain - Final Peritoneal Fluid - Aspirate 12/15/18 16:40 Mycobacterial Smear (BOUCHRA) - Final Peritoneal Fluid - Aspirate Laboratory Results 12/17/18 05:40 12/17/18 05:40 12/16/18 12/17/18 12/18/18 06:59 06:59 06:59 Intake Total 950 1600 980 Output Total 150 1750 400 Balance 800 -150 580 PT 21.8 SEC (12.0-15.0) H 12/16/18 04:11 INR 1.89 (0.83-1.16) H 12/16/18 04:11 ICD10 Worksheet Patient Problems: Problems Problem Status Onset Spontaneous bacterial peritonitis Acute Sepsis Acute
[2018-12-18] MEDS: traMADol 50 MG TAB PO PRN (04:29)
[2018-12-18] MEDS: morphINE SR 15 MG TAB PO SCH ×2 (09:46→21:16)
[2018-12-18] MEDS: DEXAMETHASONE 2 MG TAB PO SCH (09:46)
[2018-12-18] MEDS: FAMOTIDINE 20 MG TAB PO SCH ×2 (09:46→21:17)
[2018-12-18] MEDS: ENOXAPARIN 40 MG/0.4 ML SYR SC SCH (11:34)
--- NOTE | 2018-12-18 12:08 | SOAPPROG ---
SOAP Progress Note Assessment/Plan: Assessment/Plan: 68 yo woman w metastatic cholangiocarcinoma and liver abscess/ peritonitis 1. liver abscess - essentially resolved s/p biliary drains, on abx 2. peritonitis - thought related to above vs necrotic GB peritoneal fluid and blood cultures so far negative appreciate ID 3. cholangiocarcinoma - under good control w gem/cis last chemo 10/2018 holding for while while pt stabilizes from infection standpoint 4. anemia - unclear why pt dropped Hct a day ago lovenox on hold 5. thrombocytopenia - multifactorial, monitor 6. portal vein thrombosis - resume full dose AC when H/H stabilizes as long as plts >70k 12/18/18 12:12 Subjective: Pt reports feeling much better today + BM + flatus edema unchanged Objective: Vital Signs Temp Pulse Resp BP Pulse Ox 36.4 C 88 18 119/68 93 12/18/18 08:20 12/18/18 09:58 12/18/18 09:58 12/18/18 08:20 12/18/18 09:58 Microbiology 12/15/18 16:40 Gram Stain - Final Peritoneal Fluid - Aspirate Laboratory Results 12/17/18 20:50 12/17/18 05:40 12/17/18 12/18/18 12/19/18 05:59 05:59 05:59 Intake Total 1600 1350 Output Total 1750 950 Balance -150 400 PT 21.8 SEC (12.0-15.0) H 12/16/18 04:11 INR 1.89 (0.83-1.16) H 12/16/18 04:11 Gen - NAD, sitting in chair HEENT - anicteric CV - RRR Resp - crackles at bases abd - distended, +ascites ext - anasarca ICD10 Worksheet Patient Problems: Problems Problem Status Onset Spontaneous bacterial peritonitis Acute Sepsis Acute
--- NOTE | 2018-12-18 12:21 | PCMIDPN ---
Assessment/Plan: Assessment/Plan: * SBP: Clinical and ascitic fluid findings compatible with SBP. Ascitic fluid and blood cultures both remain negative. Will continue ceftriaxone once daily. With persistent distension and abdominal discomfort, likely will need repeat paracentesis at which point cell count can be repeated to see if neutrophil count is decreasing. * Recent hepatic abscess: Clinically and radiographically resolved after course of IV Unasyn. Continue to observe over time. Question of possible contribution from gallbladder. Will have patient follow-up with Dr. Cain regarding this question once clinically improved. Do not think this is likely contributing to current presentation. 12/18/18 12:15 12/18/18 12:23 12/18/18 12:25 Subjective: Patient complains of persistent abdominal distension and discomfort. Objective: Vital Signs Temp Pulse Resp BP Pulse Ox 36.4 C 88 18 119/68 93 12/18/18 08:20 12/18/18 09:58 12/18/18 09:58 12/18/18 08:20 12/18/18 09:58 Microbiology 12/15/18 16:40 Gram Stain - Final Peritoneal Fluid - Aspirate Laboratory Results 12/17/18 20:50 12/17/18 05:40 12/17/18 12/18/18 12/19/18 05:59 05:59 05:59 Intake Total 1600 1350 Output Total 1750 950 Balance -150 400 Ceftriaxone # 1 Antibiotics # 4 Blood and ascitic fluid cultures no growth - Physical Exam General Appearance: non-toxic, other (Remains mildly confused) EENT: No scleral icterus, No thrush Respiratory: lungs clear, No respiratory distress Cardiac/Chest: regular rate, rhythm Extremities: other (Ecchymoses over both patellar regions) Skin: No embolic lesions Neuro/Psych: confused (Remains intermittently confused although less prominent than yesterday) ICD10 Worksheet Patient Problems: Problems Problem Status Onset Spontaneous bacterial peritonitis Acute Sepsis Acute
[2018-12-18 12:27] LABS: PLATELET COUNT 79 10^3/uL (150-400)
[2018-12-18] MEDS: HYDROmorphONE/DILAUDID 1 MG/ML INJ IVP PRN (14:01)
[2018-12-18] MEDS ORDERED: HEPARIN 10,000 UNIT/10 ML MDV (1,000 UNIT/ML) IVP PRN (15:12)
[2018-12-18] MEDS ORDERED: HEPARIN/DEXTROSE 500 ML IV SCH (15:15)
[2018-12-18] MEDS ORDERED: FUROSEMIDE 20 MG/2 ML VIAL IVP ONE (15:46)
[2018-12-18] MEDS ORDERED: ALBUMIN 25% 100 ML IV ONE (15:46)
--- NOTE | 2018-12-18 15:48 | HOSPPROG ---
Hospitalist Progress Note Assessment/Plan: DIAGNOSES: * spontaneous bacterial peritonitis with ongoing ascites -continue IV Rocephin * acute sepsis: Peritonitis as source of infection, leukocytosis * acute metabolic encepalopathy multifactorial: -persists at this time unchanged from yesterday * anemia and thrombocytopenia due to chemotherapy and cancer as well as inflammatory illness -anemia better after transfusion yesterday with no signs of active bleeding -at this point should be able to resume her anticoagulation * portal vein thrombosis -will begin IV heparin drip so that we can turn that off as needed for any bleeding or for procedures, further procedures are anticipated * ascites and anasarca: Multifactorial with portal vein thrombus, malnutrition and other issues -at this time will stop IV fluids, start Lasix, give some albumin, and add Wayne stockings * john: albumin and IVF (just 1 L) -recheck renal function tomorrow * cholangiocarcinoma: imaging suggests no progression (known mets to liver, bone , peritoneal carcinomatosis) last october Seen by me today on multidisciplinary rounds as well as hospitals rounds I reviewed together with Dr. Mike Ortiz today as well as with Dr. Risa Echols SUBJECTIVE: Minimal abdominal discomfort, appetite minimal Very weak No activity of any significance today OBJECTIVE Vitals reviewed: 1 temperature of 37.7 degrees today otherwise normal vital signs Exam: still quite groggy, a bit slow in processing and with some disorientation skin warm dry pale resps not labored lungs diminished but clear BSs heart regular abd distended but little changed from yesterday, mildly tense, very mild tenderness, bowel sounds present limbs warm, little edema iv site ok Lab data: Hemoglobin is at 10 today after transfusion yesterday Objective: Vital Signs Temp Pulse Resp BP Pulse Ox 36.8 C 91 16 123/68 H 94 12/18/18 15:41 12/18/18 15:41 12/18/18 15:41 12/18/18 15:41 12/18/18 15:41 Microbiology 12/15/18 16:40 Gram Stain - Final Peritoneal Fluid - Aspirate Laboratory Results 12/18/18 12:15 12/17/18 05:40 12/17/18 12/18/18 12/19/18 06:59 06:59 06:59 Intake Total 1600 1350 Output Total 1750 950 Balance -150 400 PT 21.8 SEC (12.0-15.0) H 12/16/18 04:11 INR 1.89 (0.83-1.16) H 12/16/18 04:11 - Time Spent With Patient Time Spent with Patient: greater than 35 minutes Time Spent with Patient: Greater than 35 minutes spent on this patients care, greater than 50% of time spent counseling, educating, and coordinating care regarding the above mentioned plan. ICD10 Worksheet Patient Problems: Problems Problem Status Onset Spontaneous bacterial peritonitis Acute Sepsis Acute
[2018-12-18 16:14] LABS: INR 1.53 (0.83-1.16); PROTIME(PATIENT) 18.5 SEC (12.0-15.0)
[2018-12-18] MEDS: MULTIVITAMINS 1 EACH TAB PO SCH (17:08)
[2018-12-19] MEDS: traMADol 50 MG TAB PO PRN (04:59)
[2018-12-19 05:32] LABS: PLATELET COUNT 56 10^3/uL (150-400)
[2018-12-19] MEDS ORDERED: FUROSEMIDE 20 MG/2 ML VIAL IVP ONE (09:43)
[2018-12-19] MEDS ORDERED: ALBUMIN 25% 100 ML IV ONE (09:43)
--- NOTE | 2018-12-19 09:45 | HOSPPROG ---
Hospitalist Progress Note Assessment/Plan: DIAGNOSES: * spontaneous bacterial peritonitis with ongoing ascites -continue IV Rocephin * acute sepsis: Peritonitis as source of infection, leukocytosis * acute metabolic encepalopathy multifactorial: -persists at this time unchanged from yesterday * anemia and thrombocytopenia due to chemotherapy and cancer as well as inflammatory illness -anemia notably worse today, no definite signs of bleeding -platelets notably worse today, will need to stop anticoagulation * portal vein thrombosis -heparin now held due to thrombocytopenia * ascites and anasarca: Multifactorial with portal vein thrombus, malnutrition and other issues -repeat paracentesis, therapeutic, is scheduled for today -continue off IV fluids, will give another dose of Lasix with albumin, continue Wayne stockings (these are not on, will talk to nurse about keeping them on) * john: albumin and IVF (just 1 L) -recheck renal function tomorrow * cholangiocarcinoma: imaging suggests no progression (known mets to liver, bone , peritoneal carcinomatosis) last october Seen by me today on multidisciplinary rounds as well as hospitals rounds I reviewed together with Dr. Mike Ortiz today as well as with Dr. Risa Echols SUBJECTIVE: Little abdominal discomfort, just waking up Denies other discomforts Feels tired OBJECTIVE Vitals reviewed: No fever overnight, otherwise stable vitals Exam: Wide awake, remains disoriented Seems perhaps a bit more energetic today skin warm dry pale resps not labored lungs diminished BSs with a few rhonchi heart regular abd distended but little changed from yesterday, less tense, very mild tenderness, bowel sounds present limbs warm, more pitting edema today iv site ok Lab data: White count down to 10,000 Hemoglobin notably decreased today 8 from 10 Platelets notably decreased 56 from 70s Heparin stopped but heparin levels were in range prior to that Objective: Vital Signs Temp Pulse Resp BP Pulse Ox 36.7 C 74 18 116/60 97 12/19/18 08:00 12/19/18 08:00 12/19/18 08:00 12/19/18 08:00 12/19/18 08:00 Microbiology 12/15/18 16:40 Gram Stain - Final Peritoneal Fluid - Aspirate Laboratory Results 12/19/18 04:50 12/17/18 05:40 12/18/18 12/19/18 12/20/18 06:59 06:59 06:59 Intake Total 1350 956 Output Total 950 2100 Balance 400 -1144 PT 18.5 SEC (12.0-15.0) H 12/18/18 15:50 INR 1.53 (0.83-1.16) H 12/18/18 15:50 - Time Spent With Patient Time Spent with Patient: greater than 35 minutes Time Spent with Patient: Greater than 35 minutes spent on this patients care, greater than 50% of time spent counseling, educating, and coordinating care regarding the above mentioned plan. ICD10 Worksheet Patient Problems: Problems Problem Status Onset Spontaneous bacterial peritonitis Acute Sepsis Acute
[2018-12-19] MEDS: morphINE SR 15 MG TAB PO SCH ×2 (10:13→20:52)
[2018-12-19] MEDS: DEXAMETHASONE 2 MG TAB PO SCH (10:14)
[2018-12-19] MEDS: MULTIVITAMINS 1 EACH TAB PO SCH (10:14)
[2018-12-19] MEDS: FAMOTIDINE 20 MG TAB PO SCH ×2 (10:14→20:52)
--- NOTE | 2018-12-19 11:59 | SOAPPROG ---
SOAP Progress Note Assessment/Plan: Assessment/Plan: 68 yo woman w metastatic cholangiocarcinoma and liver abscess/ peritonitis 1. liver abscess - essentially resolved s/p biliary drains, on abx 2. peritonitis - thought related to above vs necrotic GB peritoneal fluid and blood cultures so far negative appreciate ID 3. cholangiocarcinoma - under good control w gem/cis but would say PS tenuous last chemo 10/2018 holding for while while pt stabilizes from infection standpoint 4. anemia, thrombocytopenia - unclear why pt dropped Hct a day ago platelets and WBC also lower today suggesting from drugs/inflammation/infection Pt is intermediate risk for HIT low threshold to send HIT Ab before heparin resumed 6. portal vein thrombosis - appears chronic; holding AC w thrombocytopenia 12/19/18 12:01 Subjective: No acute events pt states feeling better denies bleeding still w severe swelling Objective: Vital Signs Temp Pulse Resp BP Pulse Ox 36.7 C 74 18 116/60 97 12/19/18 08:00 12/19/18 08:00 12/19/18 08:00 12/19/18 08:00 12/19/18 08:00 Microbiology 12/15/18 16:40 Gram Stain - Final Peritoneal Fluid - Aspirate Laboratory Results 12/19/18 04:50 12/17/18 05:40 12/18/18 12/19/18 12/20/18 05:59 05:59 05:59 Intake Total 1350 956 Output Total 950 2100 Balance 400 -1144 PT 18.5 SEC (12.0-15.0) H 12/18/18 15:50 INR 1.53 (0.83-1.16) H 12/18/18 15:50 Gen - NAD, chronically ill appearing HEENT - anicteric CV - RRR Chest - CTAB Abd - diffusely distended, + ascites, BS+ Ext - anasarca ICD10 Worksheet Patient Problems: Problems Problem Status Onset Spontaneous bacterial peritonitis Acute Sepsis Acute
[2018-12-19] MEDS ORDERED: LIDOCAINE 1% 300 MG/30 ML SDV ONE (12:17)
--- NOTE | 2018-12-19 13:50 | ASMTCMCOM ---
CM Note CM Note Notes: Patient plan of care discussed in am rounds. 89 year old female with history of cholangiocarcinoma.Patient up in chair appears brighter today. For paracentesis with Dr. Hadley ordoñez pm. [facility] CM to follow for needs. Plan: Dc with prior services when medically cleared for discharge to home. Date Signed: 12/19/2018 01:49 PM Electronically Signed By:Rebekah Wen RN
--- NOTE | 2018-12-19 14:48 | PCMIDPN ---
Assessment/Plan: Assessment/Plan: * SBP: Clinical and ascitic fluid findings compatible with SBP. Repeat paracentesis performed earlier today based on persistent distension and abdominal discomfort. Fluid to be sent for cell count, Gram stain and culture. Continue ceftriaxone in interim. White blood cell count has improved significantly with ongoing antibiotic therapy. * Recent hepatic abscess: Clinically and radiographically resolved after course of IV Unasyn. 12/19/18 14:46 Subjective: Patient complains of persistent lower abdominal pain. Appetite improved and eager to advance diet. Status post paracentesis earlier today with noted loculated ascitic fluid. Objective: Vital Signs Temp Pulse Resp BP Pulse Ox 36.7 C 74 18 116/60 97 12/19/18 08:00 12/19/18 08:00 12/19/18 08:00 12/19/18 08:00 12/19/18 08:00 Microbiology 12/15/18 16:40 Gram Stain - Final Peritoneal Fluid - Aspirate Laboratory Results 12/19/18 04:50 12/17/18 05:40 12/18/18 12/19/18 12/20/18 05:59 05:59 05:59 Intake Total 1350 956 Output Total 950 2100 Balance 400 -1144 Ceftriaxone # 2 Antibiotics # 5 Blood cultures and ascitic fluid cultures no growth - Physical Exam General Appearance: alert, no apparent distress EENT: No scleral icterus, No thrush Respiratory: crackles (Bilateral bases) Cardiac/Chest: regular rate, rhythm, other (Port nontender without erythema) Abdomen: distended, tender (Mildly tender in lower quadrants bilaterally) Skin: rash (Ecchymoses over both patellar regions; ecchymotic band across abdominal wall) Neuro/Psych: confused (Persistent mild confusion) - Time Spent With Patient Time Spent with Patient: greater than 25 minutes Time Spent with Patient: Greater than 25 minutes spent on this patients care, greater than 50% of time spent counseling, educating, and coordinating care regarding the above mentioned plan. ICD10 Worksheet Patient Problems: Problems Problem Status Onset Spontaneous bacterial peritonitis Acute Sepsis Acute
[2018-12-20] MEDS: traMADol 50 MG TAB PO PRN (08:21)
[2018-12-20] MEDS: MULTIVITAMINS 1 EACH TAB PO SCH (08:22)
[2018-12-20] MEDS: morphINE SR 15 MG TAB PO SCH ×2 (08:22→21:39)
[2018-12-20] MEDS: DEXAMETHASONE 2 MG TAB PO SCH (08:22)
[2018-12-20] MEDS: FAMOTIDINE 20 MG TAB PO SCH ×2 (08:22→21:39)
[2018-12-20] MEDS ORDERED: FUROSEMIDE 40 MG/4 ML VIAL IVP ONE (08:47)
[2018-12-20] MEDS ORDERED: ALBUMIN 25% 100 ML IV ONE (08:47)
--- NOTE | 2018-12-20 08:48 | HOSPPROG ---
Hospitalist Progress Note Assessment/Plan: DIAGNOSES: * spontaneous bacterial peritonitis with ongoing ascites -continue IV Rocephin -ongoing treatment of the ascites volume as able * acute sepsis: Peritonitis as source of infection, leukocytosis * acute metabolic encepalopathy multifactorial -improving notably at this time * ascites and anasarca: Multifactorial with carcinomatosis, portal vein thrombus, malnutrition, anemia, others -continue IV albumin and IV Lasix, will have restriction for fluid intake orally -if ascites does not resolve it is felt to possibly be from carcinomatosis, it may need to consider a [place] drain for management * portal vein thrombosis -heparin now held due to thrombocytopenia * anemia and thrombocytopenia due to chemotherapy and cancer as well as inflammatory illness -anemia stable today with no signs of bleeding, remains moderately severe -platelets worse again today, with increased petechiae at hands and feet -continue off anticoagulation, follow closely for signs of bleeding * recent treatment for hepatic abscess completed earlier this month * cholangiocarcinoma: imaging suggests no progression (known mets to liver, bone , peritoneal carcinomatosis) last october Seen by me today on multidisciplinary rounds as well as hospitals rounds Reviewed today with Dr. Black SUBJECTIVE: Still some abdominal discomfort, a bit less, but slept well overnight Is hungry this morning No other discomforts OBJECTIVE Vitals reviewed: No fever overnight, otherwise stable vitals Exam: Very alert, better oriented today Appears energetic skin warm dry pale; notably increased petechiae on hands and feet resps not labored lungs diminished BSs with a few rhonchi heart regular abd distended but soft, minimally tender, bowel sounds present limbs warm, still with pitting edema from toes up to mid abdomen iv site ok Lab data: White count down to 10,000 Hemoglobin stable overnight at 8 Platelets lower at 51 Objective: Vital Signs Temp Pulse Resp BP Pulse Ox 36.6 C 73 18 102/57 L 93 12/20/18 08:00 12/20/18 08:00 12/20/18 08:00 12/20/18 08:00 12/20/18 08:00 Microbiology 12/19/18 13:30 Gram Stain - Final Peritoneal Fluid - Aspirate Laboratory Results 12/20/18 06:05 12/17/18 05:40 12/19/18 12/20/18 12/21/18 06:59 06:59 06:59 Intake Total 956 1570 Output Total 2100 800 Balance -1144 770 PT 18.5 SEC (12.0-15.0) H 12/18/18 15:50 INR 1.53 (0.83-1.16) H 12/18/18 15:50 - Time Spent With Patient Time Spent with Patient: greater than 35 minutes Time Spent with Patient: Greater than 35 minutes spent on this patients care, greater than 50% of time spent counseling, educating, and coordinating care regarding the above mentioned plan. ICD10 Worksheet Patient Problems: Problems Problem Status Onset Spontaneous bacterial peritonitis Acute Sepsis Acute
--- NOTE | 2018-12-20 09:56 | WOCRNPDOC ---
WOCRN Advanced Assessment Note - Skin Integrity Problem, Advanced Assess Left Sacrum Pressure Injury Dressing Type: Mepilex Border Integumentary Issue Intervention: Visualized Under Dressing Site Measurement - Head-to-Toe Length X Width X Depth (cm): 2.5x2.5x0 Skin Integrity Problem Comment: This wound is healing like a contusion rather than a pressure injury. Original assessment that this was a deep tissue pressure injury was incorrect. No open tissue noted and wound dimensions are approximately 50% smaller. Wound care will sign off. TOREY arriaga and patient aware. Bilateral Toe Dressing Type: Open to Air Skin Integrity Problem Comment: Petichiea on all toes of bilateral feet. No open areas noted. Wound care will sign off this patient.
--- NOTE | 2018-12-20 12:11 | PCMIDPN ---
Assessment/Plan: Assessment: 68-year-old woman with spontaneous bacterial peritonitis complicating widely metastatic cholangiocarcinoma. Cultures of the ascitic fluid remain negative, but ascitic fluid inflammatory cells decreased with antimicrobial therapy. Plan to complete a week of treatment followed by SBP prophylaxis. SBP prophylaxis should be continued indefinitely. 1. Spontaneous bacterial peritonitis, acute; improved 2. 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 Chronic leukocytosis 4. Thrombocytopenia, chronic 5. History of hepatic abscess, treated with drainage and approximately 4 weeks of Unasyn (completed 12/08/2018) 6. History of biliary stent placement 7. Chronic splenic infarcts Plan: 1. Continue ceftriaxone 2 g daily 2. Discussed potential antibiotic side effects including antibiotic associated diarrhea, rash, C diff colitis Christian Beltran MD Infectious Diseases Subjective: No fever or chills. Abdominal pain remains, primarily over the lower quadrants bilaterally. No diarrhea or nausea, eating small bites and sips. Objective: Vital Signs Temp Pulse Resp BP Pulse Ox 36.6 C 73 18 102/57 L 82 L 12/20/18 08:00 12/20/18 08:00 12/20/18 08:00 12/20/18 08:00 12/20/18 11:27 Microbiology 12/15/18 16:40 Gram Stain - Final Peritoneal Fluid - Aspirate 12/19/18 13:30 Gram Stain - Final Peritoneal Fluid - Aspirate Laboratory Results 12/20/18 06:05 12/17/18 05:40 12/19/18 12/20/18 12/21/18 05:59 05:59 05:59 Intake Total 956 1570 Output Total 2100 800 Balance -1144 770 Medications Generic Name Dose Route Start Last Admin Trade Name Freq PRN Reason Stop Dose Admin Ceftriaxone Sodium 2 gm/ 50 mls @ 100 mls/hr 12/18/18 09:00 12/20/18 08:23 Sodium Chloride IV 01/17/19 08:59 50 mls DAILY RONI Protocol Discontinued Medications Generic Name Dose Route Start Last Admin Trade Name Freq PRN Reason Stop Dose Admin Ertapenem 1 gm/ Sodium 100 mls @ 200 mls/hr 12/15/18 15:00 12/17/18 10:35 Chloride IV 01/14/19 14:59 100 mls DAILY RONI Protocol Microbiology 12/19/18 13:30 Peritoneal Fluid - Aspirate Gram Stain - Final 12/15/18 16:40 Peritoneal Fluid - Aspirate Gram Stain - Final 12/15/18 20:45 Blood Blood Culture - Preliminary 12/15/18 20:35 Blood Blood Culture - Preliminary 12/15/18 16:40 Peritoneal Fluid - Aspirate Fungal Culture - Preliminary 12/15/18 16:40 Peritoneal Fluid - Aspirate Anaerobic Culture - Preliminary Laboratory Tests 12/17/18 12/18/18 12/19/18 05:40 12:15 04:50 WBC 18.84 H 10.91 H Plt Count 79 L 56 L Immature Gran # 0.38 H 0.17 H Absolute Seg Neuts 18.99 H 17.52 H Absolute Lymphocytes 0.59 L 0.57 L 12/20/18 06:05 WBC Plt Count 51 L Immature Gran # Absolute Seg Neuts Absolute Lymphocytes - Physical Exam General Appearance: alert, no apparent distress, cachetic, non-toxic Respiratory: No respiratory distress Neck: full range of motion, supple Extremities: No erythema (Scattered ecchymoses) Abdomen: distended, tender (Tender diffusely, primarily over the lower quadrants bilaterally), No guarding Skin: other (Scattered ecchymoses, including the palm of the right hand.) Neuro/Psych: alert (Somnolent at times. Wakes readily to verbal and tactile stimuli.) ICD10 Worksheet Patient Problems: Problems Problem Status Onset Spontaneous bacterial peritonitis Acute Sepsis Acute
--- NOTE | 2018-12-20 13:36 | SOAPPROG ---
SOAP Progress Note Assessment/Plan: A/P: * Peritonitis: complete one week abx, then SBP prophylaxis. * Liver abscess: essentially resolved. * Ascites: loculated fluid collections make taps (and possibility of indwelling cathether) less helpful. * Metastatic cholangiocarcinoma: under good control w gem/cis but further tx will depend on performance status. Last chemo 10/2018. * Anemia, thrombocytopenia: likely multifactorial (infection, abx, anemia of chemo/chronic disease). HIT a consideration, but multiple other etiologies possible. No indication for xfus. * Portal vein thrombosis: appears chronic. Holding AC due to thrombocytopenia. 12/20/18 13:37 Subjective: Abd fullness unchanged. Pain control adequate. O: VS reviewd, AF. Gen: chronically fatigued appearing, NAD. HEENT: no icterus. Lungs: breathing comfortably. Abd: distended. Laboratory Tests 12/17/18 12/17/18 12/18/18 05:40 20:50 12:15 Hgb 6.8 L 9.1 L 10.1 L Plt Count 75 L 79 L 12/19/18 12/20/18 12/20/18 04:50 06:05 06:05 Hgb 8.0 L 7.9 L Plt Count 56 L 51 L Objective: Vital Signs Temp Pulse Resp BP Pulse Ox 36.7 C 81 18 113/55 L 95 12/20/18 12:00 12/20/18 12:00 12/20/18 12:00 12/20/18 12:00 12/20/18 12:00 Microbiology 12/15/18 16:40 Gram Stain - Final Peritoneal Fluid - Aspirate 12/19/18 13:30 Gram Stain - Final Peritoneal Fluid - Aspirate Laboratory Results 12/20/18 06:05 12/17/18 05:40 12/19/18 12/20/18 12/21/18 05:59 05:59 05:59 Intake Total 956 1570 Output Total 2100 800 Balance -1144 770 PT 18.5 SEC (12.0-15.0) H 12/18/18 15:50 INR 1.53 (0.83-1.16) H 12/18/18 15:50 ICD10 Worksheet Patient Problems: Problems Problem Status Onset Spontaneous bacterial peritonitis Acute Sepsis Acute
[2018-12-21 05:37] LABS: PLATELET COUNT 55 10^3/uL (150-400)
[2018-12-21] MEDS: FAMOTIDINE 20 MG TAB PO SCH ×2 (09:20→21:57)
[2018-12-21] MEDS: DEXAMETHASONE 2 MG TAB PO SCH (09:20)
[2018-12-21] MEDS: MULTIVITAMINS 1 EACH TAB PO SCH (09:20)
[2018-12-21] MEDS: morphINE SR 15 MG TAB PO SCH ×2 (09:22→21:57)
--- NOTE | 2018-12-21 10:36 | SOAPPROG ---
SOAP Progress Note Assessment/Plan: Assessment: SOAP Progress Note Assessment/Plan: A/P: * Peritonitis: complete one week abx, then SBP prophylaxis. * Liver abscess: essentially resolved. * Ascites: loculated fluid collections make taps (and possibility of indwelling cathether) less helpful. * Metastatic cholangiocarcinoma: under good control w gem/cis but further tx will depend on performance status. Last chemo 10/2018. * Anemia, thrombocytopenia: likely multifactorial (infection, abx, anemia of chemo/chronic disease). HIT a consideration, but multiple other etiologies possible. No indication for xfus. * Portal vein thrombosis: appears chronic. Holding AC due to thrombocytopenia. * Deconditioning-patient lives with daughter. May need SNF stay depending on performance status. * * Addendum-patient's grand daughter (whom she lives with) recently hospitalized for two weeks at [facility] with RSV and Jauregui virus. Patient with wet cough, but she believes it's improving. Will discuss with ID 12/20/18 13:37 Plan: 12/21/18 10:36 12/21/18 11:08 12/21/18 11:15 Subjective: has wet cough, but feels it's getting better, frustrated with extent of anasarca Objective: Vital Signs Temp Pulse Resp BP Pulse Ox 37.1 C 95 16 130/74 H 94 12/21/18 09:15 12/21/18 09:15 12/21/18 09:15 12/21/18 09:15 12/21/18 09:15 Microbiology 12/15/18 20:45 Blood Culture - Final Blood 12/15/18 20:35 Blood Culture - Final Blood 12/19/18 13:30 Gram Stain - Final Peritoneal Fluid - Aspirate 12/15/18 16:40 Gram Stain - Final Peritoneal Fluid - Aspirate Laboratory Results 12/21/18 05:30 12/21/18 05:30 12/20/18 12/21/18 12/22/18 05:59 05:59 05:59 Intake Total 1570 1150 Output Total 800 300 50 Balance 770 850 -50 PT 18.5 SEC (12.0-15.0) H 12/18/18 15:50 INR 1.53 (0.83-1.16) H 12/18/18 15:50 Physical Exam - Physical Exam General Appearance: alert, no apparent distress Neck: supple Respiratory: other (scattered rhonchi, no wheezing) Abdomen: soft, distended Extremities: other (3-4+ edema) ICD10 Worksheet Patient Problems: Problems Problem Status Onset Spontaneous bacterial peritonitis Acute Sepsis Acute
--- NOTE | 2018-12-21 13:26 | ASMTCMCOM ---
CM Note CM Note Notes: Patient plan of care reviewed in am rounds. Per therapy notes may needs SNF vs HHC. Patient continues to receive treatment for peritonitis Poor level of functioning. Little appetite. [place] following. Patient was seen by [facility]. CM to follow for needs. Plan: TBD Date Signed: 12/21/2018 01:25 PM Electronically Signed By:Rebekah Wen RN
[2018-12-21] MEDS ORDERED: PROTOCOL POTASSIUM 1 DOSE MISC PRN (14:02)
[2018-12-21] MEDS: traMADol 50 MG TAB PO PRN ×2 (16:28→22:08)
--- NOTE | 2018-12-21 17:54 | PCMIDPN ---
Assessment/Plan: Assessment/Plan: * SBP: Clinical and ascitic fluid findings compatible with SBP. Repeat ascitic fluid study showed decreasing white blood cell count in ascites. Cultures remain negative from initial and repeat cultures. Completing 7 days of IV antibiotic therapy today. Will begin ciprofloxacin 500 mg orally daily as SBP prophylaxis starting tomorrow. Side effects of fluoroquinolone use including tendinopathy, allergic reactions, skin rash, C difficile colitis, potential drug interactions, and need to avoid concomitant intake of polyvalent cations discussed with patient. * Recent hepatic abscess: Clinically and radiographically resolved after course of IV Unasyn. * Cough: Patient with positive PCR for RSV. 1 of her grand children was hospitalized at [facility] with RSV recently as probable etiology for her infection. Will obtain chest x-ray for baseline in the setting of RSV and immunosuppression. Contact and droplet precautions for RSV. 12/21/18 17:50 Subjective: Patient with persistent lower abdominal pain which is largely unchanged. Patient complains of cough although feels like this is less prominent. No significant shortness of breath. Objective: Vital Signs Temp Pulse Resp BP Pulse Ox 36.4 C 92 16 121/72 H 98 12/21/18 16:13 12/21/18 16:13 12/21/18 16:13 12/21/18 16:13 12/21/18 16:13 Microbiology 12/19/18 13:30 Gram Stain - Final Peritoneal Fluid - Aspirate 12/15/18 16:40 Gram Stain - Final Peritoneal Fluid - Aspirate 12/15/18 16:40 Mycobacterial Smear (BOUCHRA) - Final Peritoneal Fluid - Aspirate 12/15/18 20:45 Blood Culture - Final Blood 12/15/18 20:35 Blood Culture - Final Blood Laboratory Results 12/21/18 05:30 12/21/18 05:30 12/20/18 12/21/18 12/22/18 05:59 05:59 05:59 Intake Total 1570 1150 Output Total 800 300 250 Balance 770 850 -250 Ceftriaxone # 4 Antibiotics # 7 RSV specimen positive by PCR testing Ascitic fluid culture no growth Laboratory Tests 12/19/18 13:30 Peritoneal WBC 377 H Peritoneal RBC 2287 H Periton Neutrophils 77 H Peritoneal Tot Protein 2.2 - Physical Exam General Appearance: alert, no apparent distress, non-toxic EENT: No scleral icterus, No thrush Respiratory: crackles (Occasional bibasilar) Cardiac/Chest: regular rate, rhythm Abdomen: distended, tender (Bilateral lower quadrant) Skin: rash (Ecchymotic areas over both knees and) Neuro/Psych: confused (Mild but significantly decreased versus previously) ICD10 Worksheet Patient Problems: Problems Problem Status Onset Spontaneous bacterial peritonitis Acute Sepsis Acute
--- NOTE | 2018-12-21 18:20 | HOSPPROG ---
Hospitalist Progress Note Assessment/Plan: DIAGNOSES: * spontaneous bacterial peritonitis with ongoing ascites -continue IV Rocephin 1 more day then changed to Levaquin as prophylaxis tomorrow -ongoing treatment of the ascites volume as able * acute sepsis: Peritonitis as source of infection, leukocytosis; sepsis resolved * ascites and anasarca: Multifactorial with peritoneal carcinomatosis, portal vein thrombus, malnutrition, anemia, others -continue IV albumin and IV Lasix, oral fluid restriction -if ascites does not resolve it is felt to possibly be largely from carcinomatosis, may need to consider a [place] drain for management * acute metabolic encepalopathy multifactorial -alertness is much better since admission -confusion/orientation initially were getting notably better bur somewhat worse today * portal vein thrombosis -heparin now held due to thrombocytopenia * anemia and thrombocytopenia due to chemotherapy and cancer as well as inflammatory illness -anemia stable today with no signs of bleeding, remains moderately severe -platelets slightly better today 55,000; the petechiae are improving slightly -continue off anticoagulation, follow closely for signs of bleeding * recent treatment for hepatic abscess completed earlier this month; no signs of ongoing trouble * cholangiocarcinoma: Last imaging suggests no progression (known mets to liver , bone, peritoneal carcinomatosis) last chemo october Seen by me today on multidisciplinary rounds as well as hospitals rounds Reviewed today with Dr. Mike Ortiz SUBJECTIVE: Still some abdominal discomfort, a bit less, but slept well overnight Is hungry this morning has been eating quite well No other discomforts OBJECTIVE Vitals reviewed: No fever overnight, otherwise stable vitals Exam: Very alert, but more confused today, looks very comfortable Appears energetic skin warm dry pale; notably increased petechiae on hands and feet resps not labored lungs diminished BSs with a few rhonchi heart regular abd distended but soft, minimally tender, bowel sounds present limbs warm, still with pitting edema from toes up to mid abdomen iv site ok Lab data: Hemoglobin stable overnight at 8 Platelets better at 55 K Objective: Vital Signs Temp Pulse Resp BP Pulse Ox 36.4 C 92 16 121/72 H 98 12/21/18 16:13 12/21/18 16:13 12/21/18 16:13 12/21/18 16:13 12/21/18 16:13 Microbiology 12/19/18 13:30 Gram Stain - Final Peritoneal Fluid - Aspirate 12/15/18 16:40 Gram Stain - Final Peritoneal Fluid - Aspirate 12/15/18 16:40 Mycobacterial Smear (BOUCHRA) - Final Peritoneal Fluid - Aspirate 12/15/18 20:45 Blood Culture - Final Blood 12/15/18 20:35 Blood Culture - Final Blood Laboratory Results 12/21/18 05:30 12/21/18 05:30 12/20/18 12/21/18 12/22/18 06:59 06:59 06:59 Intake Total 1570 1150 Output Total 800 300 250 Balance 770 850 -250 PT 18.5 SEC (12.0-15.0) H 12/18/18 15:50 INR 1.53 (0.83-1.16) H 12/18/18 15:50 - Time Spent With Patient Time Spent with Patient: greater than 35 minutes Time Spent with Patient: Greater than 35 minutes spent on this patients care, greater than 50% of time spent counseling, educating, and coordinating care regarding the above mentioned plan. ICD10 Worksheet Patient Problems: Problems Problem Status Onset Spontaneous bacterial peritonitis Acute Sepsis Acute
[2018-12-21] MEDS ORDERED: HYDROmorphONE/DILAUDID 2 MG/ML INJ IVP PRN (20:30)
[2018-12-22] MEDS: traMADol 50 MG TAB PO PRN ×3 (04:14→23:56)
[2018-12-22] MEDS ORDERED: POTASSIUM CL 10 MEQ TAB PO ONE ×2 (05:03→22:47)
[2018-12-22 05:20] LABS: PLATELET COUNT 48 10^3/uL (150-400)
[2018-12-22] MEDS: MULTIVITAMINS 1 EACH TAB PO SCH (09:06)
[2018-12-22] MEDS: DEXAMETHASONE 2 MG TAB PO SCH (09:06)
[2018-12-22] MEDS: CIPROFLOXACIN 500 MG TAB PO SCH (09:06)
[2018-12-22] MEDS: FAMOTIDINE 20 MG TAB PO SCH ×2 (09:07→20:20)
--- NOTE | 2018-12-22 09:32 | PCMIDPN ---
Assessment/Plan: # SBP: continue Cipro for prophylaxis indefinitely. Completed 7 days of treatment yesterday --call ID for additional questions # Recent hepatic abscess: Clinically and radiographically resolved after course of IV Unasyn. # Mild leukocytosis: overall down from admit, on chr steroids Microbiology 12/19/18 13:30 Peritoneal Fluid - Aspirate Cx: NGTD 12/15/18 20:35 Blood Cx (2) Neg 12/15/18 16:40 Peritoneal Fluid - Cx: NGTD Subjective: patient report URI sx are improved No abdominal pain no diarrhea hoping to be able to go home Objective: Vital Signs Temp Pulse Resp BP Pulse Ox 36.4 C 81 18 121/67 H 92 12/22/18 08:00 12/22/18 08:00 12/22/18 08:00 12/22/18 08:00 12/22/18 08:00 Microbiology 12/19/18 13:30 Gram Stain - Final Peritoneal Fluid - Aspirate 12/15/18 16:40 Gram Stain - Final Peritoneal Fluid - Aspirate 12/15/18 16:40 Mycobacterial Smear (BOUCHRA) - Final Peritoneal Fluid - Aspirate 12/15/18 20:45 Blood Culture - Final Blood 12/15/18 20:35 Blood Culture - Final Blood Laboratory Results 12/22/18 04:15 12/22/18 04:15 12/21/18 12/22/18 12/23/18 05:59 05:59 05:59 Intake Total 1150 1200 Output Total 300 550 Balance 850 650 - Physical Exam General Appearance: alert, no apparent distress EENT: pale conjunctiva, No scleral icterus Respiratory: No accessory muscle use Neck: supple Extremities: pedal edema (mild) Abdomen: normal bowel sounds, non-tender, soft, ascites Skin: No rash Neuro/Psych: alert - Line/s Mediport Lines: other (L chest wall), No drainage, No erythema - Time Spent With Patient Time Spent with Patient: greater than 25 minutes Time Spent with Patient: Greater than 25 minutes spent on this patients care, greater than 50% of time spent counseling, educating, and coordinating care regarding the above mentioned plan. ICD10 Worksheet Patient Problems: Problems Problem Status Onset Spontaneous bacterial peritonitis Acute Sepsis Acute
[2018-12-22] MEDS: morphINE SR 15 MG TAB PO SCH ×2 (09:58→20:20)
[2018-12-22] MEDS ORDERED: FUROSEMIDE 40 MG/4 ML VIAL IVP ONE (16:51)
[2018-12-22] MEDS ORDERED: ALBUMIN 25% 200 ML IV ONE (16:52)
--- NOTE | 2018-12-22 19:30 | HOSPPROG ---
Hospitalist Progress Note Assessment/Plan: * SBP due malignant ascites -s/p IV Rocephin -continue PO cipro indefinitely due to loculated disease * Cholangiocarcinoma - widely metastatic * Volume overload -IV lasix * Portal vein thrombosis - likely chronic -risk of anti-coagulation outweigh benefit * Metabolic encephalopathy -improved * Recent hepatic abscess s/p IV abx -no evidence for recurrence * Viral bronchitis due to RSV Subjective: no new complaint.s Objective: Vital Signs Temp Pulse Resp BP Pulse Ox 36.5 C 79 97 H 114/60 3 L 12/22/18 15:25 12/22/18 15:25 12/22/18 15:25 12/22/18 15:25 12/22/18 15:25 Microbiology 12/19/18 13:30 Gram Stain - Final Peritoneal Fluid - Aspirate 12/15/18 16:40 Gram Stain - Final Peritoneal Fluid - Aspirate Anaerobic Culture - Final Laboratory Results 12/22/18 04:15 12/22/18 18:15 12/21/18 12/22/18 12/23/18 05:59 05:59 05:59 Intake Total 1150 1200 320 Output Total 300 550 Balance 850 650 320 PT 18.5 SEC (12.0-15.0) H 12/18/18 15:50 INR 1.53 (0.83-1.16) H 12/18/18 15:50 CXR viewed, my personal interpretation is - left effusion paracentesis US reviewed - very loculated fluid makes drainage difficult - Physical Exam Constitutional: no apparent distress, appears nourished, not in pain Cardiovascular: regular rate and rhythym, no murmur, rub, or gallop Gastrointestinal: soft, non-tender abdomen, ascites, distension, No guarding, No rebound Skin: no rashes or abrasions, no fluctuance, no induration Neurologic: AAOx3, sensation intact bilaterally Psychiatric: interacting appropriately, not anxious, not encephalopathic, thought process linear ICD10 Worksheet Patient Problems: Problems Problem Status Onset Spontaneous bacterial peritonitis Acute Sepsis Acute
[2018-12-23 06:10] LABS: PLATELET COUNT 46 10^3/uL (150-400)
[2018-12-23] MEDS ORDERED: POTASSIUM CL 10 MEQ TAB PO ONE ×2 (06:23→09:06)
[2018-12-23] MEDS: CIPROFLOXACIN 500 MG TAB PO SCH (09:14)
[2018-12-23] MEDS: FUROSEMIDE 40 MG/4 ML VIAL IVP SCH ×2 (09:14→16:25)
[2018-12-23] MEDS: FAMOTIDINE 20 MG TAB PO SCH ×2 (09:14→20:59)
[2018-12-23] MEDS: MULTIVITAMINS 1 EACH TAB PO SCH (09:14)
[2018-12-23] MEDS: DEXAMETHASONE 2 MG TAB PO SCH (09:14)
[2018-12-23] MEDS: morphINE SR 15 MG TAB PO SCH ×2 (09:14→20:59)
[2018-12-23] MEDS ORDERED: ALBUMIN 25% 200 ML IV ONE (09:47)
[2018-12-23] MEDS: traMADol 50 MG TAB PO PRN (16:25)
--- NOTE | 2018-12-23 16:42 | HOSPPROG ---
Hospitalist Progress Note Assessment/Plan: * SBP due malignant ascites -s/p IV Rocephin -continue PO cipro indefinitely due to loculated disease * Cholangiocarcinoma - widely metastatic * Volume overload -still with massive volume overload -continue IV lasix + IV albumin today -add spironolactone - likely portal HTN due to hepatic mets * Portal vein thrombosis - likely chronic -risk of anti-coagulation outweigh benefit * Metabolic encephalopathy -improved * Recent hepatic abscess s/p IV abx -no evidence for recurrence * Viral bronchitis due to RSV Subjective: much better with diuresis, abd less distended Objective: Vital Signs Temp Pulse Resp BP Pulse Ox 36.9 C 78 18 110/62 98 12/23/18 16:34 12/23/18 16:34 12/23/18 16:34 12/23/18 16:34 12/23/18 16:34 Microbiology 12/19/18 13:30 Gram Stain - Final Peritoneal Fluid - Aspirate 12/15/18 16:40 Gram Stain - Final Peritoneal Fluid - Aspirate Anaerobic Culture - Final Laboratory Results 12/23/18 05:45 12/23/18 05:45 12/22/18 12/23/18 12/24/18 05:59 05:59 05:59 Intake Total 1200 320 Output Total 550 2200 600 Balance 650 -1880 -600 PT 18.5 SEC (12.0-15.0) H 12/18/18 15:50 INR 1.53 (0.83-1.16) H 12/18/18 15:50 - Physical Exam Constitutional: no apparent distress, appears nourished, not in pain Cardiovascular: regular rate and rhythym, no murmur, rub, or gallop Gastrointestinal: normoactive bowel sounds, soft, non-tender abdomen, no palpable masses, ascites, distension, No guarding, No rebound Skin: no rashes or abrasions, no fluctuance, no induration Neurologic: AAOx3, sensation intact bilaterally Psychiatric: interacting appropriately, not anxious, not encephalopathic, thought process linear ICD10 Worksheet Patient Problems: Problems Problem Status Onset Spontaneous bacterial peritonitis Acute Sepsis Acute
--- NOTE | 2018-12-23 17:12 | ASMTCMCOM ---
CM Note CM Note Notes: discussed case with RN and PT. PT rec SNF at this time. Pt is reporting she wants to go home. CM to follow. Plan: SNF vs [facility] Date Signed: 12/23/2018 05:12 PM Electronically Signed By:BRUNA Ac
--- NOTE | 2018-12-23 19:14 | SOAPPROG ---
SOAP Progress Note Assessment/Plan: Assessment: SOAP Progress Note Assessment/Plan: A/P: * SBP with malignant ascites-s/p course of IV rocephin, will need indefinite cipro prophylaxis * Liver abscess: essentially resolved. * Metastatic cholangiocarcinoma: extensive, but stable disease w gem/cis but further tx will depend on performance status. Last chemo 10/2018. * Anemia, thrombocytopenia: likely multifactorial (infection, abx, anemia of chemo/chronic disease). HIT a consideration, but multiple other etiologies possible. No indication for xfus. * Portal vein thrombosis: appears chronic. Holding AC due to thrombocytopenia. * Deconditioning-patient lives with daughter. Anticipating SNF for rehab. * Fluid overload-marked improvement today with diuresis. helps her be more mobile * RSV-respiratory symptoms improving. Subjective: feels much better, more mobile, less edema Objective: Vital Signs Temp Pulse Resp BP Pulse Ox 36.9 C 78 18 110/62 98 12/23/18 16:34 12/23/18 16:34 12/23/18 16:34 12/23/18 16:34 12/23/18 16:34 Microbiology 12/19/18 13:30 Gram Stain - Final Peritoneal Fluid - Aspirate 12/15/18 16:40 Gram Stain - Final Peritoneal Fluid - Aspirate Anaerobic Culture - Final Laboratory Results 12/23/18 05:45 12/23/18 05:45 12/22/18 12/23/18 12/24/18 05:59 05:59 05:59 Intake Total 4287 418 9740 Output Total 550 2200 600 Balance 650 -1880 400 PT 18.5 SEC (12.0-15.0) H 12/18/18 15:50 INR 1.53 (0.83-1.16) H 12/18/18 15:50 Physical Exam - Physical Exam General Appearance: alert, no apparent distress Neck: supple Respiratory: lungs clear Abdomen: other (soft, less distended) Extremities: other (2+ edema, much improved) Neuro/Psych: alert ICD10 Worksheet Patient Problems: Problems Problem Status Onset Spontaneous bacterial peritonitis Acute Sepsis Acute
[2018-12-23] MEDS ORDERED: POTASSIUM CL 20 MEQ TAB PO ONE (21:01)
[2018-12-24 07:00] LABS: PLATELET COUNT 49 10^3/uL (150-400)
--- NOTE | 2018-12-24 10:35 | ASMTCMCOM ---
CM Note CM Note Notes: As of 12/23/18, PT recommending SNF Rehab. Prior to this it was HHC vs SNF and [facility] did visit with pt. Call made to daughterMarion to discuss options with her. Message left. D/C Plan: C vs SNF Date Signed: 12/24/2018 10:34 AM Electronically Signed By:Paty Barajas
[2018-12-24] MEDS: SPIRONOLACTONE 50 MG TAB PO SCH (13:30)
[2018-12-24] MEDS: DEXAMETHASONE 2 MG TAB PO SCH (13:31)
[2018-12-24] MEDS: MULTIVITAMINS 1 EACH TAB PO SCH (13:31)
[2018-12-24] MEDS: FAMOTIDINE 20 MG TAB PO SCH ×2 (13:31→20:26)
[2018-12-24] MEDS: CIPROFLOXACIN 500 MG TAB PO SCH (13:31)
[2018-12-24] MEDS: morphINE SR 15 MG TAB PO SCH ×2 (13:31→20:26)
[2018-12-24] MEDS: FUROSEMIDE 40 MG/4 ML VIAL IVP SCH ×2 (13:38→19:28)
--- NOTE | 2018-12-24 15:50 | ASMTCMCOM ---
CM Note CM Note Notes: CM met with pt and her daughter. They are interested in SNF/Rehab and have been given contact info for both [facility] and [facility]; they live together in [place]. They have also been given some info re Medicare. Pt was in the hospital last October and by the time she is ready to go to a SNF may have used up her first 20 days of Medicare. They would like to know what the co-pay would be. Both facilities were asked within referrals in [employer]. CM will continue to check in with pt and her daughter as the d/c date becomes more clear. D/C Plan: Possibly SNF/rehab Date Signed: 12/24/2018 03:50 PM Electronically Signed By:Paty Barajas
[2018-12-24] MEDS ORDERED: acetaZOLAMIDE 250 MG in SYRINGE 0 ML IVP ONE (16:16)
--- NOTE | 2018-12-24 16:17 | HOSPPROG ---
Hospitalist Progress Note Assessment/Plan: # SBP - also consider secondary bacterial peritonitis - s/p iv abx - cont indefinite cipro 500 daily # recent hepatic abscess # cholangiocarcinoma - considering stopping treatment - has biliary stents # volume overload - cont laiv 40 iv bid - cont aldactone - add diamox with rising bicarb # portal vein thrombosis - chronic - no AC # viral bronchitis/RSV Subjective: we discussed all her options moving forward (dispo, hospice, etc) with dtr present Objective: Vital Signs Temp Pulse Resp BP Pulse Ox 36.7 C 87 18 131/86 H 95 12/24/18 07:56 12/24/18 12:00 12/24/18 12:00 12/24/18 12:00 12/24/18 12:00 Microbiology 12/19/18 13:30 Gram Stain - Final Peritoneal Fluid - Aspirate Laboratory Results 12/24/18 06:00 12/24/18 06:00 12/23/18 12/24/18 12/25/18 05:59 05:59 05:59 Intake Total 320 1100 Output Total 2200 1700 Balance -1880 -600 PT 18.5 SEC (12.0-15.0) H 12/18/18 15:50 INR 1.53 (0.83-1.16) H 12/18/18 15:50 - Time Spent With Patient Time Spent with Patient: greater than 35 minutes Time Spent with Patient: Greater than 35 minutes spent on this patients care, greater than 50% of time spent counseling, educating, and coordinating care regarding the above mentioned plan. - Physical Exam Constitutional: chronically ill appearing Gastrointestinal: normoactive bowel sounds, soft, non-tender abdomen Musculoskeletal: other (3+ bilat LE edema) ICD10 Worksheet Patient Problems: Problems Problem Status Onset Spontaneous bacterial peritonitis Acute Sepsis Acute
--- NOTE | 2018-12-24 18:02 | SOAPPROG ---
SOAP Progress Note Assessment/Plan: A/P: * Peritonitis: complete one week abx, then SBP prophylaxis. * Liver abscess: essentially resolved. * Ascites: loculated fluid collections make taps (and possibility of indwelling cathether) less helpful. * Metastatic cholangiocarcinoma: under good control w gem/cis but further tx will depend on performance status. Last chemo 10/2018. * Anemia, thrombocytopenia: likely multifactorial (infection, abx, anemia of chemo/chronic disease). HIT a consideration, but multiple other etiologies possible. No indication for xfus. * Portal vein thrombosis: appears chronic. Holding AC due to thrombocytopenia. Long discussion with pt and dtr about options, including no further therapy and hospice. Unclear how able she will be to live at dtr's house (stairs, etc.). They currently have [facility] palliative care. She would not be a candidate for further tx unless her PS improves. She would not be a candidate for continued gem/cis unless her plt count improves. Dr. Lucero and I discussed MSI testing. If MSI-H, pembolizumab could be considered. Clarified advanced directives. She is DNR and has completed a MOST form. 12/24/18 18:03 Subjective: Slowly improving. Daughter, Marion, present. O: VS reviewed, AF Gen: fatigued, chronically ill appearing, NAD. Lungs: breathing comfortably. CV: sig bilat LE edema Laboratory Tests 12/24/18 12/24/18 06:00 06:00 WBC 10.23 H Hgb 7.0 L Plt Count 49 L Sodium 136 Potassium 3.7 Chloride 100 Carbon Dioxide 33 H BUN 15 Creatinine 0.8 Glucose 107 H Total Bilirubin 1.3 Conjugated Bilirubin 0.6 H AST 33 ALT 35 Alkaline Phosphatase 175 H Objective: Vital Signs Temp Pulse Resp BP Pulse Ox 36.9 C 88 18 111/66 92 12/24/18 16:00 12/24/18 16:00 12/24/18 16:00 12/24/18 16:00 12/24/18 16:00 Microbiology 12/19/18 13:30 Gram Stain - Final Peritoneal Fluid - Aspirate Laboratory Results 12/24/18 06:00 12/24/18 06:00 12/23/18 12/24/18 12/25/18 05:59 05:59 05:59 Intake Total 320 1100 Output Total 2200 1700 Balance -1880 -600 PT 18.5 SEC (12.0-15.0) H 12/18/18 15:50 INR 1.53 (0.83-1.16) H 12/18/18 15:50 ICD10 Worksheet Patient Problems: Problems Problem Status Onset Spontaneous bacterial peritonitis Acute Sepsis Acute
[2018-12-24] MEDS ORDERED: POTASSIUM CL 10 MEQ TAB PO ONE (19:52)
[2018-12-25 06:27] LABS: PLATELET COUNT 53 10^3/uL (150-400)
--- NOTE | 2018-12-25 09:40 | PDPCPN ---
Palliative Care Progress Note Assessment/Plan: Assessment: [facility] [address] [place] [id number] (O) [phone](F) PALLIATIVE CARE NOTE NAME:Rebekah Ayala : 52 Date: 12/16/2018 VISIT TYPE: Follow-up inpatient palliative care visit LOCATION: [facility] LEVEL OF CARE: Hospice eligible DIAGNOSES: 1. Cholangiocarcinoma 2. Hepatic abscess CC: Initial palliative hospital visit HPI: Ms. Ayala is a 68-year-old female with a history of cholangiocarcinoma diagnosed in January 2018. She has been receiving cisplatin and gemcitabine chemotherapy. For the most part she has been tolerating this fairly well however has experienced nausea and fairly significant fatigue. She began experiencing increasing abdominal pain with some abdominal bloating. She has been at home and has been experiencing increasing abdominal discomfort. She states that she has not been eating secondary to some nausea as well as anorexia. She also experiences some increase in pain with eating. Her pain also increases with movement. She has been admitted to [facility] with a likely peritonitis. Cultures are still pending at this time. She continues to have fairly significant abdominal pain which she localizes to the lower abdominal region. She has complained of increasing confusion which is corroborated by her son. She has complaint of significant generalized edema. She has concern with taking more opioids as she does not like how it makes her feel and act especially around her grandchildren. Her son verbalizes this same concern however also struggles with seeing his mother in pain. She has also had several falls at home. PMH: As above ALLERGIES: NKDA FAMILY HISTORY: Mother with a history of lung cancer SOCIAL HISTORY: She lives independently and has 3 children. PATIENT GOALS OF CARE: 1. Symptom management including pain and nausea 2. Return home and live independently. 3. Continue treatment. 4. Spend time with her children and grandchildren ACTIVE SYMPTOMS/ASSESSMENTS/RECOMMENDATIONS: 1. Cholangiocarcinoma C 22.1: Metastatic disease. Has been receiving cisplatin and gemcitabine which is on hold at this time due to hepatic abscess And now peritonitis. 2. Pain G89.3: She continues on her morphine extended release 15 mg twice a day. She also has hydromorphone when necessary ordered. She has only received this twice since her admission and we have discussed with she and her son to utilize this more frequently. MODIFIED [place] SYMPTOM ASSESSMENT SCALE: 0-none; 1-3 mild; 4-6 moderate; 7-10 severe Unable to Respond: No [ ] Delirium: 0-none Depression: 0-none Anxiety: 0none Tiredness (fatigue): 5-Mod Drowsiness (sleepiness): 0-none Pain: 5 Nausea: 2 Anorexia: 0-none Shortness of Breath: 0-none Secretions: 0-none Constipation: 0-none Symptom and side effect management: (acceptable to patient and family) RISK FACTORS FOR RE-HOSPITALIZATION: o LIVES ALONE o CAREGIVER ANXIETY o >2 HOSPITALIZATIONS IN PAST 12 MONTHS o DISEASE EDUCATION DEFICIT OBJECTIVE FINDINGS Palliative Performance Score: 60 FAST: Not applicable NYHA: n/a Vital Signs: Wt: MAC: Neuro: A&O to person, place, time and event HEENT: Normocephalic; atraumatic RESP: Regular, deep, symmetrical. No cough or wheezing CV: no LE edema GI: mildly distended and firm. Tenderness to palpation primarily in the lower quadrants. : no dysuria or hematuria MSK: moderate muscle wasting. Ambulatory SKIN: intact LAB Data: N/A Disposition: Current inpatient admission ADVANCE CARE PLANNING DISCUSSION MOST Form: DNR PLAN: 1. ASSOCIATE PROFESSOR OF CHEMISTRY visit schedule Upon discharge for community palliative care support. 2. Palliative Supportive Service referrals for SW to be made upon discharge to home Thank you for the opportunity to participate in the care of this patient. TIME SPENT: [id number] 35 min >50% of the time spent counseling, educating and coordinating the above topics. Umesh Bolton [facility] Plan: 12/17/18 16:35 Subjective: [facility] [address] [place] [id number] (O) [phone](F) PALLIATIVE CARE NOTE NAME:Rebekah Ayala : 52 Date: 12/23/2018 VISIT TYPE: Follow-up inpatient palliative care visit LOCATION: [facility] LEVEL OF CARE: Hospice eligible DIAGNOSES: 1. Cholangiocarcinoma 2. Hepatic abscess CC: Follow-up palliative hospital visit HPI: Ms. Ayala is a 68-year-old female with a history of cholangiocarcinoma diagnosed in January 2018. She has been receiving cisplatin and gemcitabine chemotherapy. For the most part she has been tolerating this fairly well however has experienced nausea and fairly significant fatigue. Since the last visit her abdominal pain has significantly improved however she continues to have some intermittent sharp pains. She continues on her MS Contin and when necessary tramadol. She has not been utilizing hydromorphone. She states that she feels that she is slowly improving with regard to fatigue and weakness. She does have complained of an intermittent nonproductive cough. She was found to be positive for RSV. PMH: As above ALLERGIES: NKDA FAMILY HISTORY: Mother with a history of lung cancer SOCIAL HISTORY: She lives independently and has 3 children. PATIENT GOALS OF CARE: 1. Symptom management including pain and nausea 2. Return home and live independently. 3. Continue treatment. 4. Spend time with her children and grandchildren ACTIVE SYMPTOMS/ASSESSMENTS/RECOMMENDATIONS: 1. Cholangiocarcinoma C 22.1: Metastatic disease. Has been receiving cisplatin and gemcitabine which is on hold at this time due to hepatic abscess And now peritonitis. 2. Pain G89.3: She continues on her morphine extended release 15 mg twice a day. She also has hydromorphone when necessary ordered. she also has when necessary tramadol. Her pain is significantly improved. MODIFIED [place] SYMPTOM ASSESSMENT SCALE: 0-none; 1-3 mild; 4-6 moderate; 7-10 severe Unable to Respond: No [ ] Delirium: 0-none Depression: 0-none Anxiety: 0none Tiredness (fatigue): 5-Mod Drowsiness (sleepiness): 0-none Pain: 2 Nausea: 1 Anorexia: 0-none Shortness of Breath: 0-none Secretions: 0-none Constipation: 0-none Symptom and side effect management: (acceptable to patient and family) RISK FACTORS FOR RE-HOSPITALIZATION: o LIVES ALONE o CAREGIVER ANXIETY o >2 HOSPITALIZATIONS IN PAST 12 MONTHS o DISEASE EDUCATION DEFICIT REVIEW OF SYSTEMS: CONSTITUTIONAL: No weight loss, fever, chills. Complaint of significant fatigue and weakness HEENT: Eyes: No visual loss, blurred vision, double vision or yellow sclerae. Ears, Nose, Throat: SKIN: No rash or itching. CARDIOVASCULAR: No chest pain, chest pressure or chest discomfort. Complaint of lower extremity edema RESPIRATORY: No shortness of breath. Complaint of intermittent nonproductive cough GASTROINTESTINAL: No anorexia, nausea, vomiting or diarrhea. Complaint of intermittent abdominal pain. GENITOURINARY: No burning on urination. NEUROLOGICAL: No headache, dizziness, syncope, paralysis, ataxia, numbness or tingling in the extremities. No change in bowel or bladder control. MUSCULOSKELETAL: No muscle, back pain, joint pain or stiffness. HEMATOLOGIC: No anemia, bleeding or bruising. LYMPHATICS: No enlarged nodes. No history of splenectomy. PSYCHIATRIC: No history of depression or anxiety. ENDOCRINOLOGIC: No reports of sweating, cold or heat intolerance. No polyuria or polydipsia. ALLERGIES: No history of asthma, hives, eczema or rhinitis. OBJECTIVE FINDINGS Palliative Performance Score: 60 FAST: Not applicable NYHA: n/a Vital Signs: Wt: MAC: Neuro: A&O to person, place, time and event HEENT: Normocephalic; atraumatic RESP: Regular, deep, symmetrical. No cough or wheezing CV: +1-2 lower extremity edema GI: mildly distended and firm. Tenderness to palpation primarily in the lower quadrants. : no dysuria or hematuria MSK: moderate muscle wasting. Ambulatory SKIN: intact LAB Data: N/A Disposition: Current inpatient admission ADVANCE CARE PLANNING DISCUSSION MOST Form: DNR PLAN: 1. ASSOCIATE PROFESSOR OF CHEMISTRY visit schedule Upon discharge for community palliative care support. 2. Palliative Supportive Service referrals for SW to be made upon discharge to home Thank you for the opportunity to participate in the care of this patient. TIME SPENT: [id number] 35 min >50% of the time spent counseling, educating and coordinating the above topics. Umesh Bolton [facility] Objective: Vital Signs Temp Pulse Resp BP Pulse Ox 36.4 C 75 16 118/60 93 12/25/18 08:45 12/25/18 08:45 12/25/18 08:45 12/25/18 08:45 12/25/18 08:45 Microbiology 12/19/18 13:30 Gram Stain - Final Peritoneal Fluid - Aspirate Laboratory Results 12/25/18 06:15 12/25/18 06:15 12/24/18 12/25/18 12/26/18 05:59 05:59 05:59 Intake Total 1100 740 Output Total 1700 1000 Balance -600 -260 PT 18.5 SEC (12.0-15.0) H 12/18/18 15:50 INR 1.53 (0.83-1.16) H 12/18/18 15:50 ICD10 Worksheet Patient Problems: Problems Problem Status Onset Spontaneous bacterial peritonitis Acute Sepsis Acute
[2018-12-25] MEDS: MULTIVITAMINS 1 EACH TAB PO SCH (10:22)
[2018-12-25] MEDS: SPIRONOLACTONE 50 MG TAB PO SCH (10:22)
[2018-12-25] MEDS: CIPROFLOXACIN 500 MG TAB PO SCH (10:22)
[2018-12-25] MEDS: FUROSEMIDE 40 MG/4 ML VIAL IVP SCH ×2 (10:23→15:02)
[2018-12-25] MEDS: DEXAMETHASONE 2 MG TAB PO SCH (10:23)
[2018-12-25] MEDS: FAMOTIDINE 20 MG TAB PO SCH ×2 (10:23→20:26)
[2018-12-25] MEDS: morphINE SR 15 MG TAB PO SCH ×2 (10:23→20:26)
--- NOTE | 2018-12-25 12:42 | SOAPPROG ---
SOAP Progress Note Assessment/Plan: Assessment: Rebekah is 68-year-old female with history of metastatic cholangiocarcinoma. 1. Metastatic cholangiocarcinoma: She is followed by my partner Dr. Lucero. She did have a good response to gemcitabine cisplatin. She currently is not interested in receiving any further cancer directed care. 2. Peritonitis with history of liver abscess: She is currently on ciprofloxacin. 3. Anemia and thrombocytopenia: Likely related to underlying infection antibiotics. 4. Portal vein thrombosis: Holding anticoagulation. 5. Disposition: She previously spoke with my partner Dr. Black and we again discussed this today. She would like to be discharged to an outpatient rehab facility. She is also considering hospice and is currently receiving palliative care through [facility]. She does not want to pursue any further cancer directed care currently. 12/25/18 12:40 Subjective: No acute events overnight. No abdominal pain, chest pain fevers chills nausea or vomiting. Objective: Vital Signs Temp Pulse Resp BP Pulse Ox 36.7 C 81 16 111/59 L 96 12/25/18 12:00 12/25/18 12:00 12/25/18 12:00 12/25/18 12:00 12/25/18 12:00 Microbiology 12/19/18 13:30 Gram Stain - Final Peritoneal Fluid - Aspirate Laboratory Results 12/25/18 06:15 12/25/18 06:15 12/24/18 12/25/18 12/26/18 05:59 05:59 05:59 Intake Total 1100 740 Output Total 1700 1000 Balance -600 -260 PT 18.5 SEC (12.0-15.0) H 12/18/18 15:50 INR 1.53 (0.83-1.16) H 12/18/18 15:50 General: Pleasant-appearing female in no acute distress, accompanied by her daughter and son. Neuro: Moving all extremities Psych: Appropriate affect HEENT: Oropharynx is clear extraocular movements are intact Cardiovascular: Regular rate and rhythm Pulmonary: Clear to auscultation ICD10 Worksheet Patient Problems: Problems Problem Status Onset Spontaneous bacterial peritonitis Acute Sepsis Acute
[2018-12-25] MEDS ORDERED: acetaZOLAMIDE 250 MG in SYRINGE 0 ML IVP ONE (13:00)
--- NOTE | 2018-12-25 13:02 | HOSPPROG ---
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 - has biliary stents # volume overload - improved today - cont lasix 40 iv bid - cont aldactone - add diamox again (rising bicarb) # portal vein thrombosis - chronic - no AC # viral bronchitis/RSV Subjective: no complaints today; her edema feels better Objective: Vital Signs Temp Pulse Resp BP Pulse Ox 36.7 C 81 16 111/59 L 96 12/25/18 12:00 12/25/18 12:00 12/25/18 12:00 12/25/18 12:00 12/25/18 12:00 Microbiology 12/19/18 13:30 Gram Stain - Final Peritoneal Fluid - Aspirate Laboratory Results 12/25/18 06:15 12/25/18 06:15 12/24/18 12/25/18 12/26/18 05:59 05:59 05:59 Intake Total 1100 740 Output Total 1700 1000 Balance -600 -260 PT 18.5 SEC (12.0-15.0) H 12/18/18 15:50 INR 1.53 (0.83-1.16) H 12/18/18 15:50 - Physical Exam Constitutional: no apparent distress Cardiovascular: regular rate and rhythym, no murmur, rub, or gallop Respiratory: no respiratory distress, no rales or rhonchi, clear to auscultation Gastrointestinal: normoactive bowel sounds, soft, non-tender abdomen, no palpable masses Musculoskeletal: other (compression hose; 2+ bilat LE edema) ICD10 Worksheet Patient Problems: Problems Problem Status Onset Spontaneous bacterial peritonitis Acute Sepsis Acute
--- NOTE | 2018-12-25 13:27 | ASMTCMCOM ---
MARCO Note MARCO Note Notes: CM met with pt's daughter. She requested that a referral be made to [facility] which is close to her home. [facility] is their first choice, with [facility] their second choice. A referral was made. Pt plans to decline additional chemotherapy; this has been communicated to [facility] and [facility]. Daughter plans to bring her mother home following rehab and seek hospice care. D/C is anticipated tomorrow. D/C Plan: SNF Date Signed: 12/25/2018 01:27 PM Electronically Signed By:Paty Barajas
[2018-12-26] MEDS: morphINE SR 15 MG TAB PO SCH (09:43)
[2018-12-26] MEDS: MULTIVITAMINS 1 EACH TAB PO SCH (09:43)
[2018-12-26] MEDS: CIPROFLOXACIN 500 MG TAB PO SCH (09:43)
[2018-12-26] MEDS: FUROSEMIDE 40 MG/4 ML VIAL IVP SCH (09:43)
[2018-12-26] MEDS: DEXAMETHASONE 2 MG TAB PO SCH (09:44)
[2018-12-26] MEDS: SPIRONOLACTONE 50 MG TAB PO SCH (09:44)
[2018-12-26] MEDS: FAMOTIDINE 20 MG TAB PO SCH (09:44)
[2018-12-26 12:46] VITALS: BP 105/56
--- NOTE | 2018-12-26 12:49 | PDIAF ---
- Diagnosis Diagnosis: SBP Code Status: Do Not Resuscitate - Medication Management Discharge Medications: electronically signed and located in the Home Medication List. - Orders Services needed: Registered Nurse, Certified Rotary Kiln Operator, Physical Therapy, Occupational Therapy Isolation Type: Contact Isolation, Droplet Isolation Diet Recommendation: no restrictions on diet - Labs/Radiology BMP Date: 12/29/18 - Follow Up Care Current Providers and Referrals: Yolanda Lucero MD [Primary Care Provider] - As per Instructions
--- NOTE | 2018-12-26 13:19 | GDS ---
[f rep st] DISCHARGE SUMMARY ALL DIAGNOSES: 1. Spontaneous bacterial peritonitis, suspected. 2. Recent hepatic abscess, status post treatment. 3. Cholangiocarcinoma with plans to stop chemotherapy. 4. Volume overload, much improved. 5. Portal vein thrombosis, chronic. 6. Viral bronchitis/respiratory syncytial virus. 7. Anemia, stable for 3 days prior to discharge. 8. Rash, new on the day of discharge. HOSPITAL COURSE: This is a 68-year-old female with a recent treatment of a hepatic abscess, who was admitted with SBP. Microbiology on this was negative. She underwent a total of 7 days of treatment with intravenous Rocephin. She has significantly improved. Given her history of hepatic abscess, as well as malignant loculated ascites, a decision has been made to place her on indefinite prophylacti c antibiotics. She had been placed on ciprofloxacin, which is being changed on the day of discharge. She will be placed on indefinite Bactrim double strength, once daily. She developed a rash on the last day of her hospitalization. This is consistent with a drug eruption . She had initially been placed on ciprofloxacin for prophylaxis; however, this is being stopped giv en her rash. Other considerations, which may have triggered this, include spironolactone, as well as acetazolamide. On discharge, I am stopping all 3 of these medications. As above, I have placed her on Bactrim for prophylaxis. For diuresis, she will be on furosemide therapy alone. She does not mario ve any oral involvement of her rash on the day of discharge. For her volume overload, she received aggressive diuresis with furosemide, aldosterone and acetazolam kathie. Given the drug eruption, new medications, including aldosterone, as well as acetazolamide, are being stopped. She will be placed on furosemide with potassium supplementation. I have written to ashlyn keller her electrolytes and kidney function, about 4 days after discharge. Her edema, in her legs, has markedly improved. The day of discharge, her weight is 57.8 kg. Her creatinine is 0.9. Her potass ium is 4.0. Would consider reintroducing aldosterone if her rash resolves, as it is more likely attr ibuted to ciprofloxacin. She has a history of cholangiocarcinoma. She is planning on stopping chemotherapy at this point, giv en all of the complications that she has had. She has a history of a portal vein thrombosis. Given her thrombocytopenia, the risks and benefit kyrie ghs stopping her anticoagulation. This has been discussed with her and I think that this is reasonab le. I am stopping her Xarelto. She additionally had RSV bronchitis. She is still coughing, but symptomatically improving from this. FOLLOW UP: 1. With Dr. Lucero for ongoing discussions about her chemotherapy. 2. She may follow up with Infectious Disease, as needed. BILLING: I spent more than 30 minutes on the day of discharge coordinating care. /[id number]/MODL
--- NOTE | 2018-12-26 14:12 | ASMTDCNOTE ---
Case Management Discharge Discharge Order Complete? Answers: Yes Patient to Obtain Answers: Other Notes: [facility] ([facility]) Transportation Arranged Answers: Other Notes: [facility] to arrange transport Case Management Transport Answers: Yes Form Complete Faxed Final Orders Answers: Yes Agency/Facility Transfer Answers: Yes Report Printed & Faxed to Receiving Agency Family Notified Answers: Yes Discharge Comments Notes: Pt is being discharged to [facility] SNF. Family and pt notified. [facility] to schedule transport. No other concerns noted. Jonah submit updates. Date Signed: 12/26/2018 02:11 PM Electronically Signed By:BRUNA Ac
--- NOTE | 2018-12-26 14:15 | ASDISCHSUM ---
Discharge Information Plan Status:SNF Medically Cleared to Leave: Discharge Date: D/C Disposition:Retirement Facility [facility] D/C Disposition:Retirement Facility Projected Discharge Date:12/26/2018 11:00 AM Transportation at D/C:[facility] Dis[facility] Delay Reason: Follow-Up Date:12/26/2018 11:00 AM Discharge Slot: Final Diagnosis: Placement Information Referral Type:Palliative Care Referral ID:[id number] Provider Name:[facility] Address 1:[address] Phone Number: Address 2: Fax Number: City:[place] Selection Factors: State:[place] Referral Type:*Assisted/SNF Referral ID:[id number] Provider Name:[facility] Address 1:[address] Address 2: City:[place] Selection Factors: State:[place] Patient Contact Information Contact Name:TASHA Relationship:Daughter Address: Home Phone: City: [facility] Phone: State/Zip Code: Email: Financial Information Financial Class:Medicare Primary Plan Desc:MEDICARE INPATIENT Primary Plan Number:[id number] Secondary Plan Desc:DANIELJUSTA LUIS ARMANDO [facility] Secondary Plan Number:[id number] Assessment Information LACE LACE Length of stay for Answers: 7-13 days current admission Acuity / Level of Answers: Yes Care: Did the patient have an inpatient admission? Comorbidities - select Answers: Any tumor (including all that apply lymphoma or leukemia) Opioid dependence / Chronic pain Other Notes: Portal kathya thrombosis; Hepatic abscess # of Emergency department Answers: 1-2 visits in the last 6 months Score: 16 Date Signed: 12/26/2018 02:12 PM Electronically Signed By:BRUNA Ac [facility] CM Progress Note CM Note CM Note Notes: Patient seen in am rounds. She is a 68 year old with a diagnosis of metastatic cholangiocarcinoma who presented with increasing abdominal pain. She has recent history of hepatic abscess [facility] ID consulted. CM to follow for needs. Plan: TBD Date Signed: 12/16/2018 04:32 PM Electronically Signed By:Rebekah Wen RN [facility] CM Progress Note CM Note CM Note Notes: PT has been ordered, awaiting eval. Pt noted to be slowly improving. D/C Plan: TBD Date Signed: 12/17/2018 03:09 PM Electronically Signed By:Paty Barajas [facility] CM Progress Note CM Note CM Note Notes: Patient plan of care discussed in am rounds. 89 year old female with history of cholangiocarcinoma.Patient up in chair appears brighter today. For paracentesis with Dr. Hadley ordoñez pm. Current with [facility] and [facility]. CM to follow for needs. Plan: Dc with prior services when medically cleared for discharge to home. Date Signed: 12/19/2018 01:49 PM Electronically Signed By:Rebekah Wen RN [facility] CM Progress Note CM Note CM Note Notes: Patient plan of care reviewed in am rounds. Per therapy notes may needs SNF vs HHC. Patient continues to receive treatment for peritonitis Poor level of functioning. aDnya milian. [facility] following. Patient was seen by [facility]. CM to follow for needs. Plan: TBD Date Signed: 12/21/2018 01:25 PM Electronically Signed By:Rebekah Wen RN [facility] CM Progress Note CM Note CM Note Notes: discussed case with RN and PT. PT rec SNF at this time. Pt is reporting she wants to go home. CM to follow. Plan: SNF vs HHC Date Signed: 12/23/2018 05:12 PM Electronically Signed By:BRUNA Ac [facility] CM Progress Note CM Note CM Note Notes: As of 12/23/18, PT recommending SNF Rehab. Prior to this it was [facility] Call made to daughterMarion to discuss options with her. Message left. D/C Plan: HHC vs SNF Date Signed: 12/24/2018 10:34 AM Electronically Signed By:Paty Barajas [facility] Progress Note CM Note CM Note Notes: MARCO met with pt and her daughter. They are interested in SNF/Rehab and have been given contact info for both [facility] and [facility]; they live together in [place]. They have also been given some info re Medicare. Pt was in the hospital last October and by the time she is ready to go to a SNF may have used up her first 20 days of Medicare. They would like to know what the co-pay would be. Both facilities were asked within referrals in [employer]. MARCO will continue to check in with pt and her daughter as the d/c date becomes more clear. D/C Plan: Possibly SNF/rehab Date Signed: 12/24/2018 03:50 PM Electronically Signed By:Paty Barajas [facility] CM Progress Note CM Note CM Note Notes: MARCO met with pt's daughter. She requested that a referral be made to [facility] which is close to her home. [facility] their first choice, with [facility] their second choice. A referral was made. Pt plans to decline additional chemotherapy; this has been communicated to [facility] and [facility]. Daughter plans to bring her mother home following rehab and seek hospice care. D/C is anticipated tomorrow. D/C Plan: SNF Date Signed: 12/25/2018 01:27 PM Electronically Signed By:Paty Barajas Case Management Discharge Plan Note Case Management Discharge Discharge Order Complete? Answers: Yes Patient to Obtain Answers: Other Notes: [facility] ([facility]) Transportation Arranged Answers: Other Notes: [facility] to arrange transport Case Management Transport Answers: Yes Form Complete Faxed Final Orders Answers: Yes Agency/Facility Transfer Answers: Yes Report Printed & Faxed to Receiving Agency Family Notified Answers: Yes Discharge Comments Notes: Pt is being discharged to [facility]. Family and pt notified. [facility] to schedule transport. No other concerns noted. Jonah submit updates. Date Signed: 12/26/2018 02:11 PM Electronically Signed By:BRUNA Ac Intervention Information
--- NOTE | 2018-12-29 14:58 | PQFORM ---
PHYSICIAN QUERY FORM Needs Your Response This query form is being sent to you to assure this patient record is coded properly. Please respond to the question below: [employer] QUESTION: Dear Dr. Benjamin, In reviewing this patients medical record, it is noted that the patient held the diagnosis of "Sepsis." Patient presented to ER with hypotension, elevated WBC, BP of 95/67 and a Heart rate of 96 and was noted a "concern for sepsis." Noted in the H&P patient was diagnosed with 'sepsis' with a note that states "Patient has leukocytosis and source of infection." In the Medical Necessity Note patient was admitted for Sepsis. Noted in the Hospitalist Progress Notes dated 12/16-12/20 patient held the diagnosis of 'sepsis.' After study, should the diagnosis of "Sepsis" be included in the Discharge Summary? ___x__Yes No Unable to determine Other (please specify) Thank you, [facility]/Coding Dept. [phone] INSTRUCTIONS FOR RESPONSE: Answer question by clicking on the "Edit Document" button. Move cursor to area below the stars. When complete, hit "Save." Click on the "Sign" button, then click "Sign" again. Type in your PIN and hit "Enter." MICHELLED
== END 2018-12-26 15:18 | DRG 871 ==
LOC: F1N 17:06 → UNDODISIN 12-25 15:09
PROVIDERS: ADMIT Internal Medicine; ATTEND Internal Medicine
PROC: 0W9G3ZX Drainage of Peritoneal Cavity, Percutaneous Approach, Diagnostic (ICD-10-PCS; 2018-12-15)
PROC: 30233N1 Transfusion of Nonautologous Red Blood Cells into Peripheral Vein, Percutaneous Approach (ICD-10-PCS; 2018-12-17)
PROC: 0W9G3ZX Drainage of Peritoneal Cavity, Percutaneous Approach, Diagnostic (ICD-10-PCS; principal; 2018-12-19)
DX: A41.9 Sepsis, unspecified organism (principal); K65.2 Spontaneous bacterial peritonitis; I81 Portal vein thrombosis; C22.1 Intrahepatic bile duct carcinoma; E87.70 Fluid overload, unspecified; J20.5 Acute bronchitis due to respiratory syncytial virus; D64.9 Anemia, unspecified; L89.159 Pressure ulcer of sacral region, unspecified stage; Z79.01 Long term (current) use of anticoagulants; L27.0 Generalized skin eruption due to drugs and medicaments taken internally; T36.8X5A Adverse effect of other systemic antibiotics, initial encounter
CPT/HCPCS: 85520-90; 86301-90; 96374; 97110-GP; 97116-GP; 97162-GP; 97166-GO; 97530-GP; 97535-GO; J0696; J1120; J1170; J1335; J1642; J1644; J1650; J1940; J2270; J2405; P9016; P9047; Q9967